=== PATIENT | female | born 1935 | race Caucasian/White ===

== ENCOUNTER 2016-10-06 15:19 | Inpatient (IN) | payer MEDICARE, OTHER ==
[~2016-10-06] VITALS: Ht 175.3 cm; Wt 95.5 kg
[~2016-10-06 15:19] MED LIST: ALBU8.5H2 INHALATION; ASPI81TA3 PO; FURO-129 PO; HYDR-3825 PO; IPRA4AER IH; LEVO5TAB13 PO; LOVA20TA PO; METO25TA6 PO; MONT10TA23 PO; QUET50TA55 PO; SYMINH IH; TIOT18CA3 IH; TIZA4TAB4 PO; WARF1TAB PO
[2016-10-06 15:27] VITALS: BP 124/88; PULSE 147; RESP 22; O2SAT 93
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
[2016-10-06 19:36] LABS: BASOPHILS % (AUTO) 0.3 % (0-3); EOSINOPHILS % (AUTO) 1.9 % (0-5); Mean Corpuscular Hemoglobin 28.1 pg (27.0-35.0); Mean Corpuscular Volume 86.6 fL (81-100); NEUTROPHILS % (AUTO) 57.7 % (40-74); Platelet Count 212 bil/L (150-400)
[2016-10-06 21:51] LABS: INR 1.76 ratio
--- NOTE | 2016-10-06 22:21 | PCM.EDPN ---
ED Note Date of Service Oct 06, 2016 81-year-old female who presents with suicidal ideation and delusional disorder. She was completely worked up by MICHELE Centeno. Her charting was reviewed and physical examination and interview was also done by myself. The only thing I would add at this time is urinalysis with culture if indicated. She was evaluated by the CDP and will be detained for 72 hour hold to the [facility]. Dylon Renee MD Oct 06, 2016 22:21
[2016-10-06 23:44] VITALS: BP 156/78; PULSE 82; RESP 18; O2SAT 97
[2016-10-07] MEDS ORDERED: Benzocaine-Menthol Lozenge 2/Pkg PO PRN (00:05)
[2016-10-07] MEDS ORDERED: Alum-Mag Hydrox-Simeth 30 mL Suspension PO PRN (00:05)
[2016-10-07] MEDS ORDERED: Magnesium Hydroxide 10 mL Oral Concentration PO PRN (00:05)
--- NOTE | 2016-10-07 00:33 | NUR ---
This conservation science officer began sitting 2:1 with pt at approx 2100. Pt at time was pleasant, confused, paranoid and delusional. PT was not oriented to situation and had no idea why she was in hospital. Pt became upset and irritable when [facility] evaluated pt a little after 2100 and served pt detainment paperwork at approx 2215, Pt was labile: irritable/tearful. This conservation science officer and other sitter were able to calm pt. PT admitted to inpatient MH unit upstairs at approx 2327 discharging from ED.
--- NOTE | 2016-10-07 01:55 | NUR ---
Observations 1900 to 0700 Pt arrived on the floor from our ED at 23:35 and was able to complete the intake process even though it was very difficult due to the Pt being hard of hearing. Pt spent some time in the DR before going to her room for the night. Pt first appeared asleep at 01:00 and was observed every 15 minutes through the night as directed.
[2016-10-07] MEDS ORDERED: OMEP40CA36 PO (02:30)
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
[2016-10-07] MEDS: Tiotropium 18mcg/Cap 5 Capsule Inhaler Kit INHALATION SCH (08:34)
[2016-10-07 08:39] LABS: INR 1.56 ratio
[2016-10-07] MEDS: HYDROcodone-APAP 7.5-325 mg Tablet PO PRN (09:00)
--- NOTE | 2016-10-07 09:56 | PCM.CONPHA ---
Assessment/Plan Assessment/Plan ANTICOAGULATION MANAGEMENT BY PHARMACY -INDICATION: AFIB -HOME DOSE: 6 mg; SuWeFrSa? -CONCURRENT ANTICOAGULATION: NONE -CRCL: 58.61 ML/MIN -COAG TRENDS: Date Oct 07-Sep INR 1.76 1.56 ~ -0.2 Warf Dose none 5 MG -[id number] SCORE: 5 PLAN: Unsure when patients last dose was or even what home dose is. Patient reported 6 mg; SuWeFrSa but poor historian and no ext med rec to verify. With current INR at 1.56 (goal between 2-3) and today supposedly being her dosing day will give a OT dose of 5 mg and monitor INR to see how she responds. Serial INRs ordered and pharmacy will continue to monitor and adjust doses as needed. Thank you. Rose Fabian PharmD Oct 07, 2016 09:56
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
[2016-10-07 10:51] LABS: APPEARANCE,URINE TURBID (CLEAR,HAZY); COLOR,URINE YELLOW (YELLOW); OCCULT BLOOD,URINE NEGATIVE (NEGATIVE); UROBILINOGEN,URINE NORMAL (NORMAL)
[2016-10-07 13:44] VITALS: BP 138/81; PULSE 70; RESP 18
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
--- NOTE | 2016-10-07 16:17 | NUR ---
Nursing Dayshift: S: "Didn't you give me a pain pill this morning? I get one when I get up and when I go to bed." O: Patient received an extra strength Vicodin this AM for c/o back pain at a 07/06. "Hardly helps. I've been taking them for 10 years. they quit working long ago." Watching Family Feud at present with a peer of similar age. Fair appetite at meals. Interactive on approach. A: Med compliant. P: CPOC. Monitor mood and behavior.
--- NOTE | 2016-10-07 19:59 | NUR ---
Obs Dayshift Pt spent half the day in her room and the rest out in the milieu, talking w/ peers, watching TV or drawing. Pt is polite, superficial engaging w/ peers. Made a few calls today. Pleasant, polite, calm, encouraging toward some peers. Met w/ a friend from [facility] that was able to drop off her belongings and visit for a quick min. She stated that another group is looking at trying to get pt. into another living situation. Pt has Ok ADL's, Good meals
--- NOTE | 2016-10-08 04:15 | NUR ---
nursing, nights, 11-7 s/o- has appeared to sleep after 2129 during q 15 minute assessments. a- no apparent distress. p- monitor behavior/emotional state, quality, times and amount of sleep, use and effect of medication. fuentes
[2016-10-08] MEDS: HYDROcodone-APAP 7.5-325 mg Tablet PO PRN ×2 (04:43→22:07)
--- NOTE | 2016-10-08 04:47 | NUR ---
nursing, nights, 11-7 s- i hurt all over. the bed is so hard. thank you. o- asked for and received norco 7.5 at 0445 and returned to bed. a- will monitor effect. p- monitor behavior/emotional state, quality, times and amount of sleep, use and effect of medication. fuentes
--- NOTE | 2016-10-08 05:12 | NUR ---
Pt out on unit some this evening. Interacted with others appropriately. Asleep at 2130. Pt observed every 15 minutes as ordered.
[2016-10-08] MEDS: Tiotropium 18mcg/Cap 5 Capsule Inhaler Kit INHALATION SCH (08:42)
[2016-10-08 08:55] LABS: INR 1.39 ratio
[2016-10-08 09:00] VITALS: BP 116/72; PULSE 65; RESP 16
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
--- NOTE | 2016-10-08 14:47 | NUR ---
Nursing Note [id number] Behavior S/O: Pt refused 100mg of Seroquel stating she only takes 25 mg which she took. Pt took all other medications. Pleasant & cooperative with cares. Conversation tracking clear & organized with normal rate & rhythm. Pt able to ambulate by self. Interacts well with peers & staff. A: Pt clear with conversations with this staff member. P: Provide supportive environment. Monitor medications & effects.
--- NOTE | 2016-10-08 18:37 | NUR ---
Observations [id number] Pt was in common area upon start of shift watching TV with peer. Pt appeared confused at times regarding where her room was. She attended all meals eating 100%. Pt also attended group in the afternoon and worked on art. Pt interacted with other peers, but was agitated at times. She appeared upset regarding the food, stating that she can't eat fatty foods and was upset that she didn't get cake at dinner. Pt showered in the evening and requested to do laundry. Pt was observed every 15 minutes of shift as directed.
--- NOTE | 2016-10-08 22:47 | NUR ---
Nurses PRN Patient requested and received Jackson 1 tab for c/o arthritic back pain,05/06,maintenance technician 3rd shift to assess response.
--- NOTE | 2016-10-09 03:43 | NUR ---
nursing, nights, 11-7 s/o- has appeared to sleep after [id number] and after 0015 during q 15 minute assessments. a- no apparent distress. p- monitor behavior/emotional state, quality, times and amount of sleep, use and effect of medication. fuentes
--- NOTE | 2016-10-09 03:58 | NUR ---
Pt out on unit some later this evening. Interacted with others appropriately. Asleep [id number]. Pt observed every 15 minutes as ordered.
[2016-10-09 08:00] LABS: INR 1.75 ratio
[2016-10-09] MEDS: Tiotropium 18mcg/Cap 5 Capsule Inhaler Kit INHALATION SCH (08:14)
[2016-10-09] MEDS: HYDROcodone-APAP 7.5-325 mg Tablet PO PRN ×2 (08:21→20:11)
--- NOTE | 2016-10-09 11:46 | PROG NOTE ---
[address] [address] PROGRESS NOTE PATIENT: ROXANA ESPOSITO : 1935 MR#: [id number] ADMIT: 10/06/2016 JOB ID: [id number] DATE: 10/09/2016 CHIEF COMPLAINT: "I do not know where I am gonna live now." This is per patient report. HISTORY OF PRESENT ILLNESS: As stated above, the patient openly identified significant concern of her current housing. She indicated yesterday she received many of her belongings from the previous landlord. She indicated that she was informed that she was fully evicted from her current housing. She indicated that last evening she declined her full dose of Seroquel but evidently per nursing staff report this was administered at 100 mg. I did indicate to her that I elected to discontinue the morning dose of medications, and she was appreciative. She is much more alert this morning, able to track and follow conversations. She indicated that she feels not as tired or sedate. OBJECTIVE: On mental status exam, she was bright, cooperative. She was quite tangential in her speech, openly rambling about her previous difficulties with her neighbor and also her loss of belongings. Her mood is described as neutral. Her affect was congruent. Her thought process shows evidence of racing thoughts at times, some loose and disorganized thinking. She is fairly tangential but pleasant and redirectable. Her thought content, she denied any evidence of current suicidal or homicidal ideation. She was alert, oriented to person, place, and time. Attention and concentration fleeting. Insight and judgment are poor. PHYSICAL EXAMINATION: Vital signs of current. Temperature is 36.2, pulse 65, respirations 16, BP 116/72. MEDICATION REVIEW: Includes: 1. Warfarin 7 mg daily. 2. Seroquel 100 mg q.h.s. 3. Singulair 10 mg q.h.s. 4. Zyrtec 5 mg q.h.s. 5. Aspirin 81 mg daily. 6. Lasix 20 mg daily. 7. Lopressor 25 mg b.i.d. 8. Spiriva 18 mcg daily. 9. Zanaflex 4 mg q.8 h. p.r.n. 10. [place] 1 tablet q.6 h. p.r.n. for pain. ASSESSMENT: AXIS I 1. Dementia, not otherwise specified. 2. Delusional disorder, not otherwise specified. AXIS II Deferred. AXIS III 1. History of hypertension. 2. Chronic obstructive pulmonary disease. 3. Hyperlipidemia. 4. Deep venous thrombosis. AXIS IV Stressors are noted for absence of housing, disposition planning. AXIS V Global Assessment of Functioning current 30. PLAN: 1. Recommendation is for continuation of all medications noted. 2. Recommendation is for connections to be placed with ATS based on vulnerable adult. At this time I do not feel that the patient has full capacity of care of self, and possible assignment of an emergency guardian would be beneficial. 3. Recommendation for pursuit of additional supportive housing has been discussed with the treatment team, and this will be of further followed up by both Dr. Colvin and Dr. Camejo over the next several days.
--- NOTE | 2016-10-09 12:00 | NUR ---
Nursing Day Shift- S- "If you are bringing me my medications, I don't want to take that sleepy one in the morning." (Seroquel.) O- Pt. was awake and appropriately dressed for breakfast. She was polite with a loud tone. (Pt. has hearing loss per report.) She eat 50% breakfast and took her medications without issue. She was able to identify the names, doses and indications for her medications. Pt requested Drake 725/325 at 0830 for back pain rated 7/'10. She denied thoughts of self harm and was not overheard making any delusional comments. A- Appears to have improved mood since admission. P- Cont. TP
[2016-10-09 14:15] VITALS: BP 128/76; PULSE 106; RESP 16
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
--- NOTE | 2016-10-10 04:24 | NUR ---
Nursing Note Noc Pt asleep upon arrival to unit. Sleep time noted 2215 with 6 hr uninterrupted sleep. Q15 min safety checks done per protocol, no distress noted, no PRN's given on shift, WC sleep, behavior, safety
--- NOTE | 2016-10-10 05:30 | NUR ---
Pt out on unit this evening. Interacted with others appropriately. Asleep 9235. Pt observed every 15 minutes as ordered.
[2016-10-10] MEDS: Tiotropium 18mcg/Cap 5 Capsule Inhaler Kit INHALATION SCH (08:30)
[2016-10-10 08:46] LABS: INR 2.1 ratio
[2016-10-10] MEDS: HYDROcodone-APAP 7.5-325 mg Tablet PO PRN ×2 (09:06→20:24)
--- NOTE | 2016-10-10 12:05 | PCM.PNPSY ---
Subjective Date of Service Oct 10, 2016 Subjective I spent 30 minutes both reviewing treatment plan and providing supportive/ educational psychotherapy. I spent less than 50% of the time counseling the patient. I reviewed the treatment plan with the patient and discussed options available including the potential risks, benefits and side effects. Robin reports that she is fine, has no reason to be here, and no problem with thought organization or mood stability. She is aware that she has been evicted from her apartment. She feels that this is an injustice and that people do not understand. She continues to have a relatively fixed delusional belief about neighbors actively trying to poison her. She was quite upset about her difficulties with her neighbor and also the her loss of belongings. Staff reports that she has been bright and active on the unit and during group activities. She slept 8 hours and denies depression symptoms review. She denies medication side effects. Patient was not able to identify her medications nor what they were used to treat. She did not appear to understand the need for medications by the questions she asked during our discussion. Current Medications Current Medications Quetiapine Fumarate 100 mg HS PO Last administered on 10/09/16 20:16; Admin Dose 25 MG; Start 10/08/16 at 21:00 Warfarin Sodium 5 mg OT ONCE PO Last administered on 10/08/16 16:53; Admin Dose 5 MG; Start 10/08/16 at 17:00; Stop 10/08/16 at 17:01; Status DC Warfarin Sodium/ Warfarin Sodium 7 mg DAILY@17 ONCE PO Last administered on 17:42; Admin Dose 7 MG; Start 10/09/16 at 17:00; Stop 10/09/16 at 17:01 ; Status DC Mental Status Exam Appearance: Neat/well groomed Attitude: Pleasant, Cooperative Behavior: Distractible Affect: Well Modulated/Appropriate Mood: Irritable, Dysthymic Thought Process/Associations: Tangential Speech Production: Normal Speech Rate: Normal Speech Articulation: Normal Thought Content: Suspicious Danger to Self/Suicidal Ideati: None Danger to Others: None Delusions: Paranoid Consciousness: Hyper-vigilant Orientation: Person, Place, Date Estimate Intellectual Function: Above Average Attention/Concentration & Cogn: Impaired Insight: Limited Judgement: Poor Result Diagram: 10/06/16192810/06/161928 Mental Health Plan Robin remains quite disorganized, but is now able to follow conversations. She reportedly has had no evidence of suicidal ideation, intent, or plan but there was some concern that she had taken too much of her medications. She appears to be paranoid and has beliefs that have been fixed since her first admission in March believing that her neighbor is tracking, following her, video taping her and potentially that he has poisoned her through poison gas which is coming through the [place]illips She appears paranoid and has delusional beliefs that have been fairly fixed since her first admission in March believing that her neighbor is tracking, following her, video taping her and potentially that he has poisoned her through poison gas which is coming through the phillips [place] AXIS I 1. Dementia, not otherwise specified. 2. Delusional disorder, not otherwise specified. AXIS II Deferred. AXIS III 1. History of hypertension. 2. Chronic obstructive pulmonary disease. 3. Hyperlipidemia. 4. Deep venous thrombosis. AXIS IV Stressors are noted for absence of housing, disposition planning. AXIS V Global Assessment of Functioning current 30. Medications Medications to address General Physical Health 1. Warfarin 7 mg daily. 2. Seroquel 100 mg q.h.s. 3. Singulair 10 mg q.h.s. 4. Zyrtec 5 mg q.h.s. 5. Aspirin 81 mg daily. 6. Lasix 20 mg daily. 7. Lopressor 25 mg b.i.d. 8. Spiriva 18 mcg daily. 9. Zanaflex 4 mg q.8 h. p.r.n. 10. [place] 1 tablet q.6 h. p.r.n. for pain. Treatments Patient is being provided with a high degree of safety through the structure and active adult engagement. We will focus on developing improved coping skills and identifying stressors that may have led to current episode. We will attempt to: Integrate into therapeutic groups, milieu and individual therapy. Maintain in a closely monitored and structured unit Provide low-stimulation environment Obtain collateral data to assist in treatment planning Assess degree of lability of affect and impulse control Establish a consistent sleep pattern Medication effective in stabilization of mood and/or thought process Tolerates medication without side effects Patient will be on the following psychiatric medications: Seroquel 100 at bedtime Evaluate iatrogenic drug use as an etiology Address patient's legal status Patient is voluntary Disposition Recommendation is for connections to be placed with ATS based on vulnerable adult. At this time I do not feel that the patient has full capacity of care of self, and possible assignment of an emergency guardian would be beneficial. Recommendation for pursuit of additional supportive housing Adria Colvin MD Oct 10, 2016 12:05
[2016-10-10] MEDS: Albuterol-Ipratropium 120 Spray 4 Gm Inhaler INHALATION PRN (12:37)
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
[2016-10-10 14:21] VITALS: BP 98/56; PULSE 90; RESP 24
--- NOTE | 2016-10-10 16:13 | NUR ---
Observations 0700 to 1900 Pt maintained behavioral control throughout shift. Pt is confused, labile, agitated, friendly. Pt enjoys interacting with peers. "and how are you today." -- to multiple peers. Pt spent much of shift out on unit and in RT room, drawing and doing art and watching TV. Pt is cooperative and seeks interaction. Pt ate 75-100% of meals and was observed every 15 minutes as ordered.
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
--- NOTE | 2016-10-10 20:34 | NUR ---
MEDICATION REFUSAL Please note that the pt. refused to take her scheduled full dose of 100 mg Seroquel at HS. She agreed to take 25 mg. She reported the full dose "makes me loopy".
--- NOTE | 2016-10-11 04:06 | NUR ---
Observations from 0279-3243 Pt spent most of the evening with peers watching tv. Pt did attend wrap up group but only mentioned that her day was ok and she wasn't having any anxiety. Pt didn't want to elaborate further and went to bed shortly after group. Pt was observed asleep at 2245 and has appeared to sleep throughout the night. Pt has been monitored every 15 minutes as directed.
[2016-10-11] MEDS: HYDROcodone-APAP 7.5-325 mg Tablet PO PRN ×2 (04:37→20:31)
[2016-10-11 06:48] VITALS: BP 97/64; PULSE 90; RESP 16
[2016-10-11] MEDS: Tiotropium 18mcg/Cap 5 Capsule Inhaler Kit INHALATION SCH (07:52)
--- NOTE | 2016-10-11 11:02 | NUR ---
Nursing Day Shift- P- "Honey, you need to help her with that." (Pt. comment to staff regarding a peer.) O- Pt. was awake for breakfast. She had slept 7.5 hours per report. Pt. eat well at breakfast. She was polite and social with staff and peers. Pt. requested to do her own laundry, and completed it. A- Pt. is still delusional regarding her neighbors per staff report. No delusional comments made or overheard thus far today. P- Cont. TP.
--- NOTE | 2016-10-11 12:07 | PCM.PNPSY ---
Subjective Date of Service Oct 11, 2016 Subjective I spent 20 minutes both reviewing treatment plan and providing supportive/ educational psychotherapy. I spent less than 50% of the time counseling the patient. Robin repeats that she is fine, has no reason to be here, and no problem with thought organization or mood stability. She is aware that she has been evicted from her apartment. She feels that this is an injustice and that people do not understand. She continues to have a relatively fixed delusional belief about neighbors actively trying to poison her. She was quite upset about her difficulties with her neighbor and also the her loss of belongings. Staff reports that she has been bright and active on the unit and during group activities. She slept 8 hours and denies depression symptoms review. She denies medication side effects. Current Medications Current Medications Warfarin Sodium 5 mg DAILY@17 ONCE PO Last administered on 10/10/16 17:34; Admin Dose 5 MG; Start 10/10/16 at 17:00; Stop 10/10/16 at 17:01; Status DC Warfarin Sodium/ Warfarin Sodium 7 mg DAILY@17 ONCE PO Last administered on 17:42; Admin Dose 7 MG; Start 10/09/16 at 17:00; Stop 10/09/16 at 17:01 ; Status DC Mental Status Exam Appearance: Neat/well groomed Attitude: Pleasant, Cooperative Behavior: Distractible Affect: Well Modulated/Appropriate Mood: Irritable, Dysthymic Thought Process/Associations: Tangential Speech Production: Normal Speech Rate: Normal Speech Articulation: Normal Thought Content: Suspicious Danger to Self/Suicidal Ideati: None Danger to Others: None Delusions: Paranoid Consciousness: Hyper-vigilant Orientation: Person, Place, Date Estimate Intellectual Function: Above Average Attention/Concentration & Cogn: Impaired Insight: Limited Judgement: Poor Result Diagram: 10/06/16192810/06/161928 Mental Health Plan Robin remains quite disorganized, but is now able to follow conversations. She reportedly has had no evidence of suicidal ideation, intent, or plan but there was some concern that she had taken too much of her medications. She appears to be paranoid and has beliefs that have been fixed since her first admission in March believing that her neighbor is tracking, following her, video taping her and potentially that he has poisoned her through poison gas which is coming through the [place]. She continues to have this delusion today. She is voluntary and willing to be here. [place] AXIS I 1. Dementia, not otherwise specified. 2. Delusional disorder, not otherwise specified. AXIS II Deferred. AXIS III 1. History of hypertension. 2. Chronic obstructive pulmonary disease. 3. Hyperlipidemia. 4. Deep venous thrombosis. AXIS IV Stressors are noted for absence of housing, disposition planning. AXIS V Global Assessment of Functioning current 35. Medications Medications to address General Physical Health 1. Warfarin 7 mg daily. 2. Singulair 10 mg q.h.s. 4. Zyrtec 5 mg q.h.s. 5. Aspirin 81 mg daily. 6. Lasix 20 mg daily. 7. Lopressor 25 mg b.i.d. 8. Spiriva 18 mcg daily. 9. Zanaflex 4 mg q.8 h. p.r.n. 10. [place] 1 tablet q.6 h. p.r.n. for pain. Treatments Patient is being provided with a high degree of safety through the structure and active adult engagement. We will focus on developing improved coping skills and identifying stressors that may have led to current episode. We will attempt to: Integrate into therapeutic groups, milieu and individual therapy. Maintain in a closely monitored and structured unit Provide low-stimulation environment Obtain collateral data to assist in treatment planning Assess degree of lability of affect and impulse control Establish a consistent sleep pattern Medication effective in stabilization of mood and/or thought process Tolerates medication without side effects Patient will be on the following psychiatric medications: Patient refusing Seroquel 100 at bedtime but is willing to take 25 mg. I will write an order to clarify this Evaluate iatrogenic drug use as an etiology Address patient's legal status Patient is voluntary Disposition Recommendation is for connections to be placed with ATS based on vulnerable adult. At this time I do not feel that the patient has full capacity of care of self, and possible assignment of an emergency guardian would be beneficial. Recommendation for pursuit of additional supportive housing Adria Colvin MD Oct 11, 2016 12:07
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
--- NOTE | 2016-10-11 18:01 | NUR ---
INR P-Patient's INR today 3.0 I-Pharmacy called [facility] pharmacist verbalized approval to give Coumadin E- 3mg Coumadin given 1700.
--- NOTE | 2016-10-11 18:10 | NUR ---
Observations 0700 to 1900 Pt affect and mood was friendly, social and content. Pt speech and eye contact was good. Pt was in [place] most of the day. Pt attended group and unit activities. Pt did not attend community meeting and did not set a daily goal. Pt did some arts and crafts. Pt was social with staff and peers when approached. Pt attended meals in D.R. and ate 75% of all meals. Pt ate snacks. Pt maintained behavior throughout the shift. Pt was polite, pleasant and cooperative. Pt was observed every 15 minutes throughout the shift as ordered.
--- NOTE | 2016-10-11 22:00 | NUR ---
NURSING NOTE [id number] Orientation= x3 Mood= "oh, good!" Affect= pleasant, cooperative, calm Behavior= friendly and social w/peers, visible on unit watching TV, coloring, and chatting w/peers. Pt. mostly med compliant though she continues to refuse the full dose of HS Seroquel, opting to only take 25 mg vs. the scheduled 100 mg d/t complaints of excessive sedation. Pt. c/o excessive frequency of urination today and when informed she takes 20 mg Lasix daily here, she became upset and exclaimed "well that's all wrong-- I only take 5 mg at home, come on now!" Advised pt. to discuss this w/her doctor and will pass it on in shift report. Thought processes= can be quite logical and linear in conversation, but delusions about her home life still persist
--- NOTE | 2016-10-12 04:22 | NUR ---
Observations from 6142-7857 Pt had a visitor at the beginning of shift, and when asked if she wanted to visit, she said no, but changed her mind a few minutes later. Pt seemed to enjoy the visit but has been complaining of shoulder and neck pain from playing football. Pt appeared asleep at 2300 and has appeared to sleep soundly throughout the night and has been monitored every 15 minutes as directed.
--- NOTE | 2016-10-12 06:12 | NUR ---
Patient slept throughout noc shift, 7.0 hours plus. No requests for PRNS.
[2016-10-12] MEDS: Tiotropium 18mcg/Cap 5 Capsule Inhaler Kit INHALATION SCH (08:32)
[2016-10-12] MEDS: HYDROcodone-APAP 7.5-325 mg Tablet PO PRN ×2 (08:36→21:24)
[2016-10-12 09:00] VITALS: BP 133/72; PULSE 115; RESP 16
[2016-10-12 09:45] LABS: INR 4.52 ratio
[2016-10-12 10:12] VITALS: BP 133/72; PULSE 115; RESP 16
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
--- NOTE | 2016-10-12 18:19 | NUR ---
Observations [id number] Pt was asleep upon start of shift. Pt attended all meals eating 100%. She spent much of the day in the dining area working on art, and attended the art group. She also watched movies with peers. Pt appears to be very concerned regarding a few other patients who are elderly and has taken on a motherly role with them, encouraging them to eat and walk. Pt is friendly with staff and others. Pt appeared to be hard of hearing at times as well. She was observed every 15 minutes for the duration of the shift as directed.
--- NOTE | 2016-10-12 18:42 | PCM.PNPSY ---
Subjective Date of Service Oct 12, 2016 Subjective The patient reports today that she is hard of hearing and had difficulty hearing questions but answered appropriately. She appeared fixated on her neighbor who she feels had resulted in her eviction. She also stated that she was only willing to take 25 mg of the quetiapine as that is what she been taking in the community. For the last 3 days she is only been taking 25 mg of the 100 mg dose. According to [facility] she last received quetiapine 25 mg 3 times a day in April. She is oriented to Wednesday the 2016. "[facility] [place]." She reports that although she has had some memory difficulties she is unwilling to started a medication such as Namenda without 's approval. She reports using Vicodin twice a day or less in order to avoid "becoming a drug addict." Sleep: 7+ hours Appetite: "Okay" Suicidal and homicidal ideation: Denies Auditory hallucinations: Denies Visual hallucinations: Denies Other Psychotic Symptoms: Ongoing paranoia regarding neighbor appears at baseline. Anxiety: Denies Depression: Denies Current Medications Current Medications Warfarin Sodium 3 mg DAILY@17 ONCE PO Last administered on 10/11/16t 17:12; Admin Dose 3 MG; Start 10/11/16 at 17:00; Stop 10/11/16 at 17:01; Status DC Mental Status Exam Appearance: Neat/well groomed Attitude: Pleasant, Cooperative Behavior: Distractible (somewhat) Affect: Well Modulated/Appropriate Mood: Euthymic Thought Process/Associations: Tangential, Circumstantial Speech Production: Loud Speech Rate: Normal Speech Articulation: Normal Thought Content: Suspicious (only regarding neighbor) Danger to Self/Suicidal Ideati: None Danger to Others: None Delusions: Paranoid Hallucinations: Auditory (Denies), Visual (Denies) Consciousness: Hyper-vigilant Orientation: Person, Place, Date, Situation Memory: Grossly Intact Estimate Intellectual Function: Average Attention/Concentration & Cogn: Impaired Insight: Limited Judgement: Limited Result Diagram: 10/06/16192810/06/161928 Mental Health Plan The patient is an 81-year-old female with a history of delusional disorder and 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 She is only been taking portion of her quetiapine and so her full response to this medication is unknown. The patient is currently homeless and is not appropriate for discharge to a snf given her age, medical condition, and mobility issues. She is not currently willing to start Namenda and Dr. Leos had left for the day and will be available until noon tomorrow. [place] AXIS I 1. Dementia, not otherwise specified. 2. Delusional disorder, not otherwise specified. AXIS II Deferred. AXIS III 1. History of hypertension. 2. Chronic obstructive pulmonary disease. 3. Hyperlipidemia. 4. Deep venous thrombosis. AXIS IV psychosocial stressors moderate to severe with homelessness, poor insight, lack of social supports, and poor coping skills. AXIS V Global Assessment of Functioning current 35. Medications [place] 7.5/325 Furosemide 20 mg daily Metoprolol 25 mg twice daily Spiriva 18 g daily Aspirin 81 mg daily Singulair 10 mg nightly Cetirizine 5 mg at bedtime Combivent one spray 4 times a day as needed Quetiapine 100 mg at bedtime Treatments 1. Change quetiapine to 25 mg in the morning and 50 mg at bedtime to better address adherence. 2. The patient is likely in need of an adult family home or similar arrangements. 3. A guardian may be necessary given patient's limited understanding. 4. The patient is encouraged to participate with groups and individual therapy. 5. The patient will meet with the treatment team on a daily basis to assess symptoms, side effects, and response to treatment. Sanjay Camejo MD Oct 12, 2016 18:42
[2016-10-12] MEDS: Albuterol-Ipratropium 120 Spray 4 Gm Inhaler INHALATION PRN (21:20)
--- NOTE | 2016-10-13 01:08 | NUR ---
Observations 1900 to 0700 Pt was out in the DR watching TV for most of the night. Pt first appeared asleep at 01:00 and was observed every 15 minutes through the night as directed. Addendum: 10/13/16 at 0112 by LUNA BARNARD [facility] Pt first appeared 22:00 not 01:00.
--- NOTE | 2016-10-13 06:35 | NUR ---
Nursing Noc Pt spent her time out on the unit happily crafting and keeping herself busy. Appropriate & social with peers. Well groomed and aware of medications. She stated "Bring my medications in their packets so I can tell you what I take and don't take". Took evening medications without difficulty. Vicodin 1 tab po prn requested and given for pain with apparent results. No further complaints. Adequate sleep through the night with no noted distress or awakening per protocol checks. Total sleep over 8 hours.
[2016-10-13] MEDS: Tiotropium 18mcg/Cap 5 Capsule Inhaler Kit INHALATION SCH (08:36)
[2016-10-13] MEDS: HYDROcodone-APAP 7.5-325 mg Tablet PO PRN ×2 (08:39→21:25)
[2016-10-13 08:45] VITALS: BP 104/61; PULSE 102; RESP 17
[2016-10-13] MEDS: Albuterol-Ipratropium 120 Spray 4 Gm Inhaler INHALATION PRN (08:46)
--- NOTE | 2016-10-13 15:34 | NUR ---
Passenger Solicitor./c.m. S.:"I'm fine, fine." O.: met with pt. and MD together. Pt. complained about pain and uncomfortable bed. She didn't sleep well last night "because of pain. My neck hurts." She also is not eating well. "I'm not eating what I supposed to eat. They don't give right food. At home I used to have maybe 1 meal a day." She denied SI/HI, denied AH/VH, rated depression at 5-6/10, anxiety - "Oh, I don't want to go to a different apartment." Pt. said that she had section 8 housing before and she was wondering if she still has it. She didn't want to go to [facility]. A.: pt. is cooperative, pleasant, social with peers, hard of hearing. P.: monitor behavior, work on housing; follow care plan.
--- NOTE | 2016-10-13 17:05 | PCM.PNPSY ---
Subjective Date of Service Oct 13, 2016 Subjective The patient reports that she is "fine" today but "just a little upset that some of the other patients are taking food off of peoples trays. I hid mine." She also reports being frustrated that she does not have oxygen at night and that she gets up to pace in the middle of the night. She reported that the light in the hallway has bothered her somewhat last night as she keeps her door open due to a history of claustrophobia. The patient did refuse the 25 mg daily dose of quetiapine but did take the 50 mg nightly dose last night. She is denying side effects. Sleep: "Not good because of pain" Appetite: She reports typically only eating one to 2 meals a day. Suicidal and homicidal ideation: Denies Auditory hallucinations/Visual hallucinations: Denies Other Psychotic Symptoms: Chronic paranoia regarding neighbor. Less focused on neighbor today.. Anxiety: "Sometimes... I just want to live in my own place. I just gets stressed out a little bit." Depression: "A little here and there" 5-03/06. Current Medications Current Medications Quetiapine Fumarate 50 mg HS PO Last administered on 10/12/16t 21:14; Admin Dose 50 MG; Start 10/12/16 at 21:00 Warfarin Sodium 3 mg DAILY@17 ONCE PO Last administered on 10/11/16 17:12; Admin Dose 3 MG; Start 10/11/16 at 17:00; Stop 10/11/16 at 17:01; Status DC Mental Status Exam Appearance: Neat/well groomed Attitude: Pleasant, Cooperative Behavior: Distractible (somewhat) Affect: Well Modulated/Appropriate Mood: Euthymic Thought Process/Associations: Tangential, Circumstantial Speech Production: Loud Speech Rate: Normal Speech Articulation: Normal Thought Content: Suspicious (only regarding neighbor) Danger to Self/Suicidal Ideati: None Danger to Others: None Delusions: Paranoid Hallucinations: Auditory (Denies), Visual (Denies) Consciousness: Hyper-vigilant Orientation: Person, Place, Date, Situation Memory: Grossly Intact Estimate Intellectual Function: Average Attention/Concentration & Cogn: Impaired Insight: Limited Judgement: Limited Mental Health Plan The patient is an 81-year-old female with a history of delusional disorder and 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 She is only been taking portion of her quetiapine and so her full response to this medication is unknown. The patient is currently homeless and is not appropriate for discharge to a custodial given her age, medical condition, and mobility issues. She is not currently willing to start Namenda and Dr. Leos had left for the day. The patient did take an increased dose of quetiapine last night and hopefully will do so again tonight. [place] AXIS I 1. Dementia, not otherwise specified. 2. Delusional disorder, not otherwise specified. AXIS II Deferred. AXIS III 1. History of hypertension. 2. Chronic obstructive pulmonary disease. 3. Hyperlipidemia. 4. Deep venous thrombosis. AXIS IV psychosocial stressors moderate to severe with homelessness, poor insight, lack of social supports, and poor coping skills. AXIS V Global Assessment of Functioning current 35. Medications [place] 7.5/325 Furosemide 20 mg daily Metoprolol 25 mg twice daily Spiriva 18 g daily Aspirin 81 mg daily Singulair 10 mg nightly Cetirizine 5 mg at bedtime Combivent one spray 4 times a day as needed Quetiapine 25 milligrams daily and 50 mg at bedtime Treatments 1. Continue to offer quetiapine 25 mg in the morning and 50 mg at bedtime to better address adherence as the patient appears to have decreased paranoia. 2. The patient is likely in need of an adult family home or similar arrangements and [facility]. 3. A guardian may be necessary given patient's limited understanding of her situation. 4. The patient is encouraged to participate with groups and individual therapy. 5. The patient will meet with the treatment team on a daily basis to assess symptoms, side effects, and response to treatment. 6. Continue to encourage patient to start Namenda. Sanjay Camejo MD Oct 13, 2016 17:05
--- NOTE | 2016-10-13 17:25 | NUR ---
Observations [id number] Pt was in room upon start of shift, sleeping. Pt's mood appeared pleasant, and she is friendly with other peers and staff. She did become agitated regarding the meals, stating that she has high cholesterol and that "I can't eat this food." Pt does present with a good appetite and has been eating 75% of meals. Pt spent much of the day in the dining area, working on crafts and coloring. Pt was friendly with staff and peers, and attended group. She was observed every 15 minutes of shift as directed.
--- NOTE | 2016-10-13 18:34 | NUR ---
Nursin to 1900 S/O: Robin is social, out in the open unit DR most of the shift. She is directive toward peers telling them what to do, attempting to help them with various activities. She attended a craft group. No requests for PRN meds. noted. Met with evaluators from [facility] who came to unit. Pleasant. A: Awaiting disposition plans for discharge. P: Continue to be supportive toward discharge.
--- NOTE | 2016-10-14 01:55 | NUR ---
Observations 1900 to 0700 Pt was out in the DR watching TV for most of the night. Pt was very social last night. Pt stayed up later than usual to finish the movie that was on. Pt first appeared asleep at 23:30 and was observed every 15 minutes through the night as directed.
--- NOTE | 2016-10-14 05:44 | NUR ---
Nursing Noc Pt Out in DR watching TV and having snack until bed time. Pleasant and interacting appropriate with staff and patients. Lab INR noted to be elevated to 3.0. [facility] to evaluate today for possible placement. Pt currently resistant to starting new medication. Continuing to monitor sleep time, mood, behavior, emotional state and safety by Q15 minute safety checks.
[2016-10-14] MEDS: Tiotropium 18mcg/Cap 5 Capsule Inhaler Kit INHALATION SCH (08:43)
[2016-10-14] MEDS: HYDROcodone-APAP 7.5-325 mg Tablet PO PRN ×3 (08:50→21:13)
[2016-10-14 09:35] LABS: INR 2.75 ratio
[2016-10-14 10:24] VITALS: BP 114/65; PULSE 108
--- NOTE | 2016-10-14 13:15 | NUR ---
Nursing Day Shift- S/O- Pt. was awake for breakfast. She had 5.5+ hours of sleep per report. Pt. continues to be outgoing and social on the unit. She denied suicidal thoughts. Pt. crafted and watched TV. No delusional or paranoid comments overheard or expressed. A- Pt. appears at ease and comfortable on the unit. P- Cont. BHTP.
--- NOTE | 2016-10-14 18:25 | NUR ---
Obs Dayshift Pt is spending most of her day out in the milieu, engaging, intrusive, loud. Pt is overly helpful toward peers, ordering peers to do things. Pt is participating in group activities, polite. Good ADL's, Good meals
--- NOTE | 2016-10-14 18:28 | NUR ---
Business Communications Instructor/Counselor: S/O: Patient slept 7+ hours last night as per staff. She denies S/I and H/I. She denies auditory and visual hallucinations. Depression is 5/10 and anxiety is 3/10. A: Patient is cooperative, distractible, tangential, suspicious about neighbor, paranoid, limited insight, limited judgment. P: Follow care plan coordinate out-patient providers.
--- NOTE | 2016-10-14 19:53 | PCM.PNPSY ---
Subjective Date of Service Oct 14, 2016 Subjective The patient continues to only take certain doses of quetiapine and tends to avoid taking the daily quetiapine stating that it makes her feel too drowsy. She is still upset about the person from her old apartment building and blames him for her eviction. She further states that he had wanted a romantic relationship with her. She reported no other concerns with others. She stated she was seen by [facility] today that they had no housing. The patient states that she had worked until the age of 71 and would eventually like to get back to some kind of work. Sleep: 7+ hours Appetite: Okay Suicidal and homicidal ideation: Denies Auditory hallucinations/Visual hallucinations: Denies Other Psychotic Symptoms: Ongoing paranoia regarding manager of business Anxiety: Denies Depression: "Only because I got evicted." Current Medications Current Medications Quetiapine Fumarate 50 mg HS PO Last administered on 10/13/16 21:20; Admin Dose 25 MG; Start 10/12/16 at 21:00 Warfarin Sodium 3 mg ONCE ONCE PO Last administered on 10/14/16 17:30; Admin Dose 3 MG; Start 10/14/16 at 17:20; Stop 10/14/16 at 17:21; Status DC Warfarin Sodium 5 mg ONCE ONCE PO Last administered on 10/13/16 17:03; Admin Dose 5 MG; Start 10/13/16 at 17:00; Stop 10/13/16 at 17:01; Status DC Mental Status Exam Appearance: Neat/well groomed Attitude: Pleasant, Cooperative Behavior: Distractible (somewhat) Affect: Well Modulated/Appropriate Mood: Euthymic Thought Process/Associations: Goal Directed (more so today), Circumstantial Speech Production: Loud Speech Rate: Normal Speech Articulation: Normal Thought Content: Suspicious (only regarding neighbor) Danger to Self/Suicidal Ideati: None Danger to Others: None Delusions: Paranoid Hallucinations: Auditory (Denies), Visual (Denies) Consciousness: Hyper-vigilant Orientation: Person, Place, Date, Situation Memory: Grossly Intact Estimate Intellectual Function: Average Attention/Concentration & Cogn: Impaired Insight: Limited Judgement: Limited Mental Health Plan The patient is an 81-year-old female with a history of delusional disorder and 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 She is only been taking portion of her quetiapine and so her full response to this medication is unknown. The patient is currently homeless and is not appropriate for discharge to a assisted given her age, medical condition, and mobility issues. She is not currently willing to start Namenda and Dr. Leos had left for the day. The patient again refused over 25 mg of quetiapine at bedtime. Although fixated on neighbor she is not agitated and is pleasant and cooperative on the unit.. [place] AXIS I 1. Dementia, not otherwise specified. 2. Delusional disorder, not otherwise specified. AXIS II Deferred. AXIS III 1. History of hypertension. 2. Chronic obstructive pulmonary disease. 3. Hyperlipidemia. 4. Deep venous thrombosis. AXIS IV psychosocial stressors moderate to severe with homelessness, poor insight, lack of social supports, and poor coping skills. AXIS V Global Assessment of Functioning current 35. Medications [place] 7.5/325 Furosemide 20 mg daily Metoprolol 25 mg twice daily Spiriva 18 g daily Aspirin 81 mg daily Singulair 10 mg nightly Cetirizine 5 mg at bedtime Combivent one spray 4 times a day as needed Quetiapine 25 milligrams daily and 50 mg at bedtime Warfarin as per pharmacy PT/INR still elevated today. Treatments 1. Continue to offer quetiapine 25 mg in the morning and 50 mg at bedtime to better address adherence as the patient appears to have decreased paranoia. 2. The patient is likely in need of an adult family home or similar arrangements and is [facility]. 3. A guardian may be necessary given patient's limited understanding of her situation. 4. The patient is encouraged to participate with groups and individual therapy. 5. The patient will meet with the treatment team on a daily basis to assess symptoms, side effects, and response to treatment. 6. Continue to encourage patient to start Namenda. Sanjay Camejo MD Oct 14, 2016 19:53
--- NOTE | 2016-10-14 22:31 | NUR ---
NURSING NOTE [id number] Orientation= x2 Mood= "good!" Affect= cheerful, pleasant, cooperative Behavior= pt. is very social on the unit, spending most of the shift out in the common area chatting w/peers and watching TV. She agreed to take nearly all of her HS medications but continues to refuse her entire Seroquel dose and insists on only taking 25 mg of it because "it makes me dizzy"-- of note, when this contract technical writer administered the 25 mg of Seroquel I chatted w/the pt. for no longer than 2 mins after she had swallowed it whereupon she exclaimed "ahh! I feel dizzy! See, it's that damn Seroquel-- I told you!" Educated the pt. on the time it takes for this medication to take effect but she was disinterested. Thought processes= logical, linear, no noticeable delusions discussed w/this contract technical writer amy. Denies SI/HI/AH/VH.
--- NOTE | 2016-10-15 04:53 | NUR ---
Observations 1900 to 0700 Pt was out in the DR watching TV for most of the night. Pt was very social last night. Pt visited with other Pt's until she went to bed. Pt first appeared asleep at 22:00 and was observed every 15 minutes through the night as directed.
--- NOTE | 2016-10-15 05:08 | NUR ---
nursing, nights, 11-7 s/o- has appeared to sleep after 2200 during q 15 minute assessments. a- no apparent distress. p- monitor behavior/emotional state, quality, times and amount of sleep, use and effect of medication. fuentes
[2016-10-15] MEDS: Tiotropium 18mcg/Cap 5 Capsule Inhaler Kit INHALATION SCH (07:48)
[2016-10-15] MEDS: Albuterol-Ipratropium 120 Spray 4 Gm Inhaler INHALATION PRN ×2 (07:56→23:36)
[2016-10-15] MEDS: HYDROcodone-APAP 7.5-325 mg Tablet PO PRN ×3 (07:56→23:32)
[2016-10-15 09:37] LABS: INR 2.76 ratio
[2016-10-15 10:32] VITALS: BP 109/68; PULSE 87; RESP 16
--- NOTE | 2016-10-15 11:16 | NUR ---
Nursing Day Shift- S- "I can't hear on the phone, and they wanted my SS# and I'm not giving them that! I gave the # to the because they want to talk to him." O- Pt. had slept 7+ hours per report. She was at breakfast well groomed and dressed. Pt. refused her AM Seroquel. She was encouraged to make arrangements for housing and called the numbers she was given. After, she stated the above. A- Pt. is declining prescribed medications. She appears relaxed and upbeat on the unit with good sleep. P- Pending discharge, Cont. bHTP.
--- NOTE | 2016-10-15 18:19 | NUR ---
Observations 0900 to 2130 Pt affect and mood was friendly, social and content. Pt speech and eye contact was good. Pt was in [place] most of the day, coloring and socializing. Pt attended group and unit activities. Pt attended community meeting and set a daily goal. Pt did some arts and crafts. Pt was social with staff and peers when approached. Pt attended meals in [place] and ate approximately 75%. Pt maintained behavior throughout the shift. Pt was polite, pleasant and cooperative. Pt was observed every 15 minutes throughout the shift as ordered. Pt currently has a visitor and it appears to be going well.
--- NOTE | 2016-10-15 19:12 | NUR ---
Electric Plater/Counselor: S/O: Patient slept 7+ hours last night as per staff. She denies S/I and H/I. She denies auditory and visual hallucinations. Depression and anxiety regarding housing. A: Patient is cooperative, distractible, tangential, suspicious about neighbor, paranoid, limited insight, limited judgment. P: Follow care plan coordinate out-patient providers.
--- NOTE | 2016-10-15 22:08 | PCM.PNPSY ---
Subjective Date of Service Oct 15, 2016 Subjective Discussed with patient that she is not taking medications as recommended ( quetiapine) and is stable and should be discharged. We discussed that [facility] will have a bed in the morning. The patient stated that she did not want to go there, but instead wanted to go to an apartment. Discussed that this was not possible from this location. She stated her daughter may be able to have her stay with her. Patient asked that this administrative underwriter call her old apartment. They stated that formal eviction process occurred over a 6 month period and she cannot return. No side effect complaints. Sleep: 7+ hours Appetite: good Suicidal and homicidal ideation: denies Auditory hallucinations:denies Visual hallucinations: denies Other Psychotic Symptoms: paranoia regarding apartment neighbor Anxiety: regarding housing Depression: regarding housing Current Medications Current Medications Warfarin Sodium 3 mg ONCE ONCE PO Last administered on 10/14/16 17:30; Admin Dose 3 MG; Start 10/14/16 at 17:20; Stop 10/14/16 at 17:21; Status DC Warfarin Sodium 3 mg ONCE ONCE PO Last administered on 10/15/16 16:58; Admin Dose 3 MG; Start 10/15/16 at 17:00; Stop 10/15/16 at 17:01; Status DC Mental Status Exam Vital Signs Vital Signs Date Time Temp Pulse Resp B/P Pulse Ox O2 Delivery O2 Flow Rate FiO2 10/15/16 10:32 36.4 87 16 109/68 Appearance: Neat/well groomed Attitude: Pleasant, Cooperative Behavior: Distractible (somewhat) Affect: Well Modulated/Appropriate Mood: Euthymic Thought Process/Associations: Logical/Sequential, Goal Directed, Circumstantial Speech Production: Loud Speech Rate: Normal Speech Articulation: Normal Thought Content: Suspicious (only regarding neighbor) Danger to Self/Suicidal Ideati: None Danger to Others: None Delusions: Paranoid Hallucinations: Auditory (Denies), Visual (Denies) Consciousness: Hyper-vigilant Orientation: Person, Place, Date, Situation Memory: Grossly Intact Estimate Intellectual Function: Average Attention/Concentration & Cogn: Impaired Insight: Limited Judgement: Limited Mental Health Plan The patient is an 81-year-old female with a history of delusional disorder and 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 She is only been taking portion of her quetiapine and so her full response to this medication is unknown. The patient is currently homeless and is not appropriate for discharge to a alf given her age, medical condition, and mobility issues. She is not currently willing to start Namenda without discussing with her outpatient provider. The patient again refused over 25 mg of quetiapine at bedtime. Although fixated on neighbor she is not agitated and is pleasant and cooperative on the unit. The patient is resistant to accepting reality of situation regarding housing. [place] AXIS I 1. Dementia, not otherwise specified. 2. Delusional disorder, not otherwise specified. AXIS II Deferred. AXIS III 1. History of hypertension. 2. Chronic obstructive pulmonary disease. 3. Hyperlipidemia. 4. Deep venous thrombosis. AXIS IV psychosocial stressors moderate to severe with homelessness, poor insight, lack of social supports, and poor coping skills. AXIS V Global Assessment of Functioning current 35. Medications [place] 7.5/325 Furosemide 20 mg daily Metoprolol 25 mg twice daily Spiriva 18 g daily Aspirin 81 mg daily Singulair 10 mg nightly Cetirizine 5 mg at bedtime Combivent one spray 4 times a day as needed Quetiapine 25 milligrams daily and 50 mg at bedtime Warfarin as per pharmacy PT/INR still elevated today. Treatments 1. Continue to offer quetiapine 25 mg in the morning and 50 mg at bedtime to better address adherence as the patient appears to have decreased paranoia. 2. The patient will need to follow-up with her outpatient provider, Stevie Fernandez, regarding housing. 3. The patient has been [facility] and she has a bed for tomorrow. 4. The patient is encouraged to participate with groups and individual therapy. 5. The patient will meet with the treatment team on a daily basis to assess symptoms, side effects, and response to treatment. 6. Continue to encourage patient to start Namenda after discussing with her provider. Sanjay Camejo MD Oct 15, 2016 18:00
--- NOTE | 2016-10-15 22:15 | NUR ---
Nursing Notes [id number] S: I don't know why my neck and back are hurting so much. O: Patient attending groups and out in dining room. Had a visit with a friend to night. Happy and smiling. Patient took all her meds tonight. A: Pleasant, social, appropriate. P: Monitor for response to treatment/medications. Q15 min checks for safety. Follow plan of care.
--- NOTE | 2016-10-16 05:28 | NUR ---
Pt out on unit this evening. Interacted with others appropriately. Asleep [id number]. Pt observed every 15 minutes as ordered.
[2016-10-16 08:00] VITALS: BP 102/60; PULSE 117; RESP 16
[2016-10-16 08:57] LABS: INR 2.48 ratio
[2016-10-16] MEDS: Tiotropium 18mcg/Cap 5 Capsule Inhaler Kit INHALATION SCH (09:31)
[2016-10-16] MEDS: HYDROcodone-APAP 7.5-325 mg Tablet PO PRN ×2 (09:40→21:22)
--- NOTE | 2016-10-16 11:49 | NUR ---
Nursing Day Shift- S- "I don't want to go to that Crisis Respite. I think I'll call my daughter. I felt so sick last night, I had to run to my room." O- Pt. was awake and dressed for breakfast. She was observed socializing with peers. Pt. stated the above when she was asked about her preferred pharmacy for medications. She denied all symptoms other then having felt cold. Pt. continued to socialize in the DR from breakfast until lunch. She expressed and requested numerous food preferences that are not part of the food options offered by the hospital. Pt. appears upbeat. No delusional comments elicited or overheard. Pt. declined her Scheduled AM Seroquel again. A- Homeless after a 6 month eviction notice. Mild paranoia and cognitive decline. Pt. is not participatory in discharge planning. P- Cont. [facility]
--- NOTE | 2016-10-16 17:09 | PCM.PNPSY ---
Subjective Date of Service Oct 16, 2016 Subjective The patient reports today that she is hearing multiple voices, of her and other relatives. She also periodically hears a unusual buzzing noise in her left ear. Despite multiple attempts, she is unwilling to increase her medication at bedtime, quetiapine, to decrease auditory hallucinations. She states that she is unwilling to go to crisis respite and is trying to work with family and friends to find alternate housing. The patient is denying any side effects from medication. She is unwilling to take any other medication unless she hears from Dr. Leos. A message has been left with his office. Sleep: 7.75 hours Appetite: Good. Suicidal and homicidal ideation: Denies. Auditory hallucinations: Endorses as above. Visual hallucinations: Denies. Other Psychotic Symptoms: Paranoia regarding previous neighbor monitoring her behavior. Anxiety/Depression: Reports in relation to loss of housing Current Medications Current Medications Warfarin Sodium 3 mg ONCE ONCE PO Last administered on 10/14/16 17:30; Admin Dose 3 MG; Start 10/14/16 at 17:20; Stop 10/14/16 at 17:21; Status DC Warfarin Sodium 3 mg ONCE ONCE PO Last administered on 10/15/16 16:58; Admin Dose 3 MG; Start 10/15/16 at 17:00; Stop 10/15/16 at 17:01; Status DC Warfarin Sodium 3 mg ONCE ONCE PO Last administered on 10/16/16 16:51; Admin Dose 3 MG; Start 10/16/16 at 17:00; Stop 10/16/16 at 17:01 Mental Status Exam Appearance: Neat/well groomed Attitude: Pleasant, Cooperative Behavior: Distractible (somewhat) Affect: Well Modulated/Appropriate Mood: Anxious Thought Process/Associations: Logical/Sequential, Goal Directed Speech Production: Loud (due to hard of hearing) Speech Rate: Normal Speech Articulation: Normal Thought Content: Suspicious (only regarding neighbor) Danger to Self/Suicidal Ideati: None Danger to Others: None Delusions: Paranoid Hallucinations: Auditory (Endorses), Visual (Denies) Consciousness: Hyper-vigilant Orientation: Person, Place, Date, Situation Memory: Grossly Intact Estimate Intellectual Function: Average Attention/Concentration & Cogn: Impaired Insight: Limited Judgement: Limited Mental Health Plan The patient is an 81-year-old female with a history of delusional disorder and 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 She is only been taking portion of her quetiapine and so her full response to this medication is unknown. The patient is currently experiencing auditory hallucinations and paranoia as noted above. She appears to be approaching her baseline or somewhat better. The patient is currently homeless and is not appropriate for discharge to a intermediate given her age, medical condition, and mobility issues. She is not currently willing to start Namenda without discussing with her outpatient provider. The patient again refused over 25 mg of quetiapine at bedtime. Although fixated on neighbor she is not agitated and is pleasant and cooperative on the unit. The patient is resistant to accepting reality of situation regarding housing. The patient has been referred to crisis respite, but is refusing placement. Discussion with her outpatient insurance provider regarding housing resulted in an extension until 10/19/2016 to work on disposition planning. Awaiting call back from outpatient provider regarding Namenda. [place] AXIS I 1. Dementia, not otherwise specified. 2. Psychotic disorder, not otherwise specified. AXIS II Deferred. AXIS III 1. History of hypertension. 2. Chronic obstructive pulmonary disease. 3. Hyperlipidemia. 4. Deep venous thrombosis. AXIS IV psychosocial stressors moderate to severe with homelessness, poor insight, lack of social supports, and poor coping skills. AXIS V Global Assessment of Functioning current 35. Medications [place] 7.5/325 Metoprolol 25 mg twice daily Furosemide 20 mg daily Atorvastatin 5mg at bedtime Symbicort 2 puffs bid PRN Spiriva 18 g daily Aspirin 81 mg daily Singulair 10 mg nightly Cetirizine 5 mg at bedtime Combivent one spray 4 times a day as needed Quetiapine 25 milligrams daily and 50 mg at bedtime (patient refusing all but 25mg) Warfarin as per pharmacy PT/INR. Treatments 1. Continue to offer quetiapine 25 mg in the morning and 50 mg at bedtime to better address adherence as the patient appears to have decreased paranoia but is still expressing auditory hallucinations. 2. The patient will need to follow-up with her outpatient provider, Stevie Fernandez, regarding housing and may be eligible for additional services based on income. 3. The patient has been referred to Crisis Respite services and she can be offered placement there if no other housing can be found, if she refuses she will need be given resources to a intermediate. 4. The patient is encouraged to participate with groups and individual therapy. 5. The patient will meet with the treatment team on a daily basis to assess symptoms, side effects, and response to treatment. 6. Continue to encourage patient to start Namenda after discussing with her provider. 7. Encourage patient to consider addition of Namenda to address her vascular dementia and memory issues. Sanjay Camejo MD Oct 16, 2016 17:09
--- NOTE | 2016-10-16 18:23 | NUR ---
Observations 0900 to 2130 Pt affect and mood was friendly, social and content. Pt was a little more isolative today. Pt speech and eye contact was good. Pt attended group and unit activities. Pt did some arts and crafts. Pt was social with staff and peers when approached. Pt attended meals in D.R. and ate about 50%. Pt continues to have lots of complaints about the food here. Pt maintained behavior throughout the shift. Pt was polite, pleasant and cooperative. Pt was observed every 15 minutes throughout the shift as ordered. Pt currently has a visitor and it appears to be going well.
--- NOTE | 2016-10-16 19:44 | NUR ---
Tour Narrator/Counselor: S/O: Patient slept 7.75+ hours last night as per staff. She denies S/I and H/I. She denies auditory and visual hallucinations. She did not rate depression and anxiety. A: Patient is cooperative, anxious, suspicious regarding neighbor, hyper-vigilant, limited insight, limited judgment. P: Follow care plan coordinate out-patient providers.
[2016-10-16] MEDS: Fluticasone-Salmererol 250-50 Inhaler INHALATION PRN ×2 (21:15→21:23)
[2016-10-17] MEDS: HYDROcodone-APAP 7.5-325 mg Tablet PO PRN ×3 (03:39→21:21)
--- NOTE | 2016-10-17 05:13 | NUR ---
nursing, nights, 11-7 s- can i have my pain pill. i have my sample. o- has appeared to sleep after 2300. asked for and received a norco 7.5 at 0330 for 10/10 neck/back pain with good effect easily returning to sleep. assessed q 15 minutes. a- interrupted sleep, medication helpful, provided urine sample, no apparent distress. p- monitor behavior/emotional state, quality, times and amount of sleep, use and effect of medication. fuentes
--- NOTE | 2016-10-17 05:17 | NUR ---
Pt out on unit this evening. Interacted with others appropriately. Asleep 2300. Pt observed every 15 minutes as ordered.
[2016-10-17] MEDS: Tiotropium 18mcg/Cap 5 Capsule Inhaler Kit INHALATION SCH (08:30)
[2016-10-17 10:22] LABS: INR 2.41 ratio
[2016-10-17] MEDS: Pantoprazole 40 mg ER24 Tablet PO SCH (10:26)
--- NOTE | 2016-10-17 11:09 | PROG NOTE ---
[address] [address] PROGRESS NOTE PATIENT: ROXANA ESPOSITO : 1935 MR#: [id number] ADMIT: 10/06/2016 JOB ID: [id number] DATE: 10/17/2016 IDENTIFYING DATA: An 81-year-old, lady, hospitalized initially involuntary but is now voluntary on this unit September. DIAGNOSIS: Major depression with psychotic features with rule out of a cognitive disorder, not otherwise specified. NARRATIVE: Chronic medical issues include hearing deficit, hyperlipidemia, possible COPD, GERD. She is also on blood thinners with the Pharmacy managing her INR. It was 2.4 yesterday. Chronic back pain and hypertension. She is on [place] for pain which she takes pretty regularly. She says she has been on that for 10 years, and it does help with back pain. She got 6-1/2 hours of sleep. Still some suicidal ideation but contracts for safety on the unit. States that the perceptual disturbances are less. She still has issues related to her energy level. I explained to her that part of that could be related to her multiple medical issues. She verbalizes understanding of that. She is on Seroquel 25 mg in the morning and 50 at night. She appears a little confused, initially telling me she would only take one dose and then says that she is willing to take it the way it is prescribed at present. Since she did not take one of the doses yesterday, I will leave the medicine the way it is. Continue to strengthen reality testing and educate her regarding the nature of her illness.
[2016-10-17 12:26] VITALS: BP 112/67; PULSE 112; RESP 12
--- NOTE | 2016-10-17 13:38 | NUR ---
Day shift nursing note-SI/Psychosis/Socialization S/O-"I do not want that Seroquel pill... it makes my heart jump out of my chest." "What?, what did you say?" Pt. has been cooperative, pleasant and social with her peers. She is hard of hearing but had proposal lead writer point out her the meds she needed to take. She has been doing crafts with her friends and is easily directed to other activities. She ambulates easily without needing much assistance. At 1118 she was given hydrocodone with APAP prn for back pain per request. 1 hour later she reported it was helpful. Pt. denies SI or any hallucinations. A-Cognitive decline. Getting to baseline functioning. P-Monitor for safety per protocol. Assess efficacy of meds to manage anxiety, pain or depression. Encourage socialization with peers.
--- NOTE | 2016-10-17 13:51 | NUR ---
[employer]./ c.m. S.:"I'm tired... I'm up since 4:00 am. My back is bad." O.: met with pt. and MD together in pt.'s room. She was sleeping in the middle of the morning and it took some time to wake her up. She complained about broken sleep and feeling tired. She complained about pain in her back. She rated it at 10/10 at the time of the conversation. She said that she had AH "sometimes... it's my 's voice" but she couldn't tell when she had it and how often she had it. She denied VH. She couldn't tell if she was depressed or anxious. She asked if she could go back to sleep at the end of the conversation. She was frustrated with her hearing aids. She had to repeat every question multiple times in order to hear it correctly. A.: pt. is cooperative, hard of hearing, isolative at times. P.: monitor behavior, encourage pt. to stay away from her bed, follow care plan.
--- NOTE | 2016-10-17 16:51 | NUR ---
Observations [id number] Pt maintained behavioral control throughout the shift. Pt has been very active on the unit during the shift. Pt enjoyed drawing, crafts. and interacting with peers. -- pt set daily goal to "finish my birdhouse." Pt is cooperative when approached. Pt observed every 15 minutes as ordered and ate 50% of breakfast and 25% of lunch.
--- NOTE | 2016-10-17 20:37 | NUR ---
Nurses Note PRN Patient received Ambien 5 mg and [place] 1 tab at 0 for sleep and arthritic pain, car shifter to assess response.
--- NOTE | 2016-10-18 05:20 | NUR ---
nursing, nights, 11-7 s/o- has appeared to sleep after 0 during q 15 minute assessments. a- no apparent distress. p- monitor behavior/emotional state, quality, times and amount of sleep, use and effect of medication. fuentes
--- NOTE | 2016-10-18 06:19 | NUR ---
Pt out on unit this evening enjoyed visit from friend. Interacted with others appropriately. Asleep 2230. Pt observed every 15 minutes as ordered.
[2016-10-18] MEDS: Pantoprazole 40 mg ER24 Tablet PO SCH (08:43)
[2016-10-18] MEDS: Tiotropium 18mcg/Cap 5 Capsule Inhaler Kit INHALATION SCH (08:43)
[2016-10-18 09:53] LABS: INR 2.35 ratio
--- NOTE | 2016-10-18 12:22 | NUR ---
Sailing Officer./ c.m. S.:"I was told to tell the truth so I'm telling you that I'm hearing voices every day now and I don't know why. It wasn't like that before." O.: met with pt. and MD together to discuss pt.'s progress. She denied SI/HI. She denied VH. She admitted having AH that are voices of her late and her neighbor. "They tell me about what's going on here and what has been said that I would know everything." She said that she was depressed and anxious because she was here - "I'm depressed about being anywhere than home." She complained about pain in her back and neck. She spent some time in the Dining room coloring with selected peers. She didn't want to go anywhere accept her apartment after discharge. She doesn't understand why she can't go back there. A.: pt. is cooperative, hard of hearing, social with peers, scattered in her thoughts. P.: monitor behavior, work on follow up, work on housing options; follow care plan.
[2016-10-18 13:17] VITALS: BP 110/66; PULSE 82; RESP 18
--- NOTE | 2016-10-18 13:44 | NUR ---
Nursing Note [id number] Behavior, Medications S/O: Pt ate 50% of breakfast & 80% of lunch. Pt took am medications except for Seroquel/quetiapine. She stated, "The q one makes me sleepy." Pt out in milieu most of the day. She is pleasant mostly, but can get agitated easily. Pt out in dining room doing art work with peers. Her goal today was to "color, do my crafts, & throw the football outside." Pt unable to go outside today d/t poor weather. Gait steady with walker. A: No psychotic sx noted. P: Provide supportive environment. Monitor medications & effects.
--- NOTE | 2016-10-18 15:52 | PROG NOTE ---
[address] [address] PROGRESS NOTE PATIENT: ROXANA ESPOSITO : 1935 MR#: [id number] ADMIT: 10/06/2016 JOB ID: [id number] DATE: 10/18/2016 An 81-year-old, lady was hospitalized voluntarily on this unit on October 06, 2016. DIAGNOSES: Major depression and psychotic features. Rule out dementia or delusions. Still anxious. Complains of being sedated with the Seroquel she is on. Still continues to report voices, her 's, her neighbors', feeling that somebody is constantly listening to stuff that is happening here. Somatic back pain, neck pain, frequent use of [place], 7-1/2 hours of h.s. sleep. SOCIAL: Compliant with care. She may need to switch on the antipsychotic or further increase in Seroquel. I noticed that her QTc is significantly prolonged at 527, so an option could be either Abilify or Clozaril. I will defer that to Dr. Colvin or . We will continue to reality testing. Encourage her to use minimal amount of [place].
--- NOTE | 2016-10-18 18:37 | NUR ---
OBSERVATIONS 0900 to 2130 Pt was pleasant and cooperative with staff. Pt was social with peers, spent most of the day in dining room coloring and socializing. Pt is just slightly hard of hearing, which may be partially selective. Pt ate 50% breakfast, 100% lunch, 90% dinner, as well as snacks. Pt mood does not appear to have changed since this A's last shift on 10/10. Q15 checks were maintained for safety.
[2016-10-18] MEDS: HYDROcodone-APAP 7.5-325 mg Tablet PO PRN (20:30)
--- NOTE | 2016-10-18 23:00 | NUR ---
Nurses Note Evening Patient has been loud,social and animated. At times, she is resistive to staff directions but eventually is cooperative. Patient reported she has but one hearing aid with her causing her to elevate her voice. With encouragement,patient has been able to lower her voice in conversation. She has refused 25mg of the 50mg of Seroquel scheduled at HS stating that it caused her heart to race. Will maintain q 15min. checks for safety and support.
[2016-10-18] MEDS: Albuterol-Ipratropium 120 Spray 4 Gm Inhaler INHALATION PRN (23:33)
--- NOTE | 2016-10-19 04:49 | NUR ---
Nurses Note Night Patient experienced an episode of SOB at 2333 when she received Combivent Inhaler with relief. Patient reported having had a black spot on her lung and needed to follow-up on the report. Patient admits to many years of smoking and has a loose unproductive cough at times. Patient slept well without signs of respiratory distress when checked q 15min for safety.
--- NOTE | 2016-10-19 06:12 | NUR ---
Pt out on unit this evening enjoyed coloring and interacting. Interacted with others appropriately. Asleep 0030. Pt observed every 15 minutes as ordered.
[2016-10-19 08:12] LABS: INR 2.39 ratio
--- NOTE | 2016-10-19 08:18 | PCM.PHAPRO ---
Progress Warfarin Management by Pharmacy: -inr has remained stable for the past week. will continue with warfarin 3mg this evening Karoline Carmona [facility] Oct 19, 2016 08:18
[2016-10-19] MEDS: Tiotropium 18mcg/Cap 5 Capsule Inhaler Kit INHALATION SCH ×2 (08:30→09:22)
[2016-10-19] MEDS: HYDROcodone-APAP 7.5-325 mg Tablet PO PRN ×2 (09:14→20:54)
[2016-10-19] MEDS: Pantoprazole 40 mg ER24 Tablet PO SCH (09:25)
[2016-10-19 10:05] VITALS: BP 121/59; PULSE 59; RESP 15
--- NOTE | 2016-10-19 11:27 | NUR ---
Nursing Note [id number] Behavior, Medications S/O: Pt attended morning meeting. Her goal was to go outside to the patio, color, & shower today. Pt is currently in the shower. VS stable. Pt c/o pain at a "10" on a scale of 1-10/10 the worst. Pt given [place] 7.5/325 at 0915. Pt reported on reassessment that pain had decreased to a "5." She said it helped her legs & back, but not her neck. Pt has been out in milieu this morning coloring with peers. Pt is appropriate with peers & staff. Conversation tracking clear & organized with normal rate & rhythm. Pt refused Seroquel again this morning. A: No psychotic sx noted. Brea was helpful. P: Provide supportive environment. Monitor medications & effects.
--- NOTE | 2016-10-19 12:52 | PCM.PNPSY ---
Subjective Date of Service Oct 19, 2016 Subjective I spent 30 minutes both reviewing treatment plan and providing supportive/ educational psychotherapy. I spent more than 50% of the time counseling the patient. Robin reiterated that she is fine, and that she has no problems with thought organization or mood stability. She is aware that she has been evicted from her apartment. She feels that this is an injustice and that people do not understand. She continues to have a relatively fixed delusional belief about neighbors actively trying to spy on her. She was quite upset about her difficulties with her neighbor and also the her loss of belongings. During my session she was bright and active and did not appear to be responding to internal stimuli. She slept 4.5 hours and denies depression symptoms review. She is currently refusing the low dose of antipsychotic we are offering her ( Seroquel 50 at bedtime). Current Medications Current Medications Warfarin Sodium 3 mg OT ONCE PO Last administered on 10/17/16 17:25; Admin Dose 3 MG; Start 10/17/16 at 17:00; Stop 10/17/16 at 17:01; Status DC Warfarin Sodium 3 mg OT ONCE PO Last administered on 10/18/16 17:18; Admin Dose 3 MG; Start 10/18/16 at 17:00; Stop 10/18/16 at 17:01; Status DC Mental Status Exam Appearance: Neat/well groomed Attitude: Pleasant, Cooperative Behavior: Distractible (somewhat) Affect: Well Modulated/Appropriate Mood: Anxious Thought Process/Associations: Logical/Sequential, Goal Directed Speech Production: Loud (due to hard of hearing) Speech Rate: Normal Speech Articulation: Normal Thought Content: Suspicious (only regarding neighbor) Danger to Self/Suicidal Ideati: None Danger to Others: None Delusions: Paranoid Consciousness: Alert Orientation: Person, Place, Date, Situation Memory: Grossly Intact Estimate Intellectual Function: Average Attention/Concentration & Cogn: Impaired Insight: Limited Judgement: Limited Mental Health Plan Robin has improved significantly since I saw her 7 days ago. Her thought process is no longer Disorganized, and she is able to follow conversations. She denies suicidal ideation, intent, or plan. She does not want snf care or to apply to an assisted care center. She continues to have paranoia but these beliefs have been fixed since her first admission in March believing that her neighbor is video taping her. She continues to have this delusion today. She is voluntary and and is currently refusing all antipsychotic medications. I believe the client's medically cleared for discharge. We are waiting for potential disposition options. As soon as we have a disposition and follow-up appointments The patient is clear for discharge. [place] AXIS I 1. Dementia, not otherwise specified. 2. Psychotic disorder, not otherwise specified. AXIS II Deferred. AXIS III 1. History of hypertension. 2. Chronic obstructive pulmonary disease. 3. Hyperlipidemia. 4. Deep venous thrombosis. AXIS IV psychosocial stressors moderate to severe with homelessness, poor insight, lack of social supports, and poor coping skills. AXIS V Global Assessment of Functioning current 40. Medications [place] 7.5/325 Metoprolol 25 mg twice daily Furosemide 20 mg daily Atorvastatin 5mg at bedtime Symbicort 2 puffs bid PRN Spiriva 18 g daily Aspirin 81 mg daily Singulair 10 mg nightly Cetirizine 5 mg at bedtime Combivent one spray 4 times a day as needed Quetiapine 25 milligrams daily and 50 mg at bedtime (patient refusing all but 25mg) Warfarin as per pharmacy PT/INR. Treatments 1. Continue to offer quetiapine 25 mg in the morning and 50 mg at bedtime to better address adherence as the patient appears to have decreased paranoia but is still expressing fixed delusional beliefs about people spying on her. 2. The patient will need to follow-up with her outpatient provider, Stevie Fernandez, regarding housing and may be eligible for additional services based on income. 3. The patient has been referred to Crisis Respite services and she can be offered placement there if no other housing can be found, if she refuses she will need be given resources to a snf. 4. The patient is encouraged to participate with groups and individual therapy. 5. The patient will meet with the treatment team on a daily basis to assess symptoms, side effects, and response to treatment. 6. Continue to encourage patient to start Namenda after discussing with her provider. 7. Encourage patient to consider addition of Namenda to address her vascular dementia and memory issues. Adria Colvin MD Oct 19, 2016 12:52
[2016-10-19] MEDS: Albuterol-Ipratropium 120 Spray 4 Gm Inhaler INHALATION PRN (16:24)
--- NOTE | 2016-10-19 17:42 | NUR ---
Observations 0900 to 2130 Pt affect and mood was a little more labile and irritable today. Pt was anxious. Pt used phone to call [facility] and was wondering where she is going to live when she leaves here. Pt speech and eye contact was good. Pt was in [place] most of the day, coloring and socializing. Pt attended group and unit activities. Pt attended community meeting and set a daily goal. Pt did some arts and crafts. Pt was social with staff and peers when approached. Pt attended meals in D.R. and ate approximately 100% of breakfast and 50% of lunch. Pt maintained behavior throughout the shift. Pt was polite, pleasant and cooperative. Pt was observed every 15 minutes throughout the shift as ordered.
--- NOTE | 2016-10-19 19:00 | NUR ---
NURSING NOTE [id number] Orientation= x3 Mood= "okay!" Affect= amiable, joking Behavior= visible and social in milieu, working on crafts w/peers in group room, watches TV off and on, med compliant Thought processes= appropriate, no delusions noted in conversation w/this technical report writer, tony YOUNG/MARIELA, tony RIDER/VH Addendum: 10/19/16 at 1903 by GENIA REYES RN PRAnder Albuterol @ 16:24, 1 puff
--- NOTE | 2016-10-20 03:14 | NUR ---
Observations 1900 to 0700 Pt had a visitor last night. Pt was out in the DR watching TV for most of the night. Pt was very social last night. Pt visited with other Pt's until she went to bed. Pt first appeared asleep at 23:30 and was observed every 15 minutes through the night as directed.
--- NOTE | 2016-10-20 06:25 | NUR ---
Nursing [id number] Pt appeared to sleep from 2330 during q15min safety checks. No apparent distress. Pt has not requested any PRN medications throughout night.
[2016-10-20 08:01] LABS: INR 2.88 ratio
[2016-10-20] MEDS: Tiotropium 18mcg/Cap 5 Capsule Inhaler Kit INHALATION SCH ×2 (08:30→09:01)
--- NOTE | 2016-10-20 08:47 | PCM.PHAPRO ---
Progress Warfarin Management by Pharmacy: -Inr increased to 2.88 after remaining very stable. will give a one time reduced dose of warfarin 2mg this evening and follow Karoline Carmona [facility] Oct 20, 2016 08:47
[2016-10-20] MEDS: Pantoprazole 40 mg ER24 Tablet PO SCH (09:01)
[2016-10-20] MEDS: HYDROcodone-APAP 7.5-325 mg Tablet PO PRN ×3 (09:08→21:42)
[2016-10-20] MEDS: Albuterol-Ipratropium 120 Spray 4 Gm Inhaler INHALATION PRN ×2 (09:09→21:44)
--- NOTE | 2016-10-20 09:44 | NUR ---
Delivery Rep./ c.m. S.:"I don't know what to do..." O.: met with pt. to discuss her discharge plan. She denied SI/HI. She refused to go to [facility], [place] or [facility]. "I have my social security check that goes to a special account in a bank that nobody knows about. I need to call the bank and see how much money I have there. I worked very hard to get that money!" Childhood Teacher encourage pt. to contact her bank and to find out if she could rent a room in a motel for some time. Childhood Teacher spoke with francisca Najera c.m. at [employer] in [place], yesterday. Jenny Pierce ([phone]) said that pt. didn't qualify for [place] right now because she doesn't have Medicaid supplement. Jenny asked assembly instructions writer to apply for [employer] supplement over "[email or web address]" web site in behalf of the pt. Childhood Teacher talk to pt. about it and she gave assembly instructions writer her permission to do that. Childhood Teacher started pt.'s application on line with a tracking #[id number]. Pt. complained about pain, swollen feet and inability to go back to her old apartment. She has a follow up appt. with her PCP, Dr. Obdulio Celis MD on @ 8:30 am at [facility] ([phone]) in [facility]. A.: pt. is cooperative, scattered in her thoughts, refusing to use offered temporary housing options. She is social with peers and active in the unit. P.: monitor behavior, encourage pt. to take meds, follow care plan.
[2016-10-20 10:48] VITALS: BP 119/78; PULSE 138; RESP 16
--- NOTE | 2016-10-20 12:34 | NUR ---
Nursing Note [id number] Behavior, Medications S/O: Pt ate 60% of breakfast. She has been appropriate in milieu coloring with peers this morning. She took all am medications except Seroquel. Pleasant & cooperative with cares. Makes multiple minor complaints usually about food. Pt getting phone numbers so that she can make calls this afternoon. Pt c/o back pain this morning. She requested [place] 7.5/325 at 0908 for "real bad" back pain. "It always hurts," she said today. A: No psychotic sx noted. P: Provide supportive environment. Monitor medications & effects.
--- NOTE | 2016-10-20 12:48 | PCM.PNPSY ---
Subjective Date of Service Oct 20, 2016 Subjective I spent 30 minutes both reviewing treatment plan and providing supportive/ educational psychotherapy. I spent less than 50% of the time counseling the patient she could only tolerate part of our interview. Robin would like to stay longer on the unit and is now complaining of very loud auditory hallucinations. She does not appear to be responding to internal stimuli and for the past week prior to telling her that she was ready for discharge and will be transferred to another less restrictive option she repeatedly stated that she was having no problems with thought organization or mood stability. She is aware that she has been evicted from her apartment. She feels that this is an injustice and that people do not understand. She continues to have a relatively fixed delusional belief about neighbors actively trying to spy on her. She was quite upset about her difficulties with her neighbor and also the her loss of belongings. During my session she was bright and active and did not appear to be responding to internal stimuli. She slept 4.5 hours and denies depression symptoms review. She is currently refusing the low dose of antipsychotic we are offering her ( Seroquel 50 at bedtime) despite complaining of severe auditory hallucinations Current Medications Current Medications Warfarin Sodium 3 mg DAILY@17 PO Last administered on 10/19/16t 16:22; Admin Dose 3 MG; Start 10/19/16 at 17:00; Stop 10/19/16 at 17:01; Status DC Warfarin Sodium 3 mg OT ONCE PO Last administered on 10/18/16t 17:18; Admin Dose 3 MG; Start 10/18/16 at 17:00; Stop 10/18/16 at 17:01; Status DC Mental Status Exam Vital Signs Vital Signs Date Time Temp Pulse Resp B/P Pulse Ox O2 Delivery O2 Flow Rate FiO2 10/20/16 10:48 36.0 138 16 119/78 Appearance: Neat/well groomed Attitude: Pleasant, Cooperative Behavior: Distractible (somewhat) Affect: Well Modulated/Appropriate Mood: Anxious Thought Process/Associations: Logical/Sequential, Goal Directed Speech Production: Normal Speech Rate: Normal Speech Articulation: Normal Thought Content: Negativistic, Suspicious (only regarding neighbor) Danger to Self/Suicidal Ideati: None Danger to Others: None Delusions: Paranoid Hallucinations: Auditory (Endorses) Consciousness: Alert Orientation: Person, Place, Date, Situation Memory: Grossly Intact Estimate Intellectual Function: Average Attention/Concentration & Cogn: Impaired Insight: Limited Judgement: Limited Mental Health Plan Robin had improved significantly since I saw her 7 days ago. Her thought process is no longer Disorganized, and she is able to follow conversations. She denies suicidal ideation, intent, or plan. She does not want fdc care or to apply to an assisted care center. She continues to have paranoia but these beliefs have been fixed since her first admission in March believing that her neighbor is video taping her. She continues to have this delusion today. She now is also complaining of auditory hallucinations of a severe intensity. She is voluntary and and is currently refusing all antipsychotic medications. I had been encouraged by her progress and did believe the client medically cleared for discharge. Over the past 48 hours she has been refusing medications and now is having increased paranoia and increased auditory hallucinations. We are waiting for potential disposition options. As soon as we have an appropriate disposition and follow-up appointments The patient is clear for discharge. I believe a medication override his in order due to impaired cognitive processing from underlying dementia preventing her from making appropriate decisions. Before we can proceed with the medication override evaluation I will write an affidavit for CDP's to do an snf evaluation. [place] AXIS I 1. Dementia, not otherwise specified. 2. Psychotic disorder, not otherwise specified. AXIS II Deferred. AXIS III 1. History of hypertension. 2. Chronic obstructive pulmonary disease. 3. Hyperlipidemia. 4. Deep venous thrombosis. AXIS IV psychosocial stressors moderate to severe with homelessness, poor insight, lack of social supports, and poor coping skills. AXIS V Global Assessment of Functioning current 35. Medications [place] 7.5/325 Metoprolol 25 mg twice daily Furosemide 20 mg daily Atorvastatin 5mg at bedtime Symbicort 2 puffs bid PRN Spiriva 18 g daily Aspirin 81 mg daily Singulair 10 mg nightly Cetirizine 5 mg at bedtime Combivent one spray 4 times a day as needed Quetiapine 25 milligrams daily and 50 mg at bedtime (patient refusing all but 25mg) Warfarin as per pharmacy PT/INR. Treatments 1. Continue to offer quetiapine 25 mg in the morning and 50 mg at bedtime to better address adherence as the patient appears to have decreased paranoia but is still expressing fixed delusional beliefs about people spying on her. 2. The patient will need to follow-up with her outpatient provider, [facility], regarding housing and may be eligible for additional services based on income. 3. The patient has been referred to [facility] and she can be offered placement there if no other housing can be found, if she refuses she will need be given resources to a fdc. 4. The patient is encouraged to participate with groups and individual therapy. 5. The patient will meet with the treatment team on a daily basis to assess symptoms, side effects, and response to treatment. 6. Continue to encourage patient to start Namenda after discussing with her provider. 7. Encourage patient to consider addition of Namenda to address her vascular dementia and memory issues. 8. I am ordering a [facility] P evaluation for involuntary snf as part of process to get involuntary medications legally approved for this very complex general psych patient. Adria Colvin MD Oct 20, 2016 12:48
--- NOTE | 2016-10-20 15:15 | NUR ---
Nurses PRN Patient requested and received Mercedes 1 tab for back pain 05/06,will assess response.
--- NOTE | 2016-10-20 18:03 | NUR ---
Observations [id number] Pt was asleep upon start of shift. She shared with staff that she felt more depressed today then in previous days. Pt attended group and spent most of her time in the common areas with peers. Pt ate an average of 70% of meals. Pt spent time coloring. This consumer loan underwriter helped her look up phone numbers from her cell phone in order for her to develop an exit plan. Pt stated that she would not call the numbers that instead her friend would do so. Pt was observed every 15 minutes of shift as directed.
--- NOTE | 2016-10-20 21:24 | NUR ---
NURSES NOTE 1900--0700 Patient continues to refuse part of her HS dose of seroquel, only taking 25mg. Spent most of evening coloring at table. Reports she thinks she ruined her hearing aids in the shower and is having difficulty hearing well. Cooperative with care.
[2016-10-21 08:06] LABS: INR 3.07 ratio
[2016-10-21] MEDS: Tiotropium 18mcg/Cap 5 Capsule Inhaler Kit INHALATION SCH (08:18)
[2016-10-21] MEDS: Pantoprazole 40 mg ER24 Tablet PO SCH (08:19)
[2016-10-21] MEDS: Albuterol-Ipratropium 120 Spray 4 Gm Inhaler INHALATION PRN (08:19)
[2016-10-21] MEDS: HYDROcodone-APAP 7.5-325 mg Tablet PO PRN ×2 (08:23→20:14)
--- NOTE | 2016-10-21 11:47 | PCM.PHAPRO ---
Progress Warfarin Management by Pharmacy: -Inr has increased to 3.07. pt has been very stable receiving 3mg warfarin in the past week. dose was reduced to 2mg yesterday. will reduce dose to 1mg this evening rather than holding as the hope will be to prevent a dip in the inr in the next day or two. will continue to monitor Karoline Carmona [facility] Oct 21, 2016 11:47
--- NOTE | 2016-10-21 12:45 | PCM.PNPSY ---
Subjective Date of Service Oct 21, 2016 Subjective I spent 30 minutes both reviewing treatment plan and providing supportive/ educational psychotherapy. I spent less than 50% of the time counseling the patient as she could only tolerate part of our interview. Robin repeated she would like to stay longer on the unit and continues to complain of very loud auditory hallucinations and symptoms of paranoia. She does not appear to be responding to internal stimuli Prior to telling her that she was ready for discharge and transfer to another less restrictive option she repeatedly stated that she was having no problems with thought organization or mood stability. She is aware that she has been evicted from her apartment. She feels that this is an injustice and that people do not understand. She continues to have a relatively fixed delusional belief about neighbors actively trying to spy on her. She was quite upset about her difficulties with her neighbor and also the her loss of belongings. During my session she was bright and active and did not appear to be responding to internal stimuli. She slept 8 hours and denies depression symptoms review. She is currently refusing the low dose of antipsychotic we are offering her ( Seroquel 50 at bedtime) despite complaining of severe auditory hallucinations Current Medications Current Medications Warfarin Sodium 2 mg DAILY@17 PO Last administered on 10/20/16t 17:29; Admin Dose 2 MG; Start 10/20/16 at 17:00; Stop 10/20/16 at 17:01; Status DC Warfarin Sodium 3 mg DAILY@17 PO Last administered on 10/19/16t 16:22; Admin Dose 3 MG; Start 10/19/16 at 17:00; Stop 10/19/16 at 17:01; Status DC Mental Status Exam Appearance: Neat/well groomed Attitude: Pleasant, Cooperative Behavior: Distractible (somewhat) Affect: Well Modulated/Appropriate Mood: Anxious Thought Process/Associations: Logical/Sequential, Goal Directed Speech Production: Normal Speech Rate: Normal Speech Articulation: Normal Thought Content: Negativistic, Suspicious (only regarding neighbor) Danger to Self/Suicidal Ideati: None Danger to Others: None Delusions: Paranoid Hallucinations: Auditory (Endorses) Consciousness: Alert Orientation: Person, Place, Date, Situation Memory: Grossly Intact Estimate Intellectual Function: Average Attention/Concentration & Cogn: Impaired Insight: Limited Judgement: Limited Mental Health Plan Robin had improved significantly since I saw her 7 days ago. Her thought process is no longer Disorganized, and she is able to follow conversations. She denies suicidal ideation, intent, or plan. She does not want longterm care or to apply to an assisted care center. She continues to have paranoia but these beliefs have been fixed since her first admission in March believing that her neighbor is video taping her. She continues to have this delusion today. She now is also complaining of auditory hallucinations of a severe intensity. She is voluntary and and is currently refusing all antipsychotic medications. I had been encouraged by her progress and did believe the client medically cleared for discharge. Over the past 48 hours she has been refusing medications and now is having increased paranoia and increased auditory hallucinations. We are waiting for potential disposition options. As soon as we have an appropriate disposition and follow-up appointments The patient is clear for discharge. I believe a medication override his in order due to impaired cognitive processing from underlying dementia preventing her from making appropriate decisions. Before we can proceed with the medication override evaluation I will write an [facility]. I am told by the nursing staff that she did not receive an evaluation by the [facility] designated mental health professional. I will have them call again to have somebody come evaluate the patient [place] AXIS I 1. Dementia, not otherwise specified. 2. Psychotic disorder, not otherwise specified. AXIS II Deferred. AXIS III 1. History of hypertension. 2. Chronic obstructive pulmonary disease. 3. Hyperlipidemia. 4. Deep venous thrombosis. AXIS IV psychosocial stressors moderate to severe with homelessness, poor insight, lack of social supports, and poor coping skills. AXIS V Global Assessment of Functioning current 35. Medications [place] 7.5/325 Metoprolol 25 mg twice daily Furosemide 20 mg daily Atorvastatin 5mg at bedtime Symbicort 2 puffs bid PRN Spiriva 18 g daily Aspirin 81 mg daily Singulair 10 mg nightly Cetirizine 5 mg at bedtime Combivent one spray 4 times a day as needed Quetiapine 25 milligrams daily and 50 mg at bedtime (patient refusing all but 25mg) Warfarin as per pharmacy PT/INR. Treatments 1. Continue to offer quetiapine 25 mg in the morning and 50 mg at bedtime to better address adherence as the patient appears to have decreased paranoia but is still expressing fixed delusional beliefs about people spying on her. 2. The patient will need to follow-up with her outpatient provider, Ste[facility] Fernandez, regarding housing and may be eligible for additional services based on income. 3. The patient has been referred to [facility] services and she can be offered placement there if no other housing can be found, if she refuses she will need be given resources to a longterm. 4. The patient is encouraged to participate with groups and individual therapy. 5. The patient will meet with the treatment team on a daily basis to assess symptoms, side effects, and response to treatment. 6. Continue to encourage patient to start Namenda after discussing with her provider. 7. Encourage patient to consider addition of Namenda to address her vascular dementia and memory issues. 8. I am ordering a [facility] P evaluation for involuntary group home as part of process to get involuntary medications legally approved for this very complex general psych patient. She would benefit from a 2-3 months of stabilization on a geropsychiatric unit. If this is not possible I would anticipate that she will have multiple repeat admissions to the hospital in the emergency room. Adria Colvin MD Oct 21, 2016 12:44
--- NOTE | 2016-10-21 13:07 | NUR ---
Nursing Note [id number] Behavior, Medications S/O: Pt has good appetite. VS stable. Pt coloring in dining room most of the morning. Pt has no understanding of need to get housing or how to utilize services. Pleasant & cooperative with medications & cares, but becomes agitated if asked to do something she d/n want to do. Pt refused am dose of Seroquel this morning. [facility] has been contacted to evaluated pt for a 72 hour hold. A: Pt has little insight into illness. P: Provide supportive environment. Monitor medications & effects.
--- NOTE | 2016-10-21 17:07 | NUR ---
Home Aide/Counselor: S: "I don't know why I have to leave if I don't want to leave!" O: Patient slept 8+ hours last night as per staff. She denies S/I and H/I. She denies auditory and visual hallucinations. Depression is 4/10 and anxiety is 3/10. When asked his mood, patient stated, "I don't know right now." A: Patient is uncooperative, distractible, anxious, irritable, limited insight, limited judgment. P: Follow care plan coordinate out-patient providers.
[2016-10-21 18:02] VITALS: BP 109/66; PULSE 123; RESP 18
--- NOTE | 2016-10-21 19:20 | NUR ---
Obs Dayshift Pt is spending most of her day out in the milieu, talking to peers, well engaged, coloring, art work, etc. Pt is concerned about DC'ing and going to the street but was continuing to say that she did not want to go to temp housing. Pt is loud, intrusive w/ some peers, follows staff direction fairly well. Ok ADL's, Good meals
--- NOTE | 2016-10-22 05:24 | NUR ---
Pt out on unit this evening enjoyed coloring and interacting. Interacted with others appropriately. Asleep 2300. Pt observed every 15 minutes as ordered.
--- NOTE | 2016-10-22 05:26 | NUR ---
nursing, nights, 11-7 s/o- has appeared to sleep after 2300 during q 15 minute assessments. a- no apparent distress. p- monitor behavior/emotional state, quality, times and amount of sleep, use and effect of medication. fuentes
[2016-10-22] MEDS: Tiotropium 18mcg/Cap 5 Capsule Inhaler Kit INHALATION SCH (08:25)
[2016-10-22] MEDS: Albuterol-Ipratropium 120 Spray 4 Gm Inhaler INHALATION PRN (08:25)
[2016-10-22] MEDS: Pantoprazole 40 mg ER24 Tablet PO SCH (08:26)
[2016-10-22 08:27] LABS: INR 2.22 ratio
[2016-10-22] MEDS: HYDROcodone-APAP 7.5-325 mg Tablet PO PRN ×3 (08:27→21:30)
--- NOTE | 2016-10-22 08:47 | PCM.PHAPRO ---
Progress Warfarin Management: -inr remains therapeutic today at 2.22. will continue with warfarin 3mg dose this evening and monitor Karoline Carmona [facility] Oct 22, 2016 08:47
--- NOTE | 2016-10-22 11:26 | PCM.PNPSY ---
Subjective Date of Service Oct 22, 2016 Subjective I spent 30 minutes both reviewing treatment plan and providing supportive/ educational psychotherapy. I spent less than 50% of the time counseling the patient as she could only tolerate part of our interview. Robin denied complaints of auditory hallucinations and symptoms of paranoia today. She does not appear to be responding to internal stimuli . She continues to struggle with short-term memory recall. She slept 7.5 hours and denies depression symptoms review. She is currently refusing the low dose of antipsychotic we are offering her ( Seroquel 50 at bedtime). Report that she is been ambulatory and able to attend her own activities of daily living. She needs little redirection. She seems to be responding well to the structure. Current Medications Current Medications Warfarin Sodium 1 mg DAILY@17 PO Last administered on 10/21/16 17:07; Admin Dose 1 MG; Start 10/21/16 at 17:00; Stop 10/21/16 at 17:01; Status DC Warfarin Sodium 2 mg DAILY@17 PO Last administered on 10/20/16 17:29; Admin Dose 2 MG; Start 10/20/16 at 17:00; Stop 10/20/16 at 17:01; Status DC Mental Status Exam Appearance: Neat/well groomed Attitude: Pleasant, Cooperative Behavior: No unusual behavior Affect: Well Modulated/Appropriate Mood: Euthymic Thought Process/Associations: Logical/Sequential, Goal Directed Speech Production: Normal Speech Rate: Normal Speech Articulation: Normal Thought Content: Negativistic Danger to Self/Suicidal Ideati: None Danger to Others: None Delusions: Paranoid Hallucinations: Auditory (Endorses) Consciousness: Alert Orientation: Person, Place, Date, Situation Memory: Grossly Intact Estimate Intellectual Function: Average Attention/Concentration & Cogn: Impaired Insight: Limited Judgement: Limited Mental Health Plan Robin had improved significantly since I saw her 7 days ago. Her thought process is no longer Disorganized, and she is able to follow conversations. She denies suicidal ideation, intent, or plan. She does not want longterm care or to apply to an assisted care center. She continues to have paranoia but these beliefs have been fixed since her first admission in March believing that her neighbor is video taping her. She continues to have this delusion today. She denies auditory hallucinations today. She is voluntary and and is currently refusing all antipsychotic medications. I am concerned that she will fail in an adult family home if she has no antipsychotic and the increased stimulation of an outpatient setting. I had been encouraged by her progress (she responded well to the structure and active adult engagement she receives here) and I believe the client medically cleared for discharge. We are waiting for potential disposition options. As soon as we have an appropriate disposition and follow-up appointments The patient is clear for discharge. I attempted to start a legal process that would make a medication override possible. The CDP's did not feel it was appropriate to come to do an evaluation because she was not a danger to herself or a danger to others. I am requesting an evaluation for grave disability. Short of going to the assisted process we are also working on a Medicaid application form and we will try to get her into an adult family home. The patient needs a protective payee as well as a guardian due to her combination of psychosis and dementia. [place] AXIS I 1. Dementia, not otherwise specified. 2. Psychotic disorder, not otherwise specified. AXIS II Deferred. AXIS III 1. History of hypertension. 2. Chronic obstructive pulmonary disease. 3. Hyperlipidemia. 4. Deep venous thrombosis. AXIS IV psychosocial stressors moderate to severe with homelessness, poor insight, lack of social supports, and poor coping skills. AXIS V Global Assessment of Functioning current 35. Medications [place] 7.5/325 Metoprolol 25 mg twice daily Furosemide 20 mg daily Atorvastatin 5mg at bedtime Symbicort 2 puffs bid PRN Spiriva 18 g daily Aspirin 81 mg daily Singulair 10 mg nightly Cetirizine 5 mg at bedtime Combivent one spray 4 times a day as needed Quetiapine 25 milligrams daily and 50 mg at bedtime (patient refusing all but 25mg) Warfarin as per pharmacy PT/INR. Treatments 1. Continue to offer quetiapine 25 mg in the morning and 50 mg at bedtime to better address adherence as the patient appears to have decreased paranoia but is still expressing fixed delusional beliefs about people spying on her. 2. The patient will need to follow-up with her outpatient provider, [facility], regarding housing and may be eligible for additional services based on income. 3. The patient has been referred to Crisis [facility] services and she can be offered placement there if no other housing can be found, if she refuses she will need be given resources to a longterm. 4. The patient is encouraged to participate with groups and individual therapy. 5. The patient will meet with the treatment team on a daily basis to assess symptoms, side effects, and response to treatment. 6. I am g a [facility] P evaluation for involuntary assisted as part of process to get involuntary medications legally approved for this very complex general psych patient. She would benefit from a 2-3 months of stabilization on a geropsychiatric unit. If this is not possible I would anticipate that she will have multiple repeat admissions to the hospital in the emergency room. Adria Colvin MD Oct 22, 2016 11:26
--- NOTE | 2016-10-22 13:47 | NUR ---
Nursing Note [id number] Behavior, Medications S/O: Pt ate 75% of lunch & 60% of breakfast. Pt has multiple complaints about food & her neck hurting. Pt states she hit her head on the freezer door when getting something out of the refrigerator. Staff is unaware of this happening. Pt has been putting hot pack on her left shoulder. [place] 7.5/325 given at 0825 with some effect. Pt stated she doesn't want to use [place] more often than "every 6 hours. I don't want to become addicted to it." Pt out in milieu for meals, groups, & art activities. Pleasant & cooperative with underlying agitation. Conversation tracking clear & organized with normal rate & rhythm. Pt frustrated this morning because she has no place to go when she gets out of the hospital. Pt then made a few phone calls. Combivent inhaler given per pt request for SOB at 0825. A: Pt homeless & having difficulty adjusting to change in living circumstances. P: Provide supportive environment. Monitor medications & effects. CM to assist in trying to find appropriate living situation.
--- NOTE | 2016-10-22 16:37 | NUR ---
Observations 0700 to 1900 Pt affect and mood was friendly, social and content. Pt speech and eye contact was good. Pt attended group and unit activities. Pt did some coloring, whish she stated that she likes to do at home too. Pt was social with staff and peers when approached. Pt attended meals in [facility] and ate about 75%. Pt continues to have lots of complaints about the food here. Pt maintained behavior throughout the shift. Pt was polite, pleasant and cooperative. Pt was observed every 15 minutes throughout the shift as ordered.
--- NOTE | 2016-10-22 16:48 | NUR ---
Ferryboat Operator Helper/Counselor: S: "They are going to be mad at me for telling you about what they did to me." O: Patient slept 7.5 hours last night as per staff. She denies S/I and H/I. She reports hearing voices saying "You've signed your warrant." She denies visual hallucinations. Depression is "pretty high" and anxiety is "pretty high." When asked his mood, patient stated, "Depressed." Patient sated that her previous neighbors are involved with a lot of killings. "They hooked their cable in to my television and computer. They can hear what I'm saying and see what I'm doing." A: Patient is cooperative, anxious, depressed, anxious, fair insight, fair judgment. P: Follow care plan coordinate out-patient providers. Case Management: Intake and Referral Form completed and faxed to [facility]. and voice [phone]. Mindy Hodge RN
[2016-10-22 18:29] VITALS: BP 110/66; PULSE 128; RESP 16
--- NOTE | 2016-10-23 04:40 | NUR ---
Pt out on unit this evening enjoyed coloring and interacting. Rude to another Pt saying her blood mother was a whore. Tried to put a piece of apple down the staff shirt when told no outside foods were allowed on unit. Asleep 2245. Pt observed every 15 minutes as ordered.
--- NOTE | 2016-10-23 05:11 | NUR ---
nursing, nights, 11-7 s/o- has appeared to sleep 2245 during q 15 minute assessments. a- no apparent distress. p- monitor behavior/emotional state, quality, times and amount of sleep, use and effect of medication. fuentes
[2016-10-23 09:00] VITALS: BP 134/94; PULSE 106; RESP 16
[2016-10-23] MEDS: HYDROcodone-APAP 7.5-325 mg Tablet PO PRN ×2 (09:10→21:07)
[2016-10-23] MEDS: Pantoprazole 40 mg ER24 Tablet PO SCH (09:10)
[2016-10-23] MEDS: Fluticasone-Salmererol 250-50 Inhaler INHALATION PRN (09:11)
[2016-10-23 09:20] LABS: INR 1.96 ratio
[2016-10-23] MEDS: Tiotropium 18mcg/Cap 5 Capsule Inhaler Kit INHALATION SCH (10:21)
--- NOTE | 2016-10-23 10:59 | PCM.PNPSY ---
Subjective Date of Service Oct 23, 2016 Subjective I spent 30 minutes both reviewing treatment plan and providing supportive/ educational psychotherapy. I spent less than 50% of the time counseling the patient as she could only tolerate part of our interview. Robin denied complaints of auditory hallucinations and symptoms of paranoia. She does not appear to be responding to internal stimuli . She continues to struggle with short-term memory recall. She slept 7.5 hours and denies depression symptoms review. She is currently taking the low dose of antipsychotic we are offering her ( Seroquel 50 at bedtime). Report that she is been ambulatory and able to attend her own activities of daily living. She needs little redirection. She seems to be responding well to the structure. Current Medications Current Medications Warfarin Sodium 1 mg DAILY@17 PO Last administered on 10/21/16 17:07; Admin Dose 1 MG; Start 10/21/16 at 17:00; Stop 10/21/16 at 17:01; Status DC Warfarin Sodium 3 mg DAILY@17 PO Last administered on 10/22/16 17:25; Admin Dose 3 MG; Start 10/22/16 at 17:00; Stop 10/22/16 at 17:01; Status DC Mental Status Exam Appearance: Neat/well groomed Attitude: Pleasant, Cooperative Behavior: No unusual behavior Affect: Well Modulated/Appropriate Mood: Euthymic Thought Process/Associations: Logical/Sequential, Goal Directed Speech Production: Normal Speech Rate: Normal Speech Articulation: Normal Thought Content: Negativistic Danger to Self/Suicidal Ideati: None Danger to Others: None Delusions: Paranoid Consciousness: Alert Orientation: Person, Place, Date, Situation Memory: Grossly Intact Estimate Intellectual Function: Average Attention/Concentration & Cogn: Impaired Insight: Limited Judgement: Limited Mental Health Plan Robin had improved significantly since I saw her 7 days ago. Her thought process is no longer Disorganized, and she is able to follow conversations. She denies suicidal ideation, intent, or plan. She does not want alf care or to apply to an assisted care center. She continues to have paranoia but these beliefs have been fixed since her first admission in March believing that her neighbor is video taping her. She continues to have this delusion today. She denies auditory hallucinations today. She is voluntary and and is currently refusing all antipsychotic medications. I am concerned that she will fail in an adult family home if she has no antipsychotic and the increased stimulation of an outpatient setting. I had been encouraged by her progress (she responded well to the structure and active adult engagement she receives here) and I believe the client medically cleared for discharge. We are waiting for potential disposition options. As soon as we have an appropriate disposition and follow-up appointments The patient is clear for discharge. I attempted to start a legal process that would make a medication override possible. The CDP's did not feel it was appropriate to come to do an evaluation because she was not a danger to herself or a danger to others. I am requesting an evaluation for grave disability. Short of going to the half-way process we are also working on a Medicaid application form and we will try to get her into an adult family home. The patient needs a protective payee as well as a guardian due to her combination of paranoia and progressing dementia. [place] AXIS I 1. Dementia, not otherwise specified. 2. Psychotic disorder, not otherwise specified. AXIS II Deferred. AXIS III 1. History of hypertension. 2. Chronic obstructive pulmonary disease. 3. Hyperlipidemia. 4. Deep venous thrombosis. AXIS IV psychosocial stressors moderate to severe with homelessness, poor insight, lack of social supports, and poor coping skills. AXIS V Global Assessment of Functioning current 35. Medications [place] 7.5/325 Metoprolol 25 mg twice daily Furosemide 20 mg daily Atorvastatin 5mg at bedtime Symbicort 2 puffs bid PRN Spiriva 18 g daily Aspirin 81 mg daily Singulair 10 mg nightly Cetirizine 5 mg at bedtime Combivent one spray 4 times a day as needed Quetiapine 25 milligrams daily and 50 mg at bedtime (patient refusing all but 25mg) Warfarin as per pharmacy PT/INR. Treatments 1. quetiapine 25 mg 50 mg at bedtime to better address adherence as the patient appears to have decreased paranoia but is still expressing fixed delusional beliefs about people spying on her. 2. The patient will need to follow-up with her outpatient provider, Stevie Fernandez, regarding housing and may be eligible for additional services based on income. 3. The patient has been referred to Crisis Respite services and she can be offered placement there if no other housing can be found, if she refuses she will need be given resources to a alf. 4. The patient is encouraged to participate with groups and individual therapy. 5. The patient will meet with the treatment team on a daily basis to assess symptoms, side effects, and response to treatment. 6. I am asking for a [facility] evaluation for involuntary half-way as part of process to get this very complex geriatric and psych patient. She would benefit from a 2-3 months of stabilization on a geropsychiatric unit. If this is not possible I would anticipate that she will have multiple repeat admissions to the hospital in the emergency room. Adria Colvin MD Oct 23, 2016 10:59
--- NOTE | 2016-10-23 11:51 | NUR ---
NURS NOTE AM BP 106/61. Furosemide [address] Colvin's orders.
--- NOTE | 2016-10-23 17:37 | NUR ---
Braker Passenger Train/Counselor: S: "My neck and head are hurting, but I took my medicine last night." O: Patient slept 7.5 hours last night as per staff. She denies S/I and H/I. She reports still hearing voices. She denies visual hallucinations. Depression and anxiety is "pretty high." When asked his mood, patient stated, "Hopeful." Case Management in the process of trying to work with patient to find an Adult Family Home for patient. A: Patient is cooperative, euthymic, anxious, limited insight, limited judgment. P: Follow care plan, coordinate out-patient providers and Adult Family Home.
--- NOTE | 2016-10-23 17:54 | NUR ---
[facility] Day Shift Pt maintained behavioral control throughout the shift. Pt affect appears mostly euthymic. Pt spends most of the shift sitting quietly/interacting with peers in the dining room, resting in her room, and participating in unit activities. Pt is pleasant and appropriate with staff and peers when active on the unit. Pt attended community meeting and all group activities throughout the shift. Pt attended all meals and ate approx 100% of all meals.
--- NOTE | 2016-10-23 18:06 | NUR ---
S/O: Pt complained of headache at 0900. [place] 7.5/325 given at 0910 with some effect. Withheld furosemide 20 mg in AM per Dr. Colvin direction, BP 106/61. Stated "my stomach isn't so good, I think it's that heart pill you gave me this morning" at 1645. Given coumadin 2.5 mg 1700, INR 1.96. Pt out in milieu for meals, groups, & art activities. Pleasant & cooperative with underlying agitation. Conversation tracking clear & organized with normal rate & rhythm. Pt frustrated this morning with med administration r/t withholding furosemide. A: Pt homeless & cooperating more with social work in finding placement. P: Continue to monitor, encourage participating in discharge planning.
--- NOTE | 2016-10-24 05:10 | NUR ---
Nursing Noc Pt isolative this shift, first noted to be asleep at 2030 then up for snack and back to bed the rest of this shift. Possible discharge Wednesday or re-eval as G.D. Pt currently voluntary and in need of agreeable discharge plan. Pt cooperative with all medications this shift. Continuing to monitor, mood, behavior, emotional state, sleep quality and medications. BHCP
--- NOTE | 2016-10-24 06:01 | NUR ---
Pt out on unit this evening enjoyed coloring and interacting. Asleep 1375. Pt observed every 15 minutes as ordered.
[2016-10-24] MEDS: HYDROcodone-APAP 7.5-325 mg Tablet PO PRN ×2 (07:37→21:34)
[2016-10-24] MEDS: Pantoprazole 40 mg ER24 Tablet PO SCH (07:37)
[2016-10-24] MEDS: Tiotropium 18mcg/Cap 5 Capsule Inhaler Kit INHALATION SCH (08:30)
[2016-10-24 08:55] LABS: INR 1.86 ratio
--- NOTE | 2016-10-24 09:20 | NUR ---
NURS Note re: furosemide withheld Furosemide 20 mg withheld. BP 104/[address] consult [address] Colvin for further instruction. Addendum: 10/24/16 at 1901 by SULLY WHITNEY RN S/O "Why is C so mean to me? What did I do to her?" Pt was frustrated in AM about aggressive behavior from C the night before. Complained of headache and back in AM given PRN [place], responded well. Endorsed depression and anxiety as 10/10 in AM; but mood improved throughout day. Out of unit much of shift interacting appropriately with other pts and staff. 3mg coumadin with dinner. A: Pt is clear, coherent, and oriented to person, place, and time. Pt is willing to cooperate with social work on housing placement planning. P: Provide calm environment. Speak slowly and clearly.
[2016-10-24 12:19] VITALS: BP 104/59; PULSE 73; RESP 15
--- NOTE | 2016-10-24 15:01 | PCM.PHAPRO ---
Progress RWP RWP SLF SLF SLF SLF rtm DFF -Oct 18-Oct 19-Oct 20-Oct 21-Oct 22-Oct 23-Oct 24-Sep 2.41 2.35 2.39 2.88 3.07 2.22 1.96 1.86 -0.07 2.39 0.49 0.19 1.96 1.96 -0.1 3 3 3MG 2MG 1MG 3MG 2.5 MG 3 MG INR dropped 1.86. Will order warfarin 3 mg dose today. Thanks! -Raulito Jade, [facility] Raulito Jade Oct 24, 2016 15:01
--- NOTE | 2016-10-24 15:32 | PCM.PNPSY ---
Subjective Date of Service Oct 24, 2016 Subjective I spent 20 minutes both reviewing treatment plan and providing supportive/ educational psychotherapy. I spent more than 50% of the time counseling the patient . Robin denied complaints of auditory hallucinations and symptoms of paranoia. She does not appear to be responding to internal stimuli . She continues to struggle with short-term memory recall. She slept 7.5 hours and denies depression symptoms review. She is currently taking the low dose of antipsychotic we are offering her ( Seroquel 50 at bedtime). Staff Report that she is been ambulatory and able to attend her own activities of daily living. She needs little redirection. She seems to be responding well to the structure. Current Medications Current Medications Warfarin Sodium 2.5 mg DAILY@17 ONCE PO Last administered on 10/23/16 17:38; Admin Dose 2.5 MG; Start 10/23/16 at 17:00; Stop 10/23/16 at 17:01; Status DC Warfarin Sodium 3 mg DAILY@17 PO Last administered on 10/22/16t 17:25; Admin Dose 3 MG; Start 10/22/16 at 17:00; Stop 10/22/16 at 17:01; Status DC Mental Status Exam Vital Signs Vital Signs Date Time Temp Pulse Resp B/P Pulse Ox O2 Delivery O2 Flow Rate FiO2 10/24/16 12:19 36.0 73 15 104/59 Appearance: Neat/well groomed Attitude: Pleasant, Cooperative Behavior: No unusual behavior Affect: Well Modulated/Appropriate Mood: Euthymic Thought Process/Associations: Logical/Sequential, Goal Directed Speech Production: Normal Speech Rate: Normal Speech Articulation: Normal Thought Content: Negativistic Danger to Self/Suicidal Ideati: None Danger to Others: None Delusions: Paranoid Consciousness: Alert Orientation: Person, Place, Date, Situation Memory: Grossly Intact Estimate Intellectual Function: Average Attention/Concentration & Cogn: Impaired Insight: Limited Judgement: Limited Mental Health Plan Robin had improved significantly since I saw her 7 days ago. Her thought process is no longer Disorganized, and she is able to follow conversations. She denies suicidal ideation, intent, or plan. She does not want residential care or to apply to an assisted care center. She continues to have paranoia but these beliefs have been fixed since her first admission in March believing that her neighbor is video taping her. She continues to have this delusion today. She denies auditory hallucinations today. She is voluntary and and is currently refusing all antipsychotic medications. I am concerned that she will fail in an adult family home if she has no antipsychotic and the increased stimulation of an outpatient setting. I had been encouraged by her progress (she responded well to the structure and active adult engagement she receives here) and I believe the client medically cleared for discharge. We are waiting for potential disposition options. As soon as we have an appropriate disposition and follow-up appointments The patient is clear for discharge. I attempted to start a legal process that would make a medication override possible. The CDP's did not feel it was appropriate to come to do an evaluation because she was not a danger to herself or a danger to others. I am requesting an evaluation for grave disability. Short of going to the senior care process we are also working on a Medicaid application form and we will try to get her into an adult family home. The patient needs a protective payee as well as a guardian due to her combination of paranoia and progressing dementia. [place] AXIS I 1. Dementia, not otherwise specified. 2. Psychotic disorder, not otherwise specified. AXIS II Deferred. AXIS III 1. History of hypertension. 2. Chronic obstructive pulmonary disease. 3. Hyperlipidemia. 4. Deep venous thrombosis. AXIS IV psychosocial stressors moderate to severe with homelessness, poor insight, lack of social supports, and poor coping skills. AXIS V Global Assessment of Functioning current 40. Medications [place] 7.5/325 Metoprolol 25 mg twice daily Furosemide 20 mg daily Atorvastatin 5mg at bedtime Symbicort 2 puffs bid PRN Spiriva 18 g daily Aspirin 81 mg daily Singulair 10 mg nightly Cetirizine 5 mg at bedtime Combivent one spray 4 times a day as needed Quetiapine 25 milligrams daily and 50 mg at bedtime (patient refusing all but 25mg) Warfarin as per pharmacy PT/INR. Treatments 1. quetiapine 50 mg at bedtime appears to have decreased paranoia and is no longer expressing fixed delusional beliefs about people spying on her. 2. The patient will need to follow-up with her outpatient provider, Stevie Fernandez, regarding housing and may be eligible for additional services based on income. 3. The patient has been referred to Crisis Respite services and she can be offered placement there if no other housing can be found, if she refuses she will need be given resources to a residential. 4. The patient is encouraged to participate with groups and individual therapy. 5. The patient will meet with the treatment team on a daily basis to assess symptoms, side effects, and response to treatment. 6. we are working with Adult Protective Services and the state to come up with different options for disposition. 7. Patient ready for discharge when we have a disposition Adria Colvin MD Oct 24, 2016 15:31
--- NOTE | 2016-10-24 17:23 | NUR ---
Observations 0700 to 1900 Pt maintained behavioral control throughout the shift. Pt attended community activities throughout the shift and set daily goal to clean room, color, and go outside. Pt enjoyed coloring and and interacting with other pts. Pt continues to be picky regarding food, but has trouble describing what foods she likes. Pt ate 65-100% of meals and was observed every 15 minutes as ordered.
--- NOTE | 2016-10-24 18:46 | NUR ---
Reclamation Kettle Tender./ c.m. S.:"I was feeling better but C. was very mean to me. She is very angry and hostile towards me." O.: met with pt. to discuss her discharge plan. She denied SI/HI, she couldn't tell if she was depressed or not - "I don't know." She couldn't tell if she was anxious or not. She said that she enjoyed coloring and talking to people. She was thinking about a [address] on [address] in [facility] but she wanted to make sure that it was "a good clean place". She was going to check out her money. She wanted to know if there is a promotion rate for a weekly rent. A.: pt. is cooperative, pleasant, social with peers, has a good eye contact and a good affect. P.: monitor behavior, work on housing, follow care plan.
[2016-10-24] MEDS: Albuterol-Ipratropium 120 Spray 4 Gm Inhaler INHALATION PRN (21:34)
--- NOTE | 2016-10-25 05:40 | NUR ---
Nursing noc Pt to sleep at 2200 and remained asleep throughout this shift. Reported to process description writer poor PO intake and being upset about another patients behavior. Monitored safety, mood, behavior, emotional state by Q15 minute visual checks. Reported one episode of Diarrhea and abdominal pain yesterday.
[2016-10-25 08:32] LABS: INR 1.81 ratio
[2016-10-25] MEDS: Pantoprazole 40 mg ER24 Tablet PO SCH (08:51)
[2016-10-25] MEDS: Tiotropium 18mcg/Cap 5 Capsule Inhaler Kit INHALATION SCH (08:52)
[2016-10-25] MEDS: HYDROcodone-APAP 7.5-325 mg Tablet PO PRN (08:57)
[2016-10-25] MEDS: Albuterol-Ipratropium 120 Spray 4 Gm Inhaler INHALATION PRN (08:58)
[2016-10-25 10:52] VITALS: BP 106/52; PULSE 108; RESP 16
--- NOTE | 2016-10-25 11:54 | NUR ---
Nursing Day Shift- S- "Good morning honey. Here's my laundry." O- Pt. had slept 7.5 hours plus per report. She was awake and well dressed and groomed for breakfast. Pt. had made her bed and gathered her laundry. Pt. colored and socialized in the DR until lunch. She denied depression or anxiety. A- Pt. was able to identify the purpose, dose and name for her AM medications. P- Cont. BHTP.
--- NOTE | 2016-10-25 12:07 | PCM.PNPSY ---
Subjective Date of Service Oct 25, 2016 Subjective I spent 20 minutes both reviewing treatment plan and providing supportive/ educational psychotherapy. I spent more than 50% of the time counseling the patient . Robin denied complaints of auditory hallucinations or symptoms of paranoia. She does not appear to be responding to internal stimuli . She continues to struggle with short-term memory recall. She slept 7.5 hours and denies depression symptoms review. She is currently taking the low dose of antipsychotic we are offering her ( Seroquel 50 at bedtime). Staff Report that she is been ambulatory and able to attend her own activities of daily living. She needs little redirection. She seems to be responding well to the structure. Current Medications Current Medications Warfarin Sodium 2.5 mg DAILY@17 ONCE PO Last administered on 10/23/16 17:38; Admin Dose 2.5 MG; Start 10/23/16 at 17:00; Stop 10/23/16 at 17:01; Status DC Warfarin Sodium 3 mg ONCE@17 ONCE PO Last administered on 10/24/16 17:36; Admin Dose 3 MG; Start 10/24/16 at 17:00; Stop 10/24/16 at 17:01; Status DC Mental Status Exam Vital Signs Vital Signs Date Time Temp Pulse Resp B/P Pulse Ox O2 Delivery O2 Flow Rate FiO2 10/25/16 10:52 36.2 108 16 106/52 Appearance: Neat/well groomed Attitude: Pleasant, Cooperative Behavior: No unusual behavior Affect: Well Modulated/Appropriate Mood: Euthymic Thought Process/Associations: Logical/Sequential, Goal Directed Speech Production: Normal Speech Rate: Normal Speech Articulation: Normal Thought Content: Appropriate Danger to Self/Suicidal Ideati: None Danger to Others: None Consciousness: Alert Orientation: Person, Place, Date, Situation Memory: Grossly Intact Estimate Intellectual Function: Average Attention/Concentration & Cogn: Impaired Insight: Limited Judgement: Limited Mental Health Plan Robin had improved significantly since I saw her 7 days ago. Her thought process is no longer Disorganized, and she is able to follow conversations. She denies suicidal ideation, intent, or plan. She does not want residential care or to apply to an assisted care center. She continues to have paranoia but these beliefs have been fixed since her first admission in March believing that her neighbor is video taping her. She continues to have this delusion today. She denies auditory hallucinations today. She is voluntary and and is currently refusing all antipsychotic medications. I am concerned that she will fail in an adult family home if she has no antipsychotic and the increased stimulation of an outpatient setting. I had been encouraged by her progress (she responded well to the structure and active adult engagement she receives here) and I believe the client medically cleared for discharge. We are waiting for potential disposition options. As soon as we have an appropriate disposition and follow-up appointments The patient is clear for discharge. Short of going to the [facility] process we are also working on a Medicaid application form and we will try to get her into an adult family home. The patient needs a protective payee as well as a guardian due to her progressing dementia. [place] AXIS I 1. Dementia, not otherwise specified. 2. Psychotic disorder, not otherwise specified. AXIS II Deferred. AXIS III 1. History of hypertension. 2. Chronic obstructive pulmonary disease. 3. Hyperlipidemia. 4. Deep venous thrombosis. AXIS IV psychosocial stressors moderate to severe with homelessness, poor insight, lack of social supports, and poor coping skills. AXIS V Global Assessment of Functioning current 40. Medications [place] 7.5/325 Metoprolol 25 mg twice daily Furosemide 20 mg daily Atorvastatin 5mg at bedtime Symbicort 2 puffs bid PRN Spiriva 18 g daily Aspirin 81 mg daily Singulair 10 mg nightly Cetirizine 5 mg at bedtime Combivent one spray 4 times a day as needed Quetiapine 25 milligrams daily and 50 mg at bedtime (patient refusing all but 25mg) Warfarin as per pharmacy PT/INR. Treatments 1. quetiapine 50 mg at bedtime appears to have decreased paranoia and is no longer expressing fixed delusional beliefs about people spying on her. 2. The patient will need to follow-up with her outpatient provider, [facility], regarding housing and may be eligible for additional services based on income. 3. The patient has been referred to Crisis Respite services and she can be offered placement there if no other housing can be found, if she refuses she will need be given resources to a residential. 4. The patient is encouraged to participate with groups and individual therapy. 5. The patient will meet with the treatment team on a daily basis to assess symptoms, side effects, and response to treatment. 6. we are working with Adult Protective Services and the state to come up with different options for disposition. 7. Patient ready for discharge when we have a disposition Adria Colvin MD Oct 25, 2016 12:07
--- NOTE | 2016-10-25 14:44 | PCM.PHAPRO ---
Progress RWP RWP SLF SLF SLF SLF rtm DFF DFF -Oct 18-Oct 19-Oct 20-Oct 21-Oct 22-Oct 23-Oct 24-Oct 25-Sep 2.41 2.35 2.39 2.88 3.07 2.22 1.96 1.86 1.81 -0.07 2.39 0.49 0.19 1.96 1.96 -0.1 -0.05 3 3 3MG 2MG 1MG 3MG 2.5 MG 3 MG 4 MG Will be increasing dose today to 4 mg with down trending INR. Based on notes, pt 's activity may be increasing leading to increased metabolism of warfarin. Pharmacy will continue to monitor. -Raulito Jade, PharmRaulito Parra Oct 25, 2016 14:44
--- NOTE | 2016-10-25 17:29 | NUR ---
[facility] Day Shift Pt affect and behavior unchanged from previous shifts. Pt maintained behavioral control throughout the shift. Pt affect appears mostly euthymic. Pt spends most of the shift sitting quietly/interacting with peers in the dining room, resting in her room, and participating in unit activities. Pt is pleasant and appropriate with staff and peers when active on the unit. Pt attended all group activities throughout the shift. Pt attended all meals and ate approx 100% of all meals.
--- NOTE | 2016-10-26 03:39 | NUR ---
Observations from [id number] Pt was upbeat this evening. She had two visitors and that seems to enhance her mood. She spent the remainder of the evening socializing with peers and was pleasant with staff when approached. Pt appeared asleep at 2245 and has remained asleep throughout the night. Pt has been monitored every 15 minutes as directed.
--- NOTE | 2016-10-26 05:29 | NUR ---
Nursing NOC Pt engaging in painting and socializing with peers during evening, friendly and cooperative, asleep all night. Q 15 min checks throughout night.
[2016-10-26] MEDS: Pantoprazole 40 mg ER24 Tablet PO SCH (08:00)
[2016-10-26] MEDS: Tiotropium 18mcg/Cap 5 Capsule Inhaler Kit INHALATION SCH (08:01)
[2016-10-26] MEDS: HYDROcodone-APAP 7.5-325 mg Tablet PO PRN ×2 (08:01→21:56)
[2016-10-26 08:15] VITALS: BP 122/74; PULSE 90; RESP 16
[2016-10-26 09:21] LABS: INR 2.01 ratio
--- NOTE | 2016-10-26 09:49 | PCM.PHAPRO ---
Progress WARFARIN MANAGEMENT PER PHARMACY SLF SLF SLF SLF rtm DFF DFF DFF -Oct 20-Oct 21-Oct 22-Oct 23-Oct 24-Oct 25-Oct 26-Sep 2.39 2.88 3.07 2.22 1.96 1.86 1.81 2.01 2.39 0.49 0.19 1.96 1.96 -0.1 -0.05 0.2 3MG 2MG 1MG 3MG 2.5 MG 3 MG 4 MG 4 MG With therapeutic INR, will continue with warfarin 4 mg today. Will consider decreasing if level raises significantly over next 1-2 days. Pharmacy will continue to monitor. Raulito Jade, PharmD Raulito Jade Oct 26, 2016 09:49
--- NOTE | 2016-10-26 12:40 | NUR ---
Nursing Day Shift- S- "I just hurt all over honey. My back is killing me." O- Pt. had slept 8 plus hours per report. She was awake and dressed for breakfast and eat well. She requested and received Hydrocodone for spinal and leg pain rated 8/10 at 0840. Her pain was 5/10 at 10AM. She endorsed ongoing auditory hallucinations. Pt. made her bed and socialized appropriately with peers. She denied depression or anxiety. Pt's Metoprol was held pending Hospitalist consult. A- Pt. continues to appear relaxed and at ease on the unit. She is independent with her ADL's, eating well, and sleeping well. P- Cont. BHTP. monitor effects Medication change today.
[2016-10-26 15:52] VITALS: BP 128/83; PULSE 102
--- NOTE | 2016-10-26 15:59 | NUR ---
Observations [id number] Pt was asleep upon start of shift. Pt attended Community Meeting, setting a goal to complete crafts and color. Pt spent the majority of the day in the common area with peers coloring. She attended all meals, eating 75% average. Pt went outside in the morning and attended group. She continues to have a difficult time hearing peers and staff. She was observed being pleasant with peers and staff. Pt was observed every 15 minutes of shift as directed.
--- NOTE | 2016-10-26 18:13 | NUR ---
Retail Operations Manager/Counselor: S: "I don't know why Al kept turning his radio up so loud last night." O: Patient slept 8 hours last night as per staff. She denies S/I and H/I. She reports still hearing Al (her neighbor) yelling that he is going to harm her when she gets out of the hospital. She denies visual hallucinations. Depression and anxiety is "pretty high." Patient stated that "AL has a thing with [facility] that he pays for and he said that he saw me taking showers and everything for months now!" A: Patient is cooperative, delusional, anxious, limited insight, limited judgment. P: Follow care plan, coordinate out-patient providers and Adult Family Home.
--- NOTE | 2016-10-26 18:39 | PCM.CHPMED ---
Subjective Date of Service: Oct 26, 2016 Provider requesting consult: Juan Ortiz MD Primary Physician: Admitting Physician: Adria Colvin MD Primary Care Physician: Obdulio Leos MD Attending Physician: Adria Colvin MD Chief Complaint: Chief Complaint: Hypotension with tachycardia in the setting of atrial fibrillation History of Present Illness: 81-year-old female with a history of atrial fibrillation currently is admitted on the psychiatric floor for suicidal ideations. The patient was seen and examined today because it was reported that the patient is having some chest pain and fluttering in her chest secondary to her atrial fibrillation. Patient also reports shortness of breath with exertion. Patient also complains of neck pain secondary to a previous "spinal fracture" which at this time is unsure as to if this is true as there are no events suggesting this and may be part of her current psychosis. Patient denies any fever, chills, nausea, vomiting, diarrhea. The patient has been hypotensive with a blood pressure as low as 90/ 40 and her metoprolol which has been rate control and has been held. Medicine was consulted for further recommendations for her blood pressure and rate controlling medication. Review of Systems: A 12 point review of systems was performed or attempted to be performed please see history of present illness for pertinent positives. 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, Unspecified Psychotic Disorder(recent onset); Paranoid delusions Hypertension COPD Diabetes GERD Hyperlipidemia Surgical History D&C Reports: Tubal ligation Home Medications Albuterol Aspirin 81 mg Symbicort 160 4.25 Lasix 20 mg daily Percocet 7.5 325 mg Levocetirizine Dihydrochloride Lovastatin 20 mg daily Metoprolol tartrate 25 mg daily Montelukast 10 mg daily Omeprazole 40 mg daily Seroquel 50 mg daily Spiriva Tizanidine 4mg Warfarin 6 mg Wednesday, Wednesday, Wednesday, Wednesday Allergies: Coded Allergies: Penicillins (Verified Allergy, Severe, 05/25/16) cefuroxime (Verified Allergy, Intermediate, unk, 05/25/16) naproxen (Verified Allergy, Intermediate, unk, 05/25/16) tetanus and diphtheria toxoids (Verified Allergy, Mild, SWELLING AND HIVES , 05/25/16) Sulfa (Sulfonamide Antibiotics) (Verified Allergy, Unknown, photosensitive , 05/25/16) Social History Hx Alcohol Use: NoHx Substance Use: No (former meth user)Hx Tobacco Use: No Smoking Status: Former Smoker Exam Vital Signs Vital Sign - Last Date Time Temp Pulse Resp B/P Pulse Ox O2 Delivery O2 Flow Rate FiO2 10/26/16 15:52 102 128/83 10/26/16 08:15 16 10/25/16 10:52 36.2 Additional Information: Physical Exam: GEN: Patient was awake, alert, responding appropriately to questions HEENT: PERRLA, EOMI, Neck soft supple, trachea midline, nomocephalic/atraumatic CV: Irregular rate Respiratory: CTAB, no wheezes, rales, rhonchi GI: +bowel sounds x4, soft, compressible, non TTP EXT: no c/c +2 pitting edema bilaterally Neuro: CN II-XII grossly intact Psych: mood and affect were appropriate Assessment & Plan Assessment 81-year-old female with A. fib and hypotension Atrial fibrillation with hypotension - Patient's blood pressures have been increasing to the normal levels as her last blood pressure was 122/74. It has been recommended that the patient decrease her metoprolol dose to 12.5 mg twice a day. They may continue to monitor the patient's blood pressure daily and hold medications if blood pressure is systolic less than 100 or diastolic less than 60. - Patient's warfarin should continue to be managed by pharmacy If the patient should return to having multiple hypotensive episodes where she feels that her heart rate is out of control and her pulse is chronically elevated please do not hesitate to consult us for further management. Thank you for the consult. Problems: Time spent Greater than 35 minutes Melody Garcia DO Oct 26, 2016 18:21
--- NOTE | 2016-10-26 19:00 | PCM.PNPSY ---
Subjective Date of Service Oct 26, 2016 Subjective Patient reported being upset about neighbor, Al, and others communicating via radio at night, "she was going to get it" when she was discharged. She reported it to be quite loud and was not aware of how this did not appear to be inconsistent with her profound hearing loss. Patient reports unable/unwilling to increase quetiapine due to sedation. Patient reports only having $3 although has $300 in [place] in belongings. Sleep: 8 hours Appetite: good Suicidal and homicidal ideation: denies Auditory hallucinations: as above Visual hallucinations: denies Other Psychotic Symptoms: poor insight Anxiety/Depression: endorses Current Medications Current Medications Metoprolol Tartrate 12.5 mg BID PO Last administered on 10/26/16 15:40; Admin Dose 12.5 MG; Start 10/26/16 at 14:50 Warfarin Sodium 4 mg ONCE@17 ONCE PO Last administered on 10/25/16 17:21; Admin Dose 4 MG; Start 10/25/16 at 17:00; Stop 10/25/16 at 17:01; Status DC Warfarin Sodium 4 mg ONCE@17 ONCE PO Last administered on 10/26/16 16:56; Admin Dose 4 MG; Start 10/26/16 at 17:00; Stop 10/26/16 at 17:01; Status DC Mental Status Exam Vital Signs Vital Signs Date Time Temp Pulse Resp B/P Pulse Ox O2 Delivery O2 Flow Rate FiO2 10/26/16 15:52 102 128/83 Appearance: Neat/well groomed Attitude: Cooperative, Guarded Behavior: Overtly anxious, Other (Irritable) Affect: Labile Mood: Irritable, Anxious Thought Process/Associations: Goal Directed, Tangential Speech Production: Normal Speech Rate: Pressured (mild) Speech Articulation: Normal Thought Content: Suspicious Danger to Self/Suicidal Ideati: None Danger to Others: None Delusions: Paranoid (Endorses) Hallucinations: Auditory (Endorses), Visual (Denies) Consciousness: Alert Orientation: Person, Place, Date, Situation Memory: Grossly Intact Estimate Intellectual Function: Average Attention/Concentration & Cogn: Impaired Insight: Limited Judgement: Limited Mental Health Plan The patient is an 81-year-old female with a history of delusional disorder and 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 The patient is currently experiencing auditory hallucinations and paranoia as noted above. She has currently only agreed to take a small dose of quetiapine which appears ineffective. The patient is currently homeless and is not appropriate for discharge to a half-way given her age, medical condition, and mobility issues. She is not currently willing to start [place] without discussing with her outpatient provider. The patient is resistant to accepting reality of situation regarding housing. The patient has been referred to crisis respite, but was not appropriate for placement. Patient may be able to be discharged to [facility]. [place] AXIS I 1. Dementia, not otherwise specified. 2. Psychotic disorder, not otherwise specified. AXIS II Deferred. AXIS III 1. History of hypertension. 2. Chronic obstructive pulmonary disease. 3. Hyperlipidemia. 4. Deep venous thrombosis. AXIS IV psychosocial stressors moderate to severe with homelessness, poor insight, lack of social supports, and poor coping skills. AXIS V Global Assessment of Functioning current 40. Medications [place] 7.5/325 Metoprolol 12.5 mg twice daily Furosemide 20 mg daily Atorvastatin 5mg at bedtime Pantoprazole 40mg po daily Advair 250-50 bid prn Spiriva 18 g daily Aspirin 81 mg daily Singulair 10 mg nightly Cetirizine 5 mg at bedtime Combivent one spray 4 times a day as needed Quetiapine 50 mg at bedtime Warfarin as per pharmacy PT/INR. Treatments 1. Will switch quetiapine to risperdal 0.5mg po nightly due to ongoing hallucinations and titrate as needed. 2. The patient will need to follow-up with her outpatient provider, Stevie Garcia, on discharge. 3. The patient has been referred to Crisis Respite services but is not eligible , but may be able to go to [facility]. 4. The patient is encouraged to participate with groups and individual therapy. 5. The patient will meet with the treatment team on a daily basis to assess symptoms, side effects, and response to treatment. 6. Case closed by Adult Protective Services, but [facility] still working with patient on disposition. 7. Patient ready for discharge when we have a disposition and patient more psychiatrically stable. Sanjay Camejo MD Oct 26, 2016 19:00
--- NOTE | 2016-10-26 19:06 | NUR ---
NURSING NOTE [id number] Mood= "well I keep hearing voices, they keep changing my meds and my heart pills-- why are they doing that!?" Affect= mostly pleasant, joking and social this shift. Did become tearful and anxious in conversation w/her visitor amy when he informed her she hadn't yet received the mail she's been waiting for. Behavior= visible in the dining room, socializing w/peers, coloring, watching TV, med compliant. Thought processes= delusional regarding the activities of her former neighbors, endorsing AH, denies VH. Denies depression and SI amy.
[2016-10-26] MEDS ORDERED: risperiDONE 1 mg Tablet PO SCH (21:00)
[2016-10-26] MEDS: Albuterol-Ipratropium 120 Spray 4 Gm Inhaler INHALATION PRN (21:56)
[2016-10-26 22:18] VITALS: BP 132/86; PULSE 98
--- NOTE | 2016-10-27 01:13 | NUR ---
Observations 1900 to 0700 Pt had a visitor last night. Pt was out in the coloring for most of the night. Pt was very social last night as usual. Pt visited with other Pt's until she went to bed. Pt first appeared asleep at 22:30 and was observed every 15 minutes through the night as directed.
[2016-10-27] MEDS: HYDROcodone-APAP 7.5-325 mg Tablet PO PRN ×3 (04:36→21:03)
--- NOTE | 2016-10-27 05:35 | NUR ---
Nursing, Nights, 11-7 s/o- has appeared to sleep 2230 during q 15 minute assessments. a- no apparent distress. p- monitor behavior/emotional state, quality, times and amount of sleep, use and effect of medication.
[2016-10-27] MEDS: Tiotropium 18mcg/Cap 5 Capsule Inhaler Kit INHALATION SCH (08:03)
[2016-10-27] MEDS: Pantoprazole 40 mg ER24 Tablet PO SCH (08:52)
[2016-10-27 08:58] LABS: INR 2.65 ratio
[2016-10-27 09:00] VITALS: BP 109/76; PULSE 113; RESP 17
--- NOTE | 2016-10-27 12:23 | NUR ---
Nursing Day Shift- S- "Honey I left some milk over there to place back in the frig." O- Pt. had decreased sleep last PM of 5.5 hours. She was awake at the start of the day shift and sitting in the DR coloring with several female peers. She reported decreased sleep. Pt. appeared unable to hear multiple questions from staff accurately due to having hearing loss. Pt. remained in the group areas until 1230, when she went to her room to rest. A-Behavior an mood unchanged. P- Pt. agreed to increased medication dose at HS today per MD today. Cont. bHTP
--- NOTE | 2016-10-27 13:51 | PCM.PNMED ---
Subjective Date of Service Oct 27, 2016 Subjective Patient was examined at bedside today. Patient denies any chest pain, shortness of breath, nausea, vomiting, diarrhea. Patient states that her palpitations as improved significantly since restarting the metoprolol. Exam Vital Signs Vital Sign - Last Date Time Temp Pulse Resp B/P Pulse Ox O2 Delivery O2 Flow Rate FiO2 10/27/16 09:00 35.9 113 17 109/76 Exam Physical Exam: GEN: Patient was awake, alert, responding appropriately to questions HEENT: PERRLA, EOMI, Neck soft supple, trachea midline, nomocephalic/atraumatic CV: +S1/S2, irregular, Respiratory: CTAB, no wheezes, rales, rhonchi GI: +bowel sounds x4, soft, compressible, non TTP EXT: no c/c/e Neuro: CN II-XII grossly intact Psych: mood and affect were appropriate IVs and Medications Medications Reviewed: Medications were reviewed in detail Medications Current Medications Metoprolol Tartrate 12.5 mg BID PO Last administered on 10/27/16 08:53; Admin Dose 12.5 MG; Start 10/26/16 at 14:50 Risperidone 0.5 mg HS PO Last administered on 10/26/16 21:57; Admin Dose 0.5 MG ; Start 10/26/16 at 21:00 Assessment & Plan 81-year-old female with A. fib and hypotension Atrial fibrillation with hypotension - Patient's blood pressures have been increasing to the normal levels as her last blood pressure was 109/76. It has been recommended that the patient decrease her metoprolol dose to 12.5 mg twice a day. Continue to monitor the patient's blood pressure daily and hold medications if blood pressure is systolic less than 100 or diastolic less than 60. - Patient's warfarin should continue to be managed by pharmacy Disposition: Patient seems to be responding well to the medication. The patient has hypotension has now resolved and the patient's blood pressures have been in the 100s over 70s even while still on 12.5 mg of metoprolol twice a day. It is the recommendation to maintain 12.5 mg twice a day if the patient should have further hypotensive episodes while on metoprolol please do not hesitate to reconsult us. Signing off patient. Melody Garcia DO Oct 27, 2016 13:51
--- NOTE | 2016-10-27 16:05 | PCM.PNPSY ---
Subjective Date of Service Oct 27, 2016 Subjective The patient reports that she only slept from 9 to 3:30 and feels that this was due to only having one half of a milligram of risperidone. The patient reports that auditory hallucinations were loud last night and that she would like to increase the dose of risperidone. The patient was seen by medical who recommended compression hoses for lower extremity edema. The patient has been assessed for housing and we are awaiting results of the assessment. Sleep: 7.5 hours Appetite: Good Suicidal and homicidal ideation: Denies Auditory hallucinations: As above Visual hallucinations: Denies Other Psychotic Symptoms: Denies Anxiety/Depression: Moderate Current Medications Current Medications Metoprolol Tartrate 12.5 mg BID PO Last administered on 10/27/16 08:53; Admin Dose 12.5 MG; Start 10/26/16 at 14:50 Risperidone 0.5 mg HS PO Last administered on 10/26/16 21:57; Admin Dose 0.5 MG ; Start 10/26/16 at 21:00; Stop 10/27/16 at 15:01; Status DC Warfarin Sodium 4 mg ONCE@17 ONCE PO Last administered on 10/25/16 17:21; Admin Dose 4 MG; Start 10/25/16 at 17:00; Stop 10/25/16 at 17:01; Status DC Warfarin Sodium 4 mg ONCE@17 ONCE PO Last administered on 10/26/16 16:56; Admin Dose 4 MG; Start 10/26/16 at 17:00; Stop 10/26/16 at 17:01; Status DC Mental Status Exam Vital Signs Vital Signs Date Time Temp Pulse Resp B/P Pulse Ox O2 Delivery O2 Flow Rate FiO2 10/27/16 09:00 35.9 113 17 109/76 Appearance: Neat/well groomed Attitude: Pleasant, Cooperative Behavior: Overtly anxious Affect: Well Modulated/Appropriate Mood: Anxious Thought Process/Associations: Logical/Sequential, Goal Directed, Tangential Speech Production: Normal Speech Rate: Normal Speech Articulation: Normal Thought Content: Suspicious Danger to Self/Suicidal Ideati: None Danger to Others: None Delusions: Paranoid (Endorses) Hallucinations: Auditory (Endorses), Visual (Denies) Consciousness: Alert Orientation: Person, Place, Date, Situation Memory: Grossly Intact Estimate Intellectual Function: Average Attention/Concentration & Cogn: Impaired Insight: Limited Judgement: Limited Mental Health Plan The patient is an 81-year-old female with a history of delusional disorder and 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 The patient is currently experiencing auditory hallucinations and paranoia as noted above. She has currently only agreed to take a small dose of quetiapine which appears ineffective. The patient is currently homeless and is not appropriate for discharge to a halfway given her age, medical condition, and mobility issues. She is not currently willing to start Namenda without discussing with her outpatient provider. The patient is resistant to accepting reality of situation regarding housing and as of today was still requesting her own home not realizing the limited resources. It appears that the patient may have housing available on an emergent basis depending on the assessment. The patient appears to be tolerating risperidone better than quetiapine and is requesting an increase in the evening dose. 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 AXIS II Deferred. AXIS III 1. History of hypertension. 2. Chronic obstructive pulmonary disease. 3. Hyperlipidemia. 4. Deep venous thrombosis. AXIS IV psychosocial stressors moderate to severe with homelessness, poor insight, lack of social supports, and poor coping skills. AXIS V Global Assessment of Functioning current 40. Medications [place] 7.5/325 Metoprolol 12.5 mg twice daily Furosemide 20 mg daily Atorvastatin 5mg at bedtime Pantoprazole 40mg po daily Advair 250-50 bid prn Spiriva 18 g daily Aspirin 81 mg daily Singulair 10 mg nightly Cetirizine 5 mg at bedtime Combivent one spray 4 times a day as needed Risperidone 0.5 mg at bedtime Warfarin as per pharmacy PT/INR. Treatments 1. Increase risperidone to 1 mg nightly due to ongoing hallucinations and titrate as needed. 2. The patient is awaiting the results of her outpatient assessment by home and community services and may have emergency housing available soon. 3. The patient has been referred to Crisis Respite services but is not eligible , but may be able to go to [facility]. 4. The patient is encouraged to participate with groups and individual therapy. 5. The patient will meet with the treatment team on a daily basis to assess symptoms, side effects, and response to treatment. 6. Case closed by Adult Protective Services, but [facility] still working with patient on disposition. 7. Patient ready for discharge when we have a disposition and patient more psychiatrically stable. 8. Referred to occupational therapy for knee high NICOLAS hose. Sanjay Camejo MD Oct 27, 2016 16:05
--- NOTE | 2016-10-27 19:05 | NUR ---
Nursing Note Carola Shift- Pt up for part of the shift socializing and watching tv. Pt appears to be very [place] A[place] very loud voice during communication in milieu. Pt compliant with meds and cooperative with staff. Pt had friends in to visit after dinner. Pt had been independent with all ADLs and eating all meals. Q15 min safety checks per protocol, [facility] sleep, safety, behavior
--- NOTE | 2016-10-27 19:08 | NUR ---
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 She denies S/I and H/I. She reports still hearing voices that woke her up last night. She denies visual hallucinations. Depression and anxiety are "moderate." Patient was assessed by [facility] today and will be given an update tomorrow. Patient is authorized additional in-patient days with extension request due , via [employer]. A: Patient is cooperative, tangential, anxious, suspicious, limited insight, limited judgment. P: Follow care plan, coordinate with out-patient providers and [facility].
[2016-10-27] MEDS: risperiDONE 1 mg Tablet PO SCH (20:57)
--- NOTE | 2016-10-28 01:25 | NUR ---
Observations 1900 to 0700 Pt had two visitors last night. Pt was out in the DR coloring for most of the night. Pt visited with other Pt's until she went to bed. Pt first appeared asleep at 22:15 and was observed every 15 minutes through the night as directed.
--- NOTE | 2016-10-28 05:40 | NUR ---
Nursing 11p-7a Adequate sleep through the night with no noted distress or awakening. total sleep 7+ hours.
[2016-10-28 08:19] LABS: INR 2.64 ratio
[2016-10-28] MEDS: Tiotropium 18mcg/Cap 5 Capsule Inhaler Kit INHALATION SCH (08:29)
[2016-10-28] MEDS: HYDROcodone-APAP 7.5-325 mg Tablet PO PRN ×3 (08:31→21:52)
[2016-10-28] MEDS: Pantoprazole 40 mg ER24 Tablet PO SCH (08:31)
--- NOTE | 2016-10-28 10:17 | NUR ---
Evaluation completed. Please go to "Notes" then click on "Assessments and Notes" (bottom left corner of screen). Then select appropriate discipline tab on top of screen.
--- NOTE | 2016-10-28 10:59 | NUR ---
Nursing Day Shift- S- "That sock is squeezing me!" O- Pt. had slept 8 plus hours per report. She was awake for breakfast, and eat well. Pt. reported delayed onset of sleep but good overall sleep. She was consulted on for OT. They fitted her for compression socks, and helped her apply them. Pt. continues to be social and active on the unit with a lout tone. A- Behavior unchanged. P- Cont. TP.
[2016-10-28 15:18] VITALS: BP 121/78; PULSE 135; RESP 16
[2016-10-28 15:20] VITALS: PULSE 86
--- NOTE | 2016-10-28 17:58 | NUR ---
NURS evening shift S "I don't know why he won't just leave me alone" O Pt endorses AH, moderate feelings of depression/anxiety. Frustrated by voices telling her they are "coming for her" once they leave. Removed compression socks form [id number]. Compression socks currently on. A Pleasant, calm, and cooperative. AH are major sources of distress. P Continue with treatment plan and continue to monitor.
--- NOTE | 2016-10-28 18:10 | NUR ---
[facility] Day Shift Pt affect and behavior unchanged from previous shifts. Pt maintained behavioral control throughout the shift. Pt affect appears mostly euthymic. Pt spends most of the shift sitting quietly/interacting with peers in the dining room, resting in her room, and participating in unit activities. Pt is pleasant and appropriate with staff and peers when active on the unit. Pt attended all group activities throughout the shift. Pt attended all meals and ate approx 100% of all meals.
--- NOTE | 2016-10-28 19:26 | PCM.PNPSY ---
Subjective Date of Service Oct 28, 2016 Subjective The patient reports having some pain due to the mattresses but already has a foam mattress pad. She reports that her hallucinations are better and they are not quite as loud. She reports that when she is busy with projects she does not pay attention to them. The patient was seen by the occupational therapist today and was measured for compression stockings. The patient denies side effects from her current medications. 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 Sleep: 7.5 hours Appetite: So-so Suicidal and homicidal ideation: Denies Auditory hallucinations: As above Visual hallucinations: Denies Other Psychotic Symptoms: N/A Anxiety: Denies Depression: "Sometimes a little bit." Current Medications Current Medications Risperidone 0.5 mg HS PO Last administered on 10/26/16 21:57; Admin Dose 0.5 MG ; Start 10/26/16 at 21:00; Stop 10/27/16 at 15:01; Status DC Risperidone 1 mg HS PO Last administered on 10/27/16 20:57; Admin Dose 1 MG; Start 10/27/16 at 21:00 Warfarin Sodium 2 mg DAILY@17 ONCE PO Last administered on 10/27/16 18:57; Admin Dose 2 MG; Start 10/27/16 at 17:00; Stop 10/27/16 at 17:01; Status DC Warfarin Sodium 2 mg DAILY@17 ONCE PO Last administered on 10/28/16 16:48; Admin Dose 2 MG; Start 10/28/16 at 17:00; Stop 10/28/16 at 17:01; Status DC Mental Status Exam Vital Signs Vital Signs Date Time Temp Pulse Resp B/P Pulse Ox O2 Delivery O2 Flow Rate FiO2 10/28/16 15:20 86 10/28/16 15:18 35.9 135 16 121/78 Appearance: Neat/well groomed Attitude: Pleasant, Cooperative Behavior: Overtly anxious Affect: Well Modulated/Appropriate Mood: Anxious Thought Process/Associations: Logical/Sequential, Goal Directed, Tangential Speech Production: Normal Speech Rate: Normal Speech Articulation: Normal Thought Content: Suspicious Danger to Self/Suicidal Ideati: None Danger to Others: None Delusions: Paranoid (Endorses) Hallucinations: Auditory (Endorses), Visual (Denies) Consciousness: Alert Orientation: Person, Place, Date, Situation Memory: Grossly Intact Estimate Intellectual Function: Average Attention/Concentration & Cogn: Impaired Insight: Limited Judgement: Limited Mental Health Plan The patient is an 81-year-old female with a history of delusional disorder and 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 The patient is currently experiencing auditory hallucinations and paranoia as noted above. The patient appears to be tolerating risperidone with a reduction in her auditory hallucinations and paranoia. The patient is currently homeless and is not appropriate for discharge to a snf given her age, medical condition, and mobility issues. She is not currently willing to start Namenda to address her vascular dementia. The patient was more reality based today when discussing her housing options. It appears that the patient may have housing available on an emergent basis depending on the home and community services assessment. 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 AXIS II Deferred. AXIS III 1. History of hypertension. 2. Chronic obstructive pulmonary disease. 3. Hyperlipidemia. 4. Deep venous thrombosis. AXIS IV psychosocial stressors moderate to severe with homelessness, poor insight, lack of social supports, and poor coping skills. AXIS V Global Assessment of Functioning current 35. Medications [place] 7.5/325 Metoprolol 12.5 mg twice daily Furosemide 20 mg daily Atorvastatin 5mg at bedtime Pantoprazole 40mg po daily Advair 250-50 bid prn Spiriva 18 g daily Aspirin 81 mg daily Singulair 10 mg nightly Cetirizine 5 mg at bedtime Combivent one spray 4 times a day as needed Risperidone 1 mg at bedtime Warfarin as per pharmacy PT/INR. Treatments 1. Continue risperidone 1 mg nightly due to ongoing hallucinations and titrate as needed. 2. The patient is awaiting the results of her outpatient assessment by home and community services and may have emergency housing available soon. 3. The patient has been referred to Crisis Respite services but is not eligible , but may be able to go to [facility]. 4. The patient is encouraged to participate with groups and individual therapy. 5. The patient will meet with the treatment team on a daily basis to assess symptoms, side effects, and response to treatment. 6. Case closed by Adult Protective Services, but [facility] still working with patient on disposition. 7. Patient ready for discharge when we have a disposition and patient more psychiatrically stable. 8. Patient assessed by occupational therapy for compression stockings to be delivered. Sanjay Camejo MD Oct 28, 2016 19:26
[2016-10-28] MEDS: risperiDONE 1 mg Tablet PO SCH (21:53)
--- NOTE | 2016-10-29 04:58 | NUR ---
Observations 1900 to 0700 Pt had a visitor again last night. Pt was out in the DR coloring for most of the night. Pt visited with other Pt's until she went to bed. Pt first appeared asleep at 22:00 and was observed every 15 minutes through the night as directed.
[2016-10-29 08:17] LABS: INR 2.34 ratio
[2016-10-29] MEDS: Pantoprazole 40 mg ER24 Tablet PO SCH (09:19)
[2016-10-29] MEDS: HYDROcodone-APAP 7.5-325 mg Tablet PO PRN ×2 (09:19→21:09)
[2016-10-29] MEDS: Tiotropium 18mcg/Cap 5 Capsule Inhaler Kit INHALATION SCH (09:19)
[2016-10-29 09:37] VITALS: BP 114/79; PULSE 116
[2016-10-29 11:46] VITALS: BP 105/75; RESP 16
[2016-10-29] MEDS: Albuterol-Ipratropium 120 Spray 4 Gm Inhaler INHALATION PRN (12:00)
[2016-10-29 12:35] VITALS: PULSE 99
--- NOTE | 2016-10-29 14:59 | NUR ---
Utilization Review: Spoke with Pauly Pino contact from [facility] @ [phone]. Current medication list and diagnosis were faxed to [phone]. Pauly verified fax was received. Pauly stated may not have placement until sometime next week. Mindy Hodge RN
--- NOTE | 2016-10-29 17:05 | PCM.PNPSY ---
Subjective Date of Service Oct 29, 2016 Subjective The patient reports having a headache today which "lasted all night." She reported having auditory hallucinations last night "they were talking all night. " The patient denies having any hallucinations today. The patient reported some problem with her blood pressure although she was normotensive according to her vital signs. The patient denies side effects from her current medications although it is possible her headache is from risperidone. She reports overall that appears to be getting better compared to last night. Sleep: 7.765 hours Appetite: Good, still having some complaints about the food. Suicidal and homicidal ideation: Denies Auditory hallucinations: As above Visual hallucinations: Denies Other Psychotic Symptoms: N/A Anxiety: Denies Depression: None reported Current Medications Current Medications Risperidone 1 mg HS PO Last administered on 10/28/16 21:53; Admin Dose 1 MG; Start 10/27/16 at 21:00 Warfarin Sodium 2 mg DAILY@17 ONCE PO Last administered on 10/28/16 16:48; Admin Dose 2 MG; Start 10/28/16 at 17:00; Stop 10/28/16 at 17:01; Status DC Mental Status Exam Vital Signs Vital Signs Date Time Temp Pulse Resp B/P Pulse Ox O2 Delivery O2 Flow Rate FiO2 10/29/16 12:35 99 10/29/16 11:46 36.0 16 105/75 10/29/16 09:37 116 114/79 Appearance: Neat/well groomed Attitude: Pleasant, Cooperative Behavior: Overtly anxious Affect: Well Modulated/Appropriate Mood: Anxious Thought Process/Associations: Logical/Sequential, Goal Directed, Tangential Speech Production: Normal Speech Rate: Normal Speech Articulation: Normal Thought Content: Suspicious Danger to Self/Suicidal Ideati: None Danger to Others: None Delusions: Paranoid (Endorses) Hallucinations: Auditory (Endorses), Visual (Denies) Consciousness: Alert Orientation: Person, Place, Date, Situation Memory: Grossly Intact Estimate Intellectual Function: Average Attention/Concentration & Cogn: Impaired Insight: Limited Judgement: Limited Mental Health Plan The patient is an 81-year-old female with a history of delusional disorder and 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 The patient is currently experiencing auditory hallucinations and paranoia as noted above. The patient appears to be tolerating risperidone with a reduction in her auditory hallucinations and paranoia, however she had a difficult night with increased hallucinations but decreased during the day. She is not currently willing to start Namenda to address her vascular dementia. We discussed housing options with the patient and that we are still waiting the assessment from home and community services. We also discussed the possibility of referring her to [facility] and the patient was agreeable. 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 AXIS II Deferred. AXIS III 1. History of hypertension. 2. Chronic obstructive pulmonary disease. 3. Hyperlipidemia. 4. Deep venous thrombosis. AXIS IV psychosocial stressors moderate to severe with homelessness, poor insight, lack of social supports, and poor coping skills. AXIS V Global Assessment of Functioning current 35. Medications [place] 7.5/325 Metoprolol 12.5 mg twice daily Furosemide 20 mg daily Atorvastatin 5mg at bedtime Pantoprazole 40mg po daily Advair 250-50 bid prn Spiriva 18 g daily Aspirin 81 mg daily Singulair 10 mg nightly Cetirizine 5 mg at bedtime Combivent one spray 4 times a day as needed Risperidone 1 mg at bedtime Warfarin as per pharmacy PT/INR. Treatments 1. Continue risperidone 1 mg nightly due to ongoing hallucinations and titrate as needed. If headache persists, will reduce to 0.5 mg 2. The patient is awaiting the results of her outpatient assessment by home and community services and may have emergency housing early next week. 3. The patient has been referred to [facility] housing. 4. The patient is encouraged to participate with groups and individual therapy. 5. The patient will meet with the treatment team on a daily basis to assess symptoms, side effects, and response to treatment. 6. Case closed by Adult Protective Services, but [facility] still working with patient on disposition. 7. Patient ready for discharge when we have a disposition and patient more psychiatrically stable. 8. Patient assessed by occupational therapy for compression stockings to be delivered. Sanjay Camejo MD Oct 29, 2016 17:05
--- NOTE | 2016-10-29 17:43 | NUR ---
Car Starter/Counselor: S: "I was really sick this morning, my stomach is feeling a little funny." O: Patient slept 7.75 hours last night as per staff. She denies S/I and H/I. She reports still hearing voices and "they were talking all night." She denies visual hallucinations. Depression, none reported. Anxiety is 0/10. Patient was assessed by [facility] and may not have services until next week. This loan underwriter faxed a referral to [facility], patient HAS NOT been informed of this. Patient is authorized additional in-patient days with extension request due 11/02/16 via [employer]. A: Patient is cooperative, tangential, anxious, paranoids, limited insight, limited judgment. P: Follow care plan, coordinate with out-patient providers, [facility], and [facility]. Addendum: 10/29/16 at 1833 by DIOMEDES ADAN [facility] authorized in-patient stay until 11/02/16, with extension request due 11/02/16.
--- NOTE | 2016-10-29 18:41 | NUR ---
NURS note [id number] shift Orientation:x3 Mood: When asked to rate depression/anxiety 0-10, said "none of that" Affect: Pleasant, calm, cooperative Behavior: Denied SI, AH, and VH. Pt in bed resting much of morning, up in day room, patio in afternoon. PRN/Nursing Note: PRN Linh at 0919, Combivent 1200. Wheezing and complaining of SOBin AM
[2016-10-29 18:50] VITALS: BP 105/75; PULSE 120; RESP 16
[2016-10-29] MEDS: risperiDONE 1 mg Tablet PO SCH (21:10)
--- NOTE | 2016-10-30 05:28 | NUR ---
nursing, nights, 11-7 s/o- has appeared to sleep after 0015 during q 15 minute assessments. a- no apparent distress. p- monitor behavior/emotional state, quality, times and amount of sleep, use and effect of medication. fuentes
--- NOTE | 2016-10-30 05:38 | NUR ---
Pt out on unit this evening enjoyed coloring and interacting. Asleep 2015. Pt observed every 15 minutes as ordered.
[2016-10-30] MEDS: Pantoprazole 40 mg ER24 Tablet PO SCH (08:23)
[2016-10-30] MEDS: HYDROcodone-APAP 7.5-325 mg Tablet PO PRN ×2 (08:24→20:52)
[2016-10-30] MEDS: Tiotropium 18mcg/Cap 5 Capsule Inhaler Kit INHALATION SCH (08:25)
[2016-10-30 08:35] LABS: INR 2.51 ratio
[2016-10-30 09:15] VITALS: BP 105/65; PULSE 98; RESP 16
--- NOTE | 2016-10-30 11:53 | NUR ---
NURS notes day shift Orientation:x4 Mood: "I'm a little stressed." Rates depression 0/10, anxiety "a little." Affect: Blunted. Behavior: Pleasant, calm, and cooperative. Pt up in day room coloring most or morning. Thought processes: Endorses AH, her 's voice told her "to do things" and that I'm "lousy at clipping toenails." Somewhat tangential. Denies VH, SI, HI. PRN/Nursing Note: Clipped toenails on right foot. Assessed left foot, toenails thick and yellowed, not ingrown. Recommend monitoring. PRN Linh at 0824. Compression socks on.
--- NOTE | 2016-10-30 17:41 | PCM.PNPSY ---
Subjective Date of Service Oct 30, 2016 Subjective The patient reports that she was feeling congested yesterday but did somewhat better today." She reports her headache is somewhat improved today. She states that the auditory hallucinations are somewhat improved today as they "took the beeper away". The patient denies side effects from her current medications although it is possible her headache is from risperidone, but could also be coryzal symptoms. The patient was offered a bed at [facility] and declined, "do I have to go there?" Sleep: 8.75 hours Appetite: Reports decreased due to cold, still having some complaints about the food. Suicidal and homicidal ideation: Denies Auditory hallucinations: As above Visual hallucinations: Denies Other Psychotic Symptoms: N/A Anxiety: Denies Depression: "Not too bad, upset when people argue." Current Medications Current Medications Warfarin Sodium 3 mg DAILY@17 ONCE PO Last administered on 10/30/16 17:11; Admin Dose 3 MG; Start 10/30/16 at 17:00; Stop 10/30/16 at 17:01; Status DC Warfarin Sodium 4 mg DAILY@17 ONCE PO Last administered on 10/29/16 17:48; Admin Dose 4 MG; Start 10/29/16 at 17:00; Stop 10/29/16 at 17:01; Status DC Mental Status Exam Appearance: Neat/well groomed Attitude: Pleasant, Cooperative Behavior: Overtly anxious Affect: Well Modulated/Appropriate Mood: Anxious Thought Process/Associations: Logical/Sequential, Goal Directed, Tangential Speech Production: Normal Speech Rate: Normal Speech Articulation: Normal Thought Content: Suspicious Danger to Self/Suicidal Ideati: None Danger to Others: None Delusions: Paranoid (Endorses) Hallucinations: Auditory (Endorses), Visual (Denies) Consciousness: Alert Orientation: Person, Place, Date, Situation Memory: Grossly Intact Estimate Intellectual Function: Average Attention/Concentration & Cogn: Impaired Insight: Limited Judgement: Limited Mental Health Plan The patient is an 81-year-old female with a history of delusional disorder and 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 The patient is currently experiencing auditory hallucinations and paranoia as noted above. The patient appears to be tolerating risperidone with a reduction in her auditory hallucinations and paranoia. She is not currently willing to start Namenda to address her vascular dementia. We discussed housing options with the patient and that we are still waiting the assessment from home and community services. She was accepted at [facility] but did not wish to go when so many have difficulty with placement or will be housed at the group home. 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 AXIS II Deferred. AXIS III 1. History of hypertension. 2. Chronic obstructive pulmonary disease. 3. Hyperlipidemia. 4. Deep venous thrombosis. AXIS IV psychosocial stressors moderate to severe with homelessness, poor insight, lack of social supports, and poor coping skills. AXIS V Global Assessment of Functioning current 35. Medications [place] 7.5/325 Metoprolol 12.5 mg twice daily Furosemide 20 mg daily Atorvastatin 5mg at bedtime Pantoprazole 40mg po daily Advair 250-50 bid prn Spiriva 18 g daily Aspirin 81 mg daily Singulair 10 mg nightly Cetirizine 5 mg at bedtime Combivent one spray 4 times a day as needed Risperidone 1 mg at bedtime Warfarin as per pharmacy PT/INR. Treatments 1. Continue risperidone 1 mg nightly due to ongoing hallucinations and titrate as needed. If headache persists, will reduce to 0.5 mg 2. The patient is awaiting the results of her outpatient assessment by home and community services and may have emergency housing early next week. 3. The patient has declined housing at [facility] housing. 4. The patient is encouraged to participate with groups and individual therapy. 5. The patient will meet with the treatment team on a daily basis to assess symptoms, side effects, and response to treatment. 6. Case closed by Adult Protective Services, but Home and Community Services still working with patient on disposition. 7. Patient ready for discharge when we have a disposition and patient more psychiatrically stable. Sanjay Camejo MD Oct 30, 2016 17:41
--- NOTE | 2016-10-30 17:56 | NUR ---
Rn Baby/Counselor: S: "I really don't have an appetite and I don't know why." O: Patient slept 8.75 hours last night as per staff. She denies S/I and H/I. She reports that she is not sure if she is still hearing voices, but "they said that they took the beeper out." She denies visual hallucinations. Depression is "not too bad." Anxiety is 0/10. This verse writer faxed a referral to [facility], patient was accepted to [facility], but patient stated that she DOES NOT want to go to [facility] ([facility]). This verse writer informed [facility] intake team that patient declined coming to [facility]. A: Patient is cooperative, tangential, anxious, paranoid, limited insight, poor judgment. P: Follow care plan, coordinate with out-patient providers, Home and Community Services, and Geriatric Transitions Services.
--- NOTE | 2016-10-30 17:59 | NUR ---
[facility] Day Shift Pt affect and behavior unchanged from previous shifts. Pt maintained behavioral control throughout the shift. Pt affect appears mostly euthymic. Pt spends most of the shift sitting quietly/interacting with peers in the dining room, resting in her room, and participating in unit activities. Pt is pleasant and appropriate with staff and peers when active on the unit. Pt attended community meeting in the AM and all group activities throughout the shift. Pt attended all meals and ate approx 100% of all meals.
--- NOTE | 2016-10-30 19:56 | NUR ---
Nurses Note Evening Patient has remained in the dining room socializing with peers,enjoying a visit from a male friend and later a female friend. Her appetite has been fair,ADL's within normal limits. Patients' mood has been generally upbeat and relaxed,demanding at times. She continues to vacillate regarding the discharge options presented to her. Will continue to encourage improved insight into current discharge issues,continued medication compliance. Addendum: 10/30/16 at 2025 by EBONY FORD RN Amended: Links added.
[2016-10-30] MEDS: risperiDONE 1 mg Tablet PO SCH (20:46)
--- NOTE | 2016-10-31 04:57 | NUR ---
Pt out on unit this evening enjoyed coloring and interacting. Asleep 9965. Pt observed every 15 minutes as ordered.
--- NOTE | 2016-10-31 05:37 | NUR ---
nursing, nights, 11-7 s/o- has appeared to sleep after 2244 during q 15 minute assessments. a- no apparent distress. p- monitor behavior/emotional state, quality, times and amount of sleep, use and effect of medication. fuentes
[2016-10-31 07:57] LABS: INR 3.06 ratio
--- NOTE | 2016-10-31 08:38 | PCM.PHAPRO ---
Progress Warfarin Management by Pharmacy: -inr slightly supratherapeutic today at 3.06. will reduce dose to warfarin 1mg this evening rather than holding to avoid a sudden drop in inr in a few days Karoline Carmona [facility] Oct 31, 2016 08:38
[2016-10-31 08:40] VITALS: BP 107/68; PULSE 142; RESP 18
[2016-10-31] MEDS: Tiotropium 18mcg/Cap 5 Capsule Inhaler Kit INHALATION SCH (09:50)
[2016-10-31] MEDS: Pantoprazole 40 mg ER24 Tablet PO SCH (09:52)
[2016-10-31] MEDS: HYDROcodone-APAP 7.5-325 mg Tablet PO PRN ×2 (09:53→20:50)
--- NOTE | 2016-10-31 12:42 | NUR ---
day shift nursing note-Depression/Anxiety/Nutrition/Pain S/O-"I need my pain med right away!" "I think I have diarrhea...can I have one of those pink pads?" Pt. has been pleasant with staff and peers. She acts as a mother hen at times telling the other patients to wash their clothes, shower or that lunch is ready. She denies depression, SI, anxiety or any hallucinations. She jumps from subject to subject making it hard to keep her on track. She has been busy washing her clothes with assistance and doing crafts. her room is messy and disheveled. She is groomed and dressed. Her appetite is fair. She stated she slept ok last night. A-Blunted affect. Lck of insight. P-Monitor for safety per protocol. Assess efficacy of meds to manage target symptoms. Encourage boundaries and use of better coping skills.
--- NOTE | 2016-10-31 13:17 | PCM.PNPSY ---
Subjective Date of Service Oct 31, 2016 Subjective The patient reports that her headache is somewhat improved today however she feels that she is still coming down with some sort of cold or flu bug as she had diarrhea overnight. The patient reported that she heard the radio at night "until I took the pills." She reports she then went to sleep. She requests that she have the risperidone slightly earlier in the evening to address her auditory hallucinations/"radio." The patient denies side effects from her current medications although it is possible her headache is from risperidone, but could also be coryzal symptoms. Sleep: 9 hours Appetite: Reports decreased due to stomach upset Suicidal and homicidal ideation: Denies Auditory hallucinations: As above Visual hallucinations: Denies Other Psychotic Symptoms: N/A Anxiety: Denies Depression: "Of course I am sad, I worry about my daughter." Current Medications Current Medications Warfarin Sodium 3 mg DAILY@17 ONCE PO Last administered on 10/30/16 17:11; Admin Dose 3 MG; Start 10/30/16 at 17:00; Stop 10/30/16 at 17:01; Status DC Warfarin Sodium 4 mg DAILY@17 ONCE PO Last administered on 10/29/16 17:48; Admin Dose 4 MG; Start 10/29/16 at 17:00; Stop 10/29/16 at 17:01; Status DC Mental Status Exam Appearance: Neat/well groomed Attitude: Pleasant, Cooperative Behavior: Overtly anxious Affect: Well Modulated/Appropriate Mood: Anxious Thought Process/Associations: Logical/Sequential, Goal Directed, Tangential Speech Production: Normal Speech Rate: Normal Speech Articulation: Normal Thought Content: Suspicious Danger to Self/Suicidal Ideati: None Danger to Others: None Delusions: Paranoid (Endorses) Hallucinations: Auditory (Endorses), Visual (Denies) Consciousness: Alert Orientation: Person, Place, Date, Situation Memory: Grossly Intact Estimate Intellectual Function: Average Attention/Concentration & Cogn: Impaired Insight: Limited Judgement: Limited Mental Health Plan The patient is an 81-year-old female with a history of delusional disorder and 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 The patient is currently experiencing auditory hallucinations and paranoia as noted above. The patient appears to be tolerating risperidone with a reduction in her auditory hallucinations and paranoia but reports needing it earlier in the evening. She is not currently willing to start Namenda to potentially address her vascular dementia. We discussed housing options with the patient and that we are still waiting the assessment from home and community services. She was accepted at [facility] but did not wish to go when so many have difficulty with placement or will be housed at the long-term. Discussed her case with infectious disease and they recommend doing a stool PCR and following up as needed. 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 AXIS II Deferred. AXIS III 1. History of hypertension. 2. Chronic obstructive pulmonary disease. 3. Hyperlipidemia. 4. Deep venous thrombosis. AXIS IV psychosocial stressors moderate to severe with homelessness, poor insight, lack of social supports, and poor coping skills. AXIS V Global Assessment of Functioning current 35. Medications [place] 7.5/325 Metoprolol 12.5 mg twice daily Furosemide 20 mg daily Atorvastatin 5mg at bedtime Pantoprazole 40mg po daily Advair 250-50 bid prn Spiriva 18 g daily Aspirin 81 mg daily Singulair 10 mg nightly Cetirizine 5 mg at bedtime Combivent one spray 4 times a day as needed Risperidone 1 mg at bedtime Warfarin as per pharmacy PT/INR. Treatments 1. Continue risperidone 1 mg nightly due to ongoing hallucinations but will move up to dinnertime. 2. The patient is awaiting the results of her outpatient assessment by home and community services and may have emergency housing early next week. 3. The patient has declined housing at [facility]. 4. The patient is encouraged to participate with groups and individual therapy. 5. The patient will meet with the treatment team on a daily basis to assess symptoms, side effects, and response to treatment. 6. Case closed by Adult Protective Services, but Home and Community Services still working with patient on disposition. 7. Will send stool for PCR. 8. Loperamide 4 mg now and 2 mg as needed every 6 hours. 9. Patient ready for discharge when we have a disposition and patient more psychiatrically stable. Sanjay Camejo MD Oct 31, 2016 13:17
--- NOTE | 2016-10-31 16:11 | NUR ---
Piece Dyer/Counselor: S: "I had a very bad night last night because 'they' had that radio going all night. It was REALLY bad." O: Patient slept 9 hours last night as per staff. She denies S/I and H/I. She denies auditory and visual hallucinations. Depression is 0/10 anxiety is 0/10. A: Patient is cooperative, tangential, anxious, paranoid, limited insight, poor judgment. P: Follow care plan, coordinate with out-patient providers, Home and Community Services, and Geriatric Transitions Services.
--- NOTE | 2016-10-31 16:50 | NUR ---
Observations 0700 to 1900 Pt affect and mood was friendly, social and content. Pt speech and eye contact was good. Pt attended group and unit activities. Pt did some coloring and worked on some bracelets. Pt was social with staff and peers when approached. Pt attended meals in [facility]. and ate about 25% of breakfast and 75% of lunch. Pt continues to have lots of complaints about the food here. Pt maintained behavior throughout the shift. Pt was polite, pleasant and cooperative. Pt had a visitor and it appeared to go well. Pt was observed every 15 minutes throughout the shift as ordered.
[2016-10-31] MEDS: risperiDONE 1 mg Tablet PO SCH (20:50)
[2016-11-01] MEDS: HYDROcodone-APAP 7.5-325 mg Tablet PO PRN ×3 (03:34→16:15)
--- NOTE | 2016-11-01 05:10 | NUR ---
Pt out on unit this evening enjoyed coloring and interacting. Asleep [id number], 2345-330. Pt observed every 15 minutes as ordered.
--- NOTE | 2016-11-01 05:47 | NUR ---
Nursing note: shift production supervisor/ sleep/pain Patient observed up in dining room at beginning of shift, recently awakened due to testing fire alarm noise. Patient is social with another female peer, then retired to bed. Patient appeared to be sleeping until 0330 and again up to dining room. Patient requests "Vicodin" for chronic back pain. When staff inquired about her level of pain, patient states "I would say 12 but you only go up to 10!" Patient received Vicodin one tablet, with heat pack and returned to bed. Patient noted to be resting quietly on her bed at 0445, but does not appear to be asleep. Patient continues with fragmented sleep.
[2016-11-01] MEDS: Pantoprazole 40 mg ER24 Tablet PO SCH (08:17)
[2016-11-01] MEDS: Tiotropium 18mcg/Cap 5 Capsule Inhaler Kit INHALATION SCH (08:28)
[2016-11-01 08:56] LABS: INR 2.76 ratio
[2016-11-01 09:00] VITALS: BP 110/68; PULSE 82; RESP 17
--- NOTE | 2016-11-01 10:45 | PCM.PHAPRO ---
Progress Date of Service: Nov 01, 2016 Warfarin dosing A/ INR is therapeutic at 2.76 P/ Give 2mg of warfarin and follow. Bartolome Brandon Nov 01, 2016 10:45
--- NOTE | 2016-11-01 10:54 | NUR ---
Nursing Note [id number] Behavior S/O: Pt ate 100% of breakfast. Pt insisted on specific breakfast that was not in her diet. B/P 110/68. Pulse 82 & irregular. Pt took all medications without problems except Spiriva. She stated, "My doctor took me off that one. The orange one works better." Pt c/o back pain at 1045. She stated, "I tried to take a shower & get hot water on it to make it feel better, but it didn't work." She rated her back pain at a "10" on a scale of 1-10/10 the worst. [place] 7.5-325 given. Conversation tracking clear & organized with normal rate & rhythm. Pt out in dining room coloring this morning. Cooperative with cares. Ambulates independently with limp. A: Pt able to verbalize needs & do own ADL's, but frequently asks for assistance anyway-dependent on others. P: Provide supportive environment. Have pt do as much as possible. Monitor medications & effects.
--- NOTE | 2016-11-01 15:12 | PCM.PNPSY ---
Subjective Date of Service Nov 01, 2016 Subjective The patient reports that her headache is almost gone and reports that her diarrhea has resolved. She reports that the "radio went off" when she was awoken by a fire alarm. She reports feeling that she needs different medications and she is receiving care and would like us to confirm with [facility]. The patient denies side effects from her current medications. Sleep: 4.5 hours, broken Appetite: has returned and ate this morning. Suicidal and homicidal ideation: Denies Auditory hallucinations: As above Visual hallucinations: Denies Other Psychotic Symptoms: N/A Anxiety: "A little bit." Depression: "Depressed about the little boy." Current Medications Current Medications Loperamide HCl 4 mg ONCE ONCE PO Last administered on 10/31/16 13:44; Admin Dose 4 MG; Start 10/31/16 at 13:15; Stop 10/31/16 at 13:17; Status DC Warfarin Sodium 1 mg DAILY@17 PO Last administered on 10/31/16 17:29; Admin Dose 1 MG; Start 10/31/16 at 17:00; Stop 10/31/16 at 17:01; Status DC Warfarin Sodium 3 mg DAILY@17 ONCE PO Last administered on 10/30/16 17:11; Admin Dose 3 MG; Start 10/30/16 at 17:00; Stop 10/30/16 at 17:01; Status DC Mental Status Exam Appearance: Neat/well groomed Attitude: Pleasant, Cooperative Behavior: Overtly anxious Affect: Well Modulated/Appropriate Mood: Anxious Thought Process/Associations: Logical/Sequential, Goal Directed, Tangential Speech Production: Normal Speech Rate: Normal Speech Articulation: Normal Thought Content: Suspicious Danger to Self/Suicidal Ideati: None Danger to Others: None Delusions: Paranoid (Endorses) Hallucinations: Auditory (Endorses), Visual (Denies) Consciousness: Alert Orientation: Person, Place, Date, Situation Memory: Grossly Intact Estimate Intellectual Function: Average Attention/Concentration & Cogn: Impaired Insight: Limited Judgement: Limited Mental Health Plan The patient is an 81-year-old female with a history of delusional disorder and 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 The patient is currently experiencing auditory hallucinations and paranoia as noted above. The patient appears to be tolerating risperidone with a reduction in her auditory hallucinations and paranoia but reports needing it earlier in the evening. She is not currently willing to start Namenda to potentially address her vascular dementia. We discussed housing options with the patient and that we are still waiting the assessment from home and community services. She was accepted at [facility] but did not wish to go there. If Home and Community Services are unable to locate housing, the only option may be a intermediate. The patient's stool PCR was negative although it is unclear whether she gave a stool or urine sample in the hat. 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 AXIS II Deferred. AXIS III 1. History of hypertension. 2. Chronic obstructive pulmonary disease. 3. Hyperlipidemia. 4. Deep venous thrombosis. AXIS IV psychosocial stressors moderate to severe with homelessness, poor insight, lack of social supports, and poor coping skills. AXIS V Global Assessment of Functioning current 35. Medications [place] 7.5/325 Metoprolol 12.5 mg twice daily Furosemide 20 mg daily Atorvastatin 5mg at bedtime Pantoprazole 40mg po daily Advair 250-50 bid prn Spiriva 18 g daily Aspirin 81 mg daily Singulair 10 mg nightly Cetirizine 5 mg at bedtime Combivent one spray 4 times a day as needed Risperidone 1 mg at bedtime Warfarin as per pharmacy PT/INR. Treatments 1. Increase risperidone to 2 mg nightly at 8 PM. 2. The patient is awaiting the results of her outpatient assessment by Home and Community Services and may have emergency housing early next week. 3. The patient has declined housing at [facility]. 4. The patient is encouraged to participate with groups and individual therapy. 5. The patient will meet with the treatment team on a daily basis to assess symptoms, side effects, and response to treatment. 6. Case closed by Adult Protective Services, but Home and Community Services still working with patient on disposition. 7. Patient continues to slowly stabilize although would be appropriate for discharge should housing be available. Sanjay Camejo MD Nov 01, 2016 15:12
--- NOTE | 2016-11-01 18:00 | NUR ---
Observations [id number] Pt was awake in the dining area upon start of shift. Pt stated that she had been up since 2:30 in the morning unable to sleep. Pt continues to take a motherly role with other patients, reminding them to wash their hands and clean up after themselves. Pt requested things to do around the unit, such as laundry or cleaning to help pass the time. Pt did attend all groups, working on coloring and beading. Pt was friendly with peers and staff. She was unhappy with her diet, so the change was made to go back to a regular diet. Pt ate an average of 75% of meals. Pt was observed every 15 minutes of shift as directed.
[2016-11-01] MEDS: Fluticasone-Salmererol 250-50 Inhaler INHALATION PRN (20:20)
[2016-11-01] MEDS: risperiDONE 2 mg Tablet PO SCH (20:21)
[2016-11-02] MEDS: HYDROcodone-APAP 7.5-325 mg Tablet PO PRN ×4 (02:38→22:07)
--- NOTE | 2016-11-02 04:53 | NUR ---
Observations from [id number] Pt was out on unit this evening and seemed to enjoyed coloring and interacting with peers. Pt was asleep from [id number] and from 0315 to present. Pt has been monitored every 15 minutes as directed.
--- NOTE | 2016-11-02 05:35 | NUR ---
Nursing note 11p-07/sleep, prn pain Patient observed to be sleeping at beginning of shift, then awake at 0240 complaining of body aches and requesting Vicodin. Patient received Vicodin, sat up briefly in dining room and retired back to bed and appears to be sleeping on 314 subsequent safety checks.
[2016-11-02] MEDS: Tiotropium 18mcg/Cap 5 Capsule Inhaler Kit INHALATION SCH (08:30)
[2016-11-02] MEDS: Pantoprazole 40 mg ER24 Tablet PO SCH (08:37)
[2016-11-02 08:45] VITALS: BP 104/60; PULSE 111; RESP 16
[2016-11-02] MEDS: Albuterol-Ipratropium 120 Spray 4 Gm Inhaler INHALATION PRN (08:46)
[2016-11-02 09:20] LABS: INR 2.82 ratio
--- NOTE | 2016-11-02 09:52 | PCM.PHAPRO ---
Progress Date of Service: Nov 02, 2016 Warfarin dosing A/ INR is therapeutic at 2.82 but rising slightly. P/ Give 1mg of warfarin and follow. Bartolome Brandon Nov 02, 2016 09:52
--- NOTE | 2016-11-02 14:10 | NUR ---
Nursing Note: 0700 to 1500 S/O: Zeferino has been out on the open unit as usual, coloring and interacting with peers. Alert. Oriented. Appetite good. No complaints or requests for PRN meds. P: Continue to assess for med effects on next shift. Addendum: 11/02/16 at 1533 by ELISSA RAMOS RN Correction to above: zeferino requested and received vicodin tab 1 at 0845 for general pain. Stated "It helped." At 1420, she again requested vicodin for Headache. Received it at 1445 for head pain: "The worst I have ever had". P: Assess for pain med effectiveness.
--- NOTE | 2016-11-02 16:56 | NUR ---
Observations [id number] Pt was asleep upon start of shift. Pt spent much of her time coloring in the group room and common areas. She talked about her lack of sleep and how she's having difficulty sleeping. Pt was asked about future plans for her discharge, and she became noticeably upset, asking "why do you have to upset me like this?" Pt was very emotional and upset regarding what her future plans are. She had a visitor in the evening. Pt attended all meals, but was upset regarding food as she is on a heart healthy diet, but doesn't like the food. Pt was friendly with peers and staff, and was observed every 15 minutes of shift as directed.
--- NOTE | 2016-11-02 19:55 | PCM.PNPSY ---
Subjective Date of Service Nov 02, 2016 Subjective The patient reports that the "radio" was very loud, perhaps a little worse. She reports her headache is improved. She denies any medical complaints. The patient denies side effects from her current medications. Sleep: 7.5 hours Appetite: "good" Suicidal and homicidal ideation: Denies Auditory hallucinations: Radio, as above Visual hallucinations: Denies Other Psychotic Symptoms: N/A Anxiety: "I don't know, maybe 8/10." Depression: "A little, maybe a lot." Current Medications Current Medications Risperidone 2 mg 20 PO Last administered on 11/01/16 20:21; Admin Dose 2 MG; Start 11/01/16 at 20:00 Warfarin Sodium 1 mg OT ONCE PO Last administered on 11/02/16 17:11; Admin Dose 1 MG; Start 11/02/16 at 17:00; Stop 11/02/16 at 17:01; Status DC Warfarin Sodium 2 mg OT ONCE PO Last administered on 11/01/16 17:04; Admin Dose 2 MG; Start 11/01/16 at 17:00; Stop 11/01/16 at 17:01; Status DC Mental Status Exam Appearance: Neat/well groomed Attitude: Pleasant, Cooperative Behavior: Overtly anxious Affect: Well Modulated/Appropriate Mood: Anxious Thought Process/Associations: Logical/Sequential, Goal Directed, Tangential Speech Production: Normal Speech Rate: Normal Speech Articulation: Normal Thought Content: Suspicious Danger to Self/Suicidal Ideati: None Danger to Others: None Delusions: Paranoid (Endorses) Hallucinations: Auditory (Endorses), Visual (Denies) Consciousness: Alert Orientation: Person, Place, Date, Situation Memory: Grossly Intact Estimate Intellectual Function: Average Attention/Concentration & Cogn: Impaired Insight: Limited Judgement: Limited Mental Health Plan The patient is an 81-year-old female with a history of delusional disorder and 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 The patient is currently experiencing auditory hallucinations and paranoia as noted above. The patient appears to be tolerating risperidone with a reduction in her auditory hallucinations and paranoia but reports needing it earlier in the evening. She is not currently willing to start Namenda to potentially address her vascular dementia. We discussed housing options with the patient and that we are still waiting the assessment from home and community services. She was accepted at [facility] but did not wish to go there. If [facility] are unable to locate housing, the only option may be a fci. Unclear whether increase of risperidone has been helpful. 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 AXIS II Deferred. AXIS III 1. History of hypertension. 2. Chronic obstructive pulmonary disease. 3. Hyperlipidemia. 4. Deep venous thrombosis. AXIS IV psychosocial stressors moderate to severe with homelessness, poor insight, lack of social supports, and poor coping skills. AXIS V Global Assessment of Functioning current 35. Medications [place] 7.5/325 Metoprolol 12.5 mg twice daily Furosemide 20 mg daily Atorvastatin 5mg at bedtime Pantoprazole 40mg po daily Advair 250-50 bid prn Spiriva 18 g daily Aspirin 81 mg daily Singulair 10 mg nightly Cetirizine 5 mg at bedtime Combivent one spray 4 times a day as needed Risperidone 2 mg at bedtime Warfarin as per pharmacy PT/INR. Treatments 1. Continue risperidone 2 mg nightly at 8 PM, titrate as tolerated. 2. The patient is awaiting the results of her outpatient assessment by [facility] and may have emergency housing early next week. 3. The patient has declined housing at [facility]. 4. The patient is encouraged to participate with groups and individual therapy. 5. The patient will meet with the treatment team on a daily basis to assess symptoms, side effects, and response to treatment. 6. Case closed by Adult Protective Services, but [facility] still working with patient on disposition. 7. Patient continues to slowly stabilize although would be appropriate for discharge should housing be available. Sanjay Camejo MD Nov 02, 2016 19:55
[2016-11-02] MEDS: risperiDONE 2 mg Tablet PO SCH (21:35)
--- NOTE | 2016-11-02 22:41 | NUR ---
Nursing Note Carola- Pt up in milieu upon arrival to unit. Pt spent the shift up socializing, coloring and had a visitor in the carola. Pt denied anxiety but when asked about current housing situation and future plans, pt started crying and stated "Its not easy I guess I will go on the street if I have to". Pt eating all meals and was given PRN [place] for left foot pain. Q15 min safety checks per protocol , WCTM sleep, safety, behavior
--- NOTE | 2016-11-03 06:28 | NUR ---
Nursing Noc s/o- has appeared to sleep after 2315 during q 15 minute assessments. a- no apparent distress. p- monitor behavior/emotional state, quality, times and amount of sleep, use and effect of medication.
[2016-11-03] MEDS: Tiotropium 18mcg/Cap 5 Capsule Inhaler Kit INHALATION SCH (07:48)
[2016-11-03] MEDS: Albuterol-Ipratropium 120 Spray 4 Gm Inhaler INHALATION PRN (07:48)
[2016-11-03] MEDS: Pantoprazole 40 mg ER24 Tablet PO SCH (07:59)
[2016-11-03] MEDS: HYDROcodone-APAP 7.5-325 mg Tablet PO PRN ×3 (08:25→20:45)
[2016-11-03 09:15] LABS: INR 2.4 ratio
--- NOTE | 2016-11-03 10:23 | PCM.PHAPRO ---
Progress Date of Service: Nov 03, 2016 Warfarin dosing Warfarin dosing per pharmacy Indication: atrial fibrillation INR goal: 2-3 Date 1-Oct 2-Oct 3-Oct 31-Oct 5-Oct 6-Nov 03-Oct INR 2.64 2.34 2.51 3.06 2.76 2.82 2.4 INR change -0.01 -0.3 0.17 0.55 -0.3 0.06 -0.42 Dose 2 MG 4 MG 3 MG 1MG 2 1MG XXX INR is therapeutic. Give warfarin 3 mg PO today at 1700. Pharmacy to continue to monitor and dose warfarin daily. Thank you, Christiano Moseley Pharmacist Christiano Moseley Nov 03, 2016 10:23
[2016-11-03 10:30] VITALS: BP 134/80; PULSE 120; RESP 17
--- NOTE | 2016-11-03 11:08 | NUR ---
Nursing Note [id number] Behavior S/O: Pt has good appetite. Pt's VS WNL. Pulse is 88 & irregular. Pt has requested wallet to "pay bills. I don't want bad credit." Pt is currently homeless & not using utilities. Pt d/n want to get up out of bed this morning. She states she was in pain all night. Pt given [place] 7.5-325 at 0825 for pain at a "10" on a scale of 1-10/10 the worst. Good effect. Pt reported pain at 1030 as "a little." Pt out in milieu part of the morning coloring. Pt making frequent requests from staff. A: Pt is entitled. Thoughts are distorted about paying bills. P: Provide supportive environment. Monitor medications & effects.
--- NOTE | 2016-11-03 18:57 | NUR ---
Metal Bonding Worker/Counselor: S: "I heard that radio again last night." O: Patient slept 6+ hours last night as per staff. She denies S/I and H/I. She reports "hearing the radio again last night." She denies visual hallucinations. This show card writer spoke with Pauly from [facility] and Pauly stated that she has not found any suitable housing for patient as of late. This show card writer called [facility] and there are no available beds this entire week. This show card writer also called a few other agencies and housing resources, but no one had available beds. Ruba from Risk Management spoke with patient about housing resources as well and stated that [facility] will ensure a safe discharge plan will be in place prior to discharging patient, regardless to if [facility] is paying for patient's stay or not. A: Patient is cooperative, tangential, anxious, paranoid, limited insight, poor judgment. P: Follow care plan, coordinate with out-patient providers, [facility], and [facility].
--- NOTE | 2016-11-03 19:18 | NUR ---
Obs [place] [id number] Pt appears to have no change in the last week. Pt doesn't appear to be responding, engages with peers and staff. Loud, demanding, needy. Pt does little/nothing to prepare for DC, or make plans for DC'ing. Pt is making statements of her needs to peers, I need my own place to live, I have special diet needs, etc. Often complaining about not getting her needs met, not having access to things, food, people that she believes she needs. Poor ADL's, Ok meals
--- NOTE | 2016-11-03 19:37 | PCM.PNPSY ---
Subjective Date of Service Nov 03, 2016 Subjective The patient reports that the "radio" was very loud last night. She reports her headache is improved but still present. She denies any medical complaints. The patient denies side effects from her current medications. Mild cogwheeling is noted on physical examination. Sleep: 6 hours Appetite: "good" Suicidal and homicidal ideation: Denies Auditory hallucinations: Radio, as above Visual hallucinations: Denies Other Psychotic Symptoms: N/A Current Medications Current Medications Risperidone 2 mg 20 PO Last administered on 11/02/16 21:35; Admin Dose 2 MG; Start 11/01/16 at 20:00 Warfarin Sodium 1 mg OT ONCE PO Last administered on 11/02/16 17:11; Admin Dose 1 MG; Start 11/02/16 at 17:00; Stop 11/02/16 at 17:01; Status DC Warfarin Sodium 3 mg ONCE ONCE PO Last administered on 11/03/16 18:18; Admin Dose 3 MG; Start 11/03/16 at 17:00; Stop 11/03/16 at 17:01; Status DC Mental Status Exam Appearance: Neat/well groomed Attitude: Pleasant, Cooperative Behavior: Overtly anxious Affect: Well Modulated/Appropriate Mood: Anxious Thought Process/Associations: Logical/Sequential, Goal Directed, Tangential Speech Production: Normal Speech Rate: Normal Speech Articulation: Normal Thought Content: Suspicious Danger to Self/Suicidal Ideati: None Danger to Others: None Delusions: Paranoid (Endorses) Hallucinations: Auditory (Endorses), Visual (Denies) Consciousness: Alert Orientation: Person, Place, Date, Situation Memory: Grossly Intact Estimate Intellectual Function: Average Attention/Concentration & Cogn: Impaired Insight: Limited Judgement: Limited Mental Health Plan The patient is an 81-year-old female with a history of delusional disorder and 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 The patient is currently experiencing auditory hallucinations and paranoia as noted above. The patient appears to be tolerating risperidone with a reduction in her auditory hallucinations and paranoia but reports needing it earlier in the evening. She is not currently willing to start Namenda to potentially address her vascular dementia. We discussed housing options with the patient and that we are still waiting the assessment from home and community services. She was accepted at [facility] but did not wish to go there. If [facility] are unable to locate housing, the only option may be a fpc although they are currently declining to take her. Unclear whether increase of risperidone has been helpful. Despite the patient's report to the contrary, she appears to be receiving her outpatient inhalation medications. There appears to be a formulary substitution Advair Diskus with Symbicort. 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 AXIS II Deferred. AXIS III 1. History of hypertension. 2. Chronic obstructive pulmonary disease. 3. Hyperlipidemia. 4. Deep venous thrombosis. AXIS IV psychosocial stressors moderate to severe with homelessness, poor insight, lack of social supports, and poor coping skills. AXIS V Global Assessment of Functioning current 35. Medications [place] 7.5/325 Metoprolol 12.5 mg twice daily Furosemide 20 mg daily Atorvastatin 5mg at bedtime Pantoprazole 40mg po daily Advair 250-50 bid prn Spiriva 18 g daily Aspirin 81 mg daily Singulair 10 mg nightly Cetirizine 5 mg at bedtime Combivent one spray 4 times a day as needed Risperidone 2 mg at bedtime Warfarin as per pharmacy PT/INR. Treatments 1. Continue risperidone 2 mg nightly at 8 PM, titrate as tolerated. 2. [facility] reports that they do not have housing for the patient. 3. The patient has declined housing at [facility]. 4. The patient is encouraged to participate with groups and individual therapy. 5. The patient will meet with the treatment team on a daily basis to assess symptoms, side effects, and response to treatment. 6. Case closed by Adult Protective Services. 7. The patient may be able to go to an adult family home, referrals will be made by counselors with assistance from social work. 8. Patient continues to slowly stabilize although would be appropriate for discharge should housing be available. Sanjay Camejo MD Nov 03, 2016 19:37
[2016-11-03] MEDS: risperiDONE 2 mg Tablet PO SCH (20:28)
--- NOTE | 2016-11-04 06:14 | NUR ---
Sleep Adequate sleep through the night with no noted distress or awakening per protocol checks. Total sleep over 7 hours.
[2016-11-04] MEDS: Fluticasone-Salmererol 250-50 Inhaler INHALATION PRN (07:05)
[2016-11-04] MEDS: Albuterol-Ipratropium 120 Spray 4 Gm Inhaler INHALATION PRN (07:07)
[2016-11-04] MEDS: HYDROcodone-APAP 7.5-325 mg Tablet PO PRN ×3 (08:04→23:11)
[2016-11-04] MEDS: Tiotropium 18mcg/Cap 5 Capsule Inhaler Kit INHALATION SCH (08:13)
[2016-11-04] MEDS: Pantoprazole 40 mg ER24 Tablet PO SCH (08:15)
[2016-11-04 08:29] LABS: INR 2.01 ratio
--- NOTE | 2016-11-04 10:06 | PCM.PHAPRO ---
Progress Date of Service: Nov 04, 2016 Warfarin dosing Warfarin dosing per pharmacy Indication: atrial fibrillation INR goal: 2-3 Date 2-Oct 3-Oct 31-Nov 01-Nov 02-Nov 03-Nov 04-Oct INR 2.34 2.51 3.06 2.76 2.82 2.4 2.01 INR change -0.3 0.17 0.55 -0.3 0.06 -0.42 -0.39 dose 4 MG 3 MG 1MG 2 1MG 3 MG xxx INR is therapeutic but trending down - will give larger dose tonight. Give warfarin 5 mg PO today at 1700. Pharmacy to continue to monitor and dose warfarin daily. Thank you, Christiano Moseley Pharmacist Christiano Moseley Nov 04, 2016 10:06
[2016-11-04 15:29] VITALS: BP 97/69; PULSE 104
--- NOTE | 2016-11-04 16:21 | NUR ---
Day 7a - 7p Pt visible on the unit for meals and groups, interacting appropriately with peers and staff, able to make needs known, attending adequately to ADL, adequate food and fluid intake, gait steady. Pt hard of hearing and needs questions often repeated. Received pt in her room, she was going through the phone book calling housing options. Pt stated she had contacted several motels and a few apartments but "the rent was too much or they required a down payment". She went on to say " I would rather live on the streets than live with a bunch of crazy people. I would end up in an insane asylum". Pt minimized the dangers of living on the streets stating " A lot of other people do so I guess i will to if I have no choice". Pt thoughts, linear and organized with poor insight and judgement, mood and affect euthymic. No side effects or medical issues reported or observed pt medicated for pain x2 ( see MAR).
--- NOTE | 2016-11-04 18:30 | PCM.PNPSY ---
Subjective Date of Service Nov 04, 2016 Subjective The patient reports that she is upset as her younger brother reported that her 47-year-old niece last week from cancer and she was not notified. The patient states that her sister with multiple sclerosis is also not doing well. The patient is doubly upset that she had planned on potentially staying with her niece upon discharge. She does not like or get along with her niece's and says that he use to "flirt with her "and so will not stay there. The patient continues to report that the "radio" was very loud last night. She reports her headache is improved. She denies any other medical complaints. The patient denies side effects from her current medications. The patient stated that she may "go somewhere you send me, but I do not have to stay there. " The patient appears fixated on her storage and accumulated sentimental items and inability to give them to family members. Sleep: 7+ hours Appetite: "good" Suicidal and homicidal ideation: Denies Auditory hallucinations: Radio, as above Visual hallucinations: None reported Other Psychotic Symptoms: N/A Current Medications Current Medications Warfarin Sodium 3 mg ONCE ONCE PO Last administered on 11/03/16 18:18; Admin Dose 3 MG; Start 11/03/16 at 17:00; Stop 11/03/16 at 17:01; Status DC Warfarin Sodium 5 mg ONCE ONCE PO Last administered on 11/04/16 17:04; Admin Dose 5 MG; Start 11/04/16 at 17:00; Stop 11/04/16 at 17:01; Status DC Mental Status Exam Vital Signs Vital Signs Date Time Temp Pulse Resp B/P Pulse Ox O2 Delivery O2 Flow Rate FiO2 11/04/16 15:29 104 97/69 Appearance: Neat/well groomed Attitude: Pleasant, Cooperative Behavior: Overtly anxious, Tearful Affect: Labile Mood: Dysthymic, Anxious Thought Process/Associations: Logical/Sequential, Goal Directed, Tangential Speech Production: Normal Speech Rate: Normal Speech Articulation: Normal Thought Content: Suspicious Danger to Self/Suicidal Ideati: None Danger to Others: None Delusions: Paranoid (Endorses) Hallucinations: Auditory (Endorses), Visual (Denies) Consciousness: Alert Orientation: Person, Place, Date, Situation Memory: Grossly Intact Estimate Intellectual Function: Average Attention/Concentration & Cogn: Impaired Insight: Limited Judgement: Limited Mental Health Plan The patient is an 81-year-old female with a history of delusional disorder and 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 The patient is currently experiencing auditory hallucinations and paranoia as noted above. The patient appears to be tolerating risperidone with a reduction in her auditory hallucinations and paranoia but reports needing it earlier in the evening. She is not currently willing to start Namenda to potentially address her vascular dementia. We discussed housing options with the patient and that we are still waiting the assessment from home and community services. She was accepted at [facility] but did not wish to go there. If [facility] are unable to locate housing, the only option may be a fpc although they are currently declining to take her. Unclear whether increase of risperidone has been helpful. Despite the patient's report to the contrary, she appears to be receiving her outpatient inhalation medications. There appears to be a formulary substitution Advair Diskus with Symbicort. It appears that the patient may be eligible for a correction; however, the patient is unwilling to part with her multiple storage units and the income associated with them. She may need a guardian to assist her with decision making as she does not appear to be thinking logically as the only other alternative is homelessness. 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 AXIS II Deferred. AXIS III 1. History of hypertension. 2. Chronic obstructive pulmonary disease. 3. Hyperlipidemia. 4. Deep venous thrombosis. AXIS IV psychosocial stressors moderate to severe with homelessness, poor insight, lack of social supports, and poor coping skills. AXIS V Global Assessment of Functioning current 35. Medications [place] 7.5/325 Metoprolol 12.5 mg twice daily Furosemide 20 mg daily Atorvastatin 5mg at bedtime Pantoprazole 40mg po daily Advair 250-50 bid prn Spiriva 18 g daily Aspirin 81 mg daily Singulair 10 mg nightly Cetirizine 5 mg at bedtime Combivent one spray 4 times a day as needed Risperidone 2 mg at bedtime Warfarin as per pharmacy PT/INR. Treatments 1. Continue risperidone 2 mg nightly at 8 PM, titrate as tolerated. 2. [facility] reports that they do not have housing for the patient. 3. The patient has declined housing at [facility]. 4. The patient is encouraged to participate with groups and individual therapy. 5. The patient will meet with the treatment team on a daily basis to assess symptoms, side effects, and response to treatment. 6. Case closed by Adult Protective Services. 7. The patient may be able to go to an adult family home, awaiting response from 2 referrals. 8. Patient continues to slowly stabilize although would be appropriate for discharge should housing be available. Sanjay Camejo MD Nov 04, 2016 18:30
--- NOTE | 2016-11-04 19:40 | NUR ---
Live In Housekeeper Nanny/Counselor: S: "My niece was only 46 years old and she last week." O: Patient slept 7+ hours last night as per staff. She denies S/I and H/I. She reports "the radio was bad again last night." She denies visual hallucinations. Depression and anxiety are "yes." This sports book writer spoke with Pauly from [facility] and Pauly gave this sports book writer telephone numbers for [facility]. This sports book writer called and spoke with a escrow representative of each home and provided patient's age and gender. Each home has an opening for a female and will hopefully let this sports book writer know tomorrow if patient will be able to move in. Patient had a visit from [facility] Ger[facility] Transitions Specialist. A: Patient is cooperative, tangential, anxious, paranoid, limited insight, poor judgment. P: Follow care plan, coordinate with out-patient providers, Home [facility] Community Services, and [facility].
[2016-11-04] MEDS: risperiDONE 2 mg Tablet PO SCH (22:13)
--- NOTE | 2016-11-05 00:35 | NUR ---
Nursing Note [id number] Pt up in milieu socializing upon arrival to unit. Pt participated in activities and socialized with peers. Pt c/t state "I still didn't know where I am going to live, I guess I am going to live on the street". Pt denied anxiety or depression and was complaint with meds. Pt requested [place] for pain at 2315 and went to bed shortly after. Pt currently resting in bed with Q15 min safety checks per protocol. WCTM sleep, safety, behavior
[2016-11-05] MEDS: Pantoprazole 40 mg ER24 Tablet PO SCH (08:02)
[2016-11-05] MEDS: HYDROcodone-APAP 7.5-325 mg Tablet PO PRN ×2 (08:05→20:56)
[2016-11-05] MEDS: Tiotropium 18mcg/Cap 5 Capsule Inhaler Kit INHALATION SCH ×2 (08:30→21:00)
[2016-11-05 08:35] VITALS: BP 114/83; PULSE 109; RESP 18
[2016-11-05 09:17] LABS: INR 2.72 ratio
--- NOTE | 2016-11-05 10:00 | PCM.PHAPRO ---
Progress Date of Service: Nov 05, 2016 Warfarin dosing Warfarin dosing per pharmacy Indication: atrial fibrillation INR goal: 2-3 Date 3-Oct 31-Nov 01-Nov 02-Nov 03-Nov 04-Nov 05-Oct INR 2.51 3.06 2.76 2.82 2.4 2.01 2.7 INR change 0.17 0.55 -0.3 0.06 -0.42 -0.39 0.69 Dose 3 MG 1MG 2 1MG 3 MG 5 MG xxx Significant INR increase following bolus doses. INR is within therapeutic range. Give warfarin 2 mg PO today at 1700. Pharmacy to continue to monitor and dose warfarin daily. Thank you, Christiano Moseley Pharmacist Christiano Moseley Nov 05, 2016 10:00
[2016-11-05] MEDS: Albuterol-Ipratropium 120 Spray 4 Gm Inhaler INHALATION PRN ×2 (15:09→21:00)
--- NOTE | 2016-11-05 17:26 | NUR ---
Nursing Note Robin Sauer Nursing Notes [id number] S: I am doing good. O: Pt cooperative, pleasant and participating with group. Pt is very active with staff and patients. A: Pt appears well kept today, appears to be happy. P: Monitor for safety and response to treatment. Follow plan of care. for safety/response to treatment. Follow PRNs Combivent X1 with good effect.
--- NOTE | 2016-11-05 19:50 | NUR ---
Observations 0900 to 2130 Pt affect and mood was friendly, social and content. Pt speech and eye contact was good. Pt attended group and unit activities. Pt did some coloring and worked on arts and crafts. Pt was social with staff and peers when approached. Pt attended meals in D.R. and ate about 100% of breakfast, 50% of lunch and 75% of dinner. Pt maintained behavior for the shift. Pt was polite, pleasant and cooperative. Pt had a visitor and it appeared to go well. Pt was observed every 15 minutes throughout the shift as ordered.
--- NOTE | 2016-11-05 20:27 | PCM.PNPSY ---
Subjective Date of Service Nov 05, 2016 Subjective The patient reports that she "found a place, but they won't have a vacancy until December 01." Patient reports that she is frustrated with not having housing. Reports Auditory hallucinations unchanged. Reports having a tension headache today. No other medical complaints or side effects. Sleep: 6-7+ hours, bad due to the raio. Appetite: "good" Suicidal and homicidal ideation: Denies Auditory hallucinations: Radio, as above Visual hallucinations: Denies Other Psychotic Symptoms: N/A Anxiety: 05/06 Depression: 07/06 Current Medications Current Medications Warfarin Sodium 2 mg ONCE ONCE PO Last administered on 11/05/16 17:50; Admin Dose 2 MG; Start 11/05/16 at 17:00; Stop 11/05/16 at 17:01; Status DC Warfarin Sodium 5 mg ONCE ONCE PO Last administered on 11/04/16 17:04; Admin Dose 5 MG; Start 11/04/16 at 17:00; Stop 11/04/16 at 17:01; Status DC Mental Status Exam Appearance: Neat/well groomed Attitude: Pleasant, Cooperative Behavior: Overtly anxious Affect: Restricted Mood: Dysthymic, Anxious Thought Process/Associations: Logical/Sequential, Goal Directed, Tangential Speech Production: Normal Speech Rate: Normal Speech Articulation: Normal Thought Content: Suspicious Danger to Self/Suicidal Ideati: None Danger to Others: None Delusions: Paranoid (Endorses) Hallucinations: Auditory (Endorses), Visual (Denies) Consciousness: Alert Orientation: Person, Place, Date, Situation Memory: Grossly Intact Estimate Intellectual Function: Average Attention/Concentration & Cogn: Impaired Insight: Limited Judgement: Limited Mental Health Plan The patient is an 81-year-old female with a history of delusional disorder and 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 The patient is currently experiencing auditory hallucinations and paranoia as noted above. The patient appears to be tolerating risperidone with a reduction in her auditory hallucinations and paranoia but reports needing it earlier in the evening. She is not currently willing to start Namenda to potentially address her vascular dementia. We discussed housing options with the patient and that we are still waiting the assessment from home and community services. She was accepted at [facility] but did not wish to go there. If [facility] are unable to locate housing, the only option may be a longterm although they are currently declining to take her. Unclear whether increase of risperidone has been helpful. Despite the patient's report to the contrary, she appears to be receiving her outpatient inhalation medications. There appears to be a formulary substitution Advair Diskus with Symbicort. It appears that the patient may be eligible for a nursing home; however, the patient is unwilling to part with her multiple storage units and the income associated with them. Patient is again focused on private housing which she cannot afford. She may need a guardian to assist her with decision making as she does not appear to be thinking logically as the only other alternative is homelessness. Patient's report of level of depression and anxiety appear out of proportion to observed interactions and affect. 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 AXIS II Deferred. AXIS III 1. History of hypertension. 2. Chronic obstructive pulmonary disease. 3. Hyperlipidemia. 4. Deep venous thrombosis. AXIS IV psychosocial stressors moderate to severe with homelessness, poor insight, lack of social supports, and poor coping skills. AXIS V Global Assessment of Functioning current 35. Medications [place] 7.5/325 Metoprolol 12.5 mg twice daily Furosemide 20 mg daily Atorvastatin 5mg at bedtime Pantoprazole 40mg po daily Advair 250-50 bid prn Spiriva 18 g daily Aspirin 81 mg daily Singulair 10 mg nightly Cetirizine 5 mg at bedtime Combivent one spray 4 times a day as needed Risperidone 2 mg at bedtime Warfarin as per pharmacy PT/INR. Treatments 1. Continue risperidone 2 mg nightly at 8 PM, titrate as tolerated. 2. [facility] reports that they do not have housing for the patient. 3. The patient has declined housing at [facility]. 4. The patient is encouraged to participate with groups and individual therapy. 5. The patient will meet with the treatment team on a daily basis to assess symptoms, side effects, and response to treatment. 6. Case closed by Adult Protective Services. 7. The patient may be able to go to an adult family home, awaiting response from referrals. 8. Patient continues to slowly stabilize although would be appropriate for discharge should housing be available. Sanjay Camejo MD Nov 05, 2016 20:27
[2016-11-05] MEDS: risperiDONE 2 mg Tablet PO SCH (20:56)
--- NOTE | 2016-11-06 04:46 | NUR ---
Observations from [id number] Pt had a visitor this evening and spent the rest of her time coloring and watching movies with peers. Pt said she accomplished her goal of doing her best with everything and rated her mood 05/06. Pt appeared asleep at 2300 and has slept through the night. Pt has been monitored every 15 minutes as directed.
[2016-11-06] MEDS: Pantoprazole 40 mg ER24 Tablet PO SCH (08:15)
[2016-11-06] MEDS: HYDROcodone-APAP 7.5-325 mg Tablet PO PRN ×3 (08:15→21:57)
[2016-11-06] MEDS: Tiotropium 18mcg/Cap 5 Capsule Inhaler Kit INHALATION SCH (08:15)
[2016-11-06 08:47] LABS: INR 3.1 ratio
[2016-11-06 09:08] VITALS: BP 95/54; PULSE 66; RESP 16
--- NOTE | 2016-11-06 10:05 | PCM.PHAPRO ---
Progress Date of Service: Nov 06, 2016 Warfarin dosing Warfarin dosing per pharmacy Indication: atrial fibrillation INR goal: 2-3 Date -Nov 01-Oct 6-Oct 7-Oct 8-Nov 05-Nov 06-Oct INR 3.06 2.76 2.82 2.4 2.01 2.7 3.10 INR change 0.55 -0.3 0.06 -0.42 -0.39 0.69 0.4 Dose 1MG 2 1MG 3 MG 5 MG 2 XXX Today's INR is supratherapeutic; however, anticipate that INR will start trending down due to lower dose of 2 mg given yesterday. Give warfarin 0.5 mg PO today at 1700. Pharmacy to continue to monitor and dose warfarin daily. Thank you, Christiano Moseley Pharmacist Christiano Moseley Nov 06, 2016 10:05
--- NOTE | 2016-11-06 13:51 | NUR ---
Nursing notes from [id number] S: I am doing good. O: Pt cooperative, pleasant and participating with group. Pt is very inter active with staff and patients. A: Pt appears well kept today, she applied make up this morning and has two bonilla in her hair. P: Monitor for safety and response to treatment. Follow plan of care. for safety/response to treatment. Follow PRNs
--- NOTE | 2016-11-06 17:38 | NUR ---
[facility] [place] Day Shift Pt affect and behavior unchanged from previous shifts. Pt maintained behavioral control throughout the shift. Pt affect appears mostly euthymic. Pt spends most of the shift sitting quietly/interacting with peers in the dining room, resting in her room, and participating in unit activities. Pt is pleasant and appropriate with staff and peers when active on the unit. Pt attended community meeting in the AM and all group activities throughout the shift. Pt attended all meals and ate approx 100% of all meals.
--- NOTE | 2016-11-06 18:02 | PCM.PNPSY ---
Subjective Date of Service Nov 06, 2016 Subjective The patient reports that the "radio" was much quieter last night and she has heard fewer voices today. She reports that she spoke with her ex- on the phone but it is unclear whether she actually spoke with him with this was a hallucination. The patient was seen by an adult family home, accepted, and will be ready for transfer on Wednesday. No other medical complaints or side effects. Sleep: 6.5 hours Appetite: "So-so" Suicidal and homicidal ideation: Denies Auditory hallucinations: Radio, as above Visual hallucinations: Denies Other Psychotic Symptoms: N/A Anxiety: 0/10 Depression: "A little depressed, I guess" Current Medications Current Medications Warfarin Sodium 0.5 mg ONCE ONCE PO Last administered on 11/06/16 17:11; Admin Dose 0.5 MG; Start 11/06/16 at 17:00; Stop 11/06/16 at 17:01; Status DC Warfarin Sodium 2 mg ONCE ONCE PO Last administered on 11/05/16 17:50; Admin Dose 2 MG; Start 11/05/16 at 17:00; Stop 11/05/16 at 17:01; Status DC Mental Status Exam Appearance: Neat/well groomed Attitude: Pleasant, Cooperative Behavior: Overtly anxious Affect: Restricted Mood: Anxious Thought Process/Associations: Logical/Sequential, Goal Directed, Tangential ( but improved) Speech Production: Normal Speech Rate: Normal Speech Articulation: Normal Thought Content: Suspicious Danger to Self/Suicidal Ideati: None Danger to Others: None Delusions: Paranoid (Endorses) Hallucinations: Auditory (Endorses), Visual (Denies) Consciousness: Alert Orientation: Person, Place, Date, Situation Memory: Grossly Intact Estimate Intellectual Function: Average Attention/Concentration & Cogn: Impaired Insight: Limited Judgement: Limited Mental Health Plan The patient is an 81-year-old female with a history of delusional disorder and 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 The patient is currently experiencing auditory hallucinations and paranoia as noted above. The patient appears to be tolerating risperidone with a reduction in her auditory hallucinations and paranoia but reports needing it earlier in the evening. She is not currently willing to start Namenda to potentially address her vascular dementia. We discussed housing options with the patient and that we are still waiting the assessment from home and community services. She was accepted at [facility] but did not wish to go there. If [facility] are unable to locate housing, the only option may be a half-way although they are currently declining to take her. Unclear whether increase of risperidone has been helpful. Despite the patient's report to the contrary, she appears to be receiving her outpatient inhalation medications. There appears to be a formulary substitution Advair Diskus with Symbicort. The patient was assessed by and accepted for an adult family home and is scheduled for discharge on Wednesday. The patient also reports a decrease in her auditory hallucinations of the "radio". 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 AXIS II Deferred. AXIS III 1. History of hypertension. 2. Chronic obstructive pulmonary disease. 3. Hyperlipidemia. 4. Deep venous thrombosis. AXIS IV psychosocial stressors moderate to severe with homelessness, poor insight, lack of social supports, and poor coping skills. AXIS V Global Assessment of Functioning current 35. Medications [place] 7.5/325 Metoprolol 12.5 mg twice daily Furosemide 20 mg daily Atorvastatin 5mg at bedtime Pantoprazole 40mg po daily Advair 250-50 bid prn Spiriva 18 g daily Aspirin 81 mg daily Singulair 10 mg nightly Cetirizine 5 mg at bedtime Combivent one spray 4 times a day as needed Risperidone 2 mg at bedtime Warfarin as per pharmacy PT/INR. Treatments 1. Continue risperidone 2 mg nightly at 8 PM, titrate as tolerated. 2. The patient has been accepted by an adult family home with discharge on Wednesday. 3. The patient is encouraged to participate with groups and individual therapy. 4. The patient will meet with the treatment team on a daily basis to assess symptoms, side effects, and response to treatment. 5. Case closed by Adult Protective Services. 6. Anticipate discharge on Wednesday. We will need to have warfarin discharge dose calculated. Sanjay Camejo MD Nov 06, 2016 18:02
[2016-11-06] MEDS: risperiDONE 2 mg Tablet PO SCH (21:54)
--- NOTE | 2016-11-07 03:13 | NUR ---
Nursing Noc Pt presents as previous assessments. Pt denies change in condition spent evening participating in [place], watching TV and wrap up. To sleep at 2230 and remains asleep, Continuing to monitor mood, behavior, emotional state, and sleep quantity. CP
--- NOTE | 2016-11-07 04:04 | NUR ---
Observations from [id number] Pt got into an argument with another pt this evening. The other pt came to sit down with a group of people to watch a movie and she said to this pt "You're not allowed to be out here with us. You can't watch the movie with us. Go back to your room." Understandably, this upset the other pt very much when I confronted this pt about what happened she blatantly lied to my face saying "I didn't say anything to him he's making it all up, he's lying" but 3 other patients who witnessed this approached me and said the she was the one instigated this. She then went on to say "I don't know what the fuck is wrong with him" and I tried to explain to this patient that she didn't need to know what was "wrong" with other patients but that kind of behavior isn't acceptable. She continued to say derogatory things about the pt she upset and was trying to get other patients to join in and I told her she needed to take her meds and go to bed. She appeared asleep at 2230 and has remained asleep throughout Q15 minute checks throughout the night.
[2016-11-07] MEDS: HYDROcodone-APAP 7.5-325 mg Tablet PO PRN ×2 (08:17→21:39)
[2016-11-07] MEDS: Pantoprazole 40 mg ER24 Tablet PO SCH (08:17)
[2016-11-07] MEDS: Albuterol-Ipratropium 120 Spray 4 Gm Inhaler INHALATION PRN ×2 (08:18→08:25)
[2016-11-07] MEDS: Tiotropium 18mcg/Cap 5 Capsule Inhaler Kit INHALATION SCH ×2 (08:21→08:24)
[2016-11-07 11:33] LABS: INR 2.72 ratio
--- NOTE | 2016-11-07 12:03 | PCM.PHAPRO ---
Progress Warfarin dosing -Oct 9-Nov 06-Oct 11-Oct 2.01 2.7 3.10 2.20 -0.39 0.69 0.4 -0.9 5 MG 2 0.5 MG 2.5 Obdulio Patel Nov 07, 2016 12:03
--- NOTE | 2016-11-07 14:54 | NUR ---
Staff Development Coordinator/Counselor: S: "My blood pressure is up today." O: Patient slept 7.5 hours last night as per staff. She denies S/I and H/I. She reports "the radio was a little quieter last night, but Gema was screaming so loud last night and I don't know why." She denies visual hallucinations. Depression is 0/10 and anxiety is 0/10. A: Patient is cooperative, tangential, anxious, paranoid, irritable at times, limited insight, poor judgment. P: Follow care plan, coordinate with out-patient providers, [facility], and [facility].
[2016-11-07 16:40] VITALS: BP 139/77; PULSE 128; RESP 20
--- NOTE | 2016-11-07 17:28 | NUR ---
Observations 0700 to 1900 Pt seems mostly unchanged from previous shifts. Pt is euthymic, and spent most of day out on unit coloring. Pt seems slightly manipulative of other pts and attempts to provoke them. "You should leave, go back to your room." Pt has no insight regarding provoking others. Pt attended community activities throughout the day and set goal in morning to straighten up room and behave herself. Pt ate 75-100% of meals and was observed every 15 minutes as ordered.
--- NOTE | 2016-11-07 19:55 | NUR ---
[id number]. nurs. S: "I may have to go and stay away for a few mths but then I want to go back to looking after my adopted children they said they would give me a house for us " O: Pt out in DR kumar on art projects has loud voice and [place] pt intolerant of young male peers out and intrusive presentation and her manner provocative rather than helpful. Pt interactive with peers attending grps and participating pt had family visiting this fl[place].
--- NOTE | 2016-11-07 21:03 | PCM.PNPSY ---
Subjective Date of Service Nov 07, 2016 Subjective Patient reports that the "radio" was quieter last night. Patient reports that she is willing to go to the adult family home. Patient had reportedly taunted male peer last night. Patient denies side effects. Sleep: 7.5+ "good" Appetite: "good" Suicidal and homicidal ideation: denies Auditory hallucinations: endorses, radio, as above. Patient reports hearing "Gema screaming at me all night." Visual hallucinations: denies Other Psychotic Symptoms: N/A Anxiety: denies Depression: denies Current Medications Current Medications Warfarin Sodium 0.5 mg ONCE ONCE PO Last administered on 11/06/16 17:11; Admin Dose 0.5 MG; Start 11/06/16 at 17:00; Stop 11/06/16 at 17:01; Status DC Warfarin Sodium 2 mg ONCE ONCE PO Last administered on 11/05/16 17:50; Admin Dose 2 MG; Start 11/05/16 at 17:00; Stop 11/05/16 at 17:01; Status DC Mental Status Exam Appearance: Neat/well groomed Attitude: Pleasant, Cooperative Behavior: Overtly anxious Affect: Restricted Mood: Anxious Thought Process/Associations: Logical/Sequential, Goal Directed, Tangential ( but improved) Speech Production: Normal Speech Rate: Normal Speech Articulation: Normal Thought Content: Suspicious Danger to Self/Suicidal Ideati: None Danger to Others: None Delusions: Paranoid (Endorses) Hallucinations: Auditory (Endorses), Visual (Denies) Consciousness: Alert Orientation: Person, Place, Date, Situation Memory: Grossly Intact Estimate Intellectual Function: Average Attention/Concentration & Cogn: Impaired Insight: Limited Judgement: Limited Mental Health Plan The patient is an 81-year-old female with a history of delusional disorder and 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 The patient is currently experiencing auditory hallucinations and paranoia as noted above. The patient appears to be tolerating risperidone with a reduction in her auditory hallucinations and paranoia but reports needing it earlier in the evening. She is not currently willing to start Namenda to potentially address her vascular dementia. We discussed housing options with the patient and that we are still waiting the assessment from home and community services. She was accepted at [facility] but did not wish to go there. If [facility] are unable to locate housing, the only option may be a longterm although they are currently declining to take her. Unclear whether increase of risperidone has been helpful. Despite the patient's report to the contrary, she appears to be receiving her outpatient inhalation medications. There appears to be a formulary substitution Advair Diskus with Symbicort. The patient was assessed by and accepted for an adult family home and is scheduled for discharge on Wednesday. The patient also reports a decrease in her auditory hallucinations of the "radio", but now reports hearing "Gema" screaming. 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 AXIS II Deferred. AXIS III 1. History of hypertension. 2. Chronic obstructive pulmonary disease. 3. Hyperlipidemia. 4. Deep venous thrombosis. AXIS IV psychosocial stressors moderate to severe with homelessness, poor insight, lack of social supports, and poor coping skills. AXIS V Global Assessment of Functioning current 40. Medications [place] 7.5/325 Metoprolol 12.5 mg twice daily Furosemide 20 mg daily Atorvastatin 5mg at bedtime Pantoprazole 40mg po daily Advair 250-50 bid prn Spiriva 18 g daily Aspirin 81 mg daily Singulair 10 mg nightly Cetirizine 5 mg at bedtime Combivent one spray 4 times a day as needed Risperidone 2 mg at bedtime Warfarin as per pharmacy PT/INR. Treatments 1. Continue risperidone 2 mg nightly at 8 PM, titrate as tolerated. 2. The patient has been accepted by an adult family home with discharge on Wednesday. 3. The patient is encouraged to participate with groups and individual therapy. 4. The patient will meet with the treatment team on a daily basis to assess symptoms, side effects, and response to treatment. 5. Case closed by Adult Protective Services. 6. Anticipate discharge on Wednesday. We will need to have warfarin discharge dose calculated. Sanjay Camejo MD Nov 07, 2016 11:12
[2016-11-07] MEDS: risperiDONE 2 mg Tablet PO SCH (21:40)
--- NOTE | 2016-11-08 01:23 | NUR ---
Observations 1900 to 0700 Pt was out in the DR coloring for most of the night. Pt visited with other Pt's until she went to bed. Pt first appeared asleep at 22:30 and was observed every 15 minutes through the night as directed.
[2016-11-08] MEDS: Tiotropium 18mcg/Cap 5 Capsule Inhaler Kit INHALATION SCH (08:12)
[2016-11-08] MEDS: Pantoprazole 40 mg ER24 Tablet PO SCH (08:13)
[2016-11-08] MEDS: HYDROcodone-APAP 7.5-325 mg Tablet PO PRN ×3 (08:14→21:40)
[2016-11-08] MEDS: Albuterol-Ipratropium 120 Spray 4 Gm Inhaler INHALATION PRN ×2 (08:19→21:44)
[2016-11-08 09:37] LABS: INR 2.32 ratio
--- NOTE | 2016-11-08 09:55 | PCM.PHAPRO ---
Progress Date of Service: Nov 08, 2016 Warfarin dosing Warfarin dosing per pharmacy Indication: atrial fibrillation INR goal: 2-3 -Nov 06-Nov 07-Nov 08-Oct 2.7 3.10 2.20 2.32 0.69 0.4 -0.9 0.12 2 0.5 MG 2.5 2.5 INR WITHIN RANGE, WILL CONTINUE WITH 2.5 MG DOSING AND WATCH INR TRENDS Pharmacy appreciates consult and will continue to monitor. THANKS! Rose Fabian PharmD Nov 08, 2016 09:55
--- NOTE | 2016-11-08 13:48 | NUR ---
Nursing Day Shift- S/O- Pt. was awake and well groomed for breakfast. She continues to be independent with her ADL's, oriented to her medications, and social with her peers. A- Pt. appears ready and appropriate for discharge. P- Probable discharge tomorrow. Cont. BHTP.
--- NOTE | 2016-11-08 20:51 | NUR ---
NURSING NOTE [id number] Mood: "Okay... I guess I'm worried about my daughter" Affect: mostly calm and pleasant w/one episode of agitation with a peer Behavior: maintains a regular presence in the dining room; coloring or watching TV w/peers. Her friend visited. Got into a verbal altercation w/a male peer, ELVIA, as he provoked her by shouting at her to "stop yelling so much." She responded to him in a verbally hostile manner and staff responded and escorted her peer from the dining room and back to his room. She maintained behavioral control thereafter. Thought processes= logical and linear, no overt delusions noted, denies SI/HI/AH/VH this shift. She endorsed anxiety about potential discharge tomorrow and "not knowing what to expect." Encouragement provided. Also endorsing depression regarding her daughter who lives in [place] and is being treated for cancer. PRNs [place] 7.5/325 for 07/06 bilateral leg and hip pain 07/06 @ 15:41. Pain brought down to a 5 upon reassessment.
--- NOTE | 2016-11-08 20:57 | PCM.PNPSY ---
Subjective Date of Service Nov 08, 2016 Subjective The patient reports that she had a nightmare last night regarding Gema and the radio, "so loud it woke me up at 1:30." The patient reports that the auditory hallucinations/radio stated, "Al said, turn that radio down, Gema." The patient has also been instigating a male peer for unclear reasons. The patient is still willing to go to the adult family home though indicates that she hopes to move to a large enough to accommodate for additional children. Patient denies side effects. Sleep: 7.5+ "good" Appetite: "good" Suicidal and homicidal ideation: denies Auditory hallucinations: endorses, radio, as above. Visual hallucinations: denies Other Psychotic Symptoms: N/A Anxiety: About adult family home Depression: denies Current Medications Current Medications Warfarin Sodium 2.5 mg DAILY@17 ONCE PO Last administered on 11/07/16 17:49; Admin Dose 2.5 MG; Start 11/07/16 at 17:00; Stop 11/07/16 at 17:01; Status DC Warfarin Sodium 2.5 mg DAILY@17 ONCE PO Last administered on 11/08/16 17:06; Admin Dose 2.5 MG; Start 11/08/16 at 17:00; Stop 11/08/16 at 17:01; Status DC Mental Status Exam Appearance: Neat/well groomed Attitude: Pleasant, Cooperative Behavior: Overtly anxious Affect: Restricted Mood: Anxious Thought Process/Associations: Logical/Sequential, Goal Directed, Tangential ( but improved) Speech Production: Normal Speech Rate: Normal Speech Articulation: Normal Thought Content: Suspicious Danger to Self/Suicidal Ideati: None Danger to Others: None Delusions: Paranoid (Endorses) Hallucinations: Auditory (Endorses), Visual (Denies) Consciousness: Alert Orientation: Person, Place, Date, Situation Memory: Grossly Intact Estimate Intellectual Function: Average Attention/Concentration & Cogn: Impaired Insight: Limited Judgement: Limited Mental Health Plan The patient is an 81-year-old female with a history of delusional disorder and 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 The patient is currently experiencing auditory hallucinations and paranoia as noted above. The patient appears to be tolerating risperidone with a minimal reduction in her auditory hallucinations and paranoia. She has not tolerated further titration of risperidone as she has developed a headache. She is not currently willing to start Namenda to potentially address her vascular dementia. Unclear whether increase of risperidone has been helpful. Despite the patient's report to the contrary, she appears to be receiving her outpatient inhalation medications. There appears to be a formulary substitution Advair Diskus with Symbicort. The patient was assessed by and accepted for an adult family home and is scheduled for discharge on Wednesday. The patient had been reporting a decrease in the "radio" over the preceding days but as discharge is closer, the patient is reporting an increase in symptoms. These should not interfere with discharge and are likely related to discharge anxiety. [place] AXIS I 1. Moderate vascular neurocognitive disorder. 2. Psychotic disorder, not otherwise specified. AXIS II Deferred. AXIS III 1. History of hypertension. 2. Chronic obstructive pulmonary disease. 3. Hyperlipidemia. 4. Deep venous thrombosis. AXIS IV psychosocial stressors moderate to severe with homelessness, poor insight, lack of social supports, and poor coping skills. AXIS V Global Assessment of Functioning current 40. Medications [place] 7.5/325 Metoprolol 12.5 mg twice daily Furosemide 20 mg daily Atorvastatin 5mg at bedtime Pantoprazole 40mg po daily Advair 250-50 bid prn Spiriva 18 g daily Aspirin 81 mg daily Singulair 10 mg nightly Cetirizine 5 mg at bedtime Combivent one spray 4 times a day as needed Risperidone 2 mg at bedtime Warfarin as per pharmacy PT/INR. Treatments 1. Continue risperidone 2 mg nightly at 8 PM, titrate as tolerated. 2. The patient has been accepted by an adult family home with discharge on Wednesday. 3. The patient is encouraged to participate with groups and individual therapy. 4. The patient will meet with the treatment team on a daily basis to assess symptoms, side effects, and response to treatment. 5. Case closed by Adult Protective Services. 6. Anticipate discharge on Wednesday. We will need to have warfarin discharge dose calculated by pharmacy. Sanjay Camejo MD Nov 08, 2016 20:57
[2016-11-08] MEDS: risperiDONE 2 mg Tablet PO SCH (21:36)
[2016-11-08] MEDS: Fluticasone-Salmererol 250-50 Inhaler INHALATION PRN (21:44)
--- NOTE | 2016-11-09 06:02 | NUR ---
Nursing note: fast food shift lead 0-07 Patient appears to be sleeping on safety checks during the night with no complaints offered.
[2016-11-09] MEDS: HYDROcodone-APAP 7.5-325 mg Tablet PO PRN ×2 (08:01→14:07)
[2016-11-09] MEDS: Pantoprazole 40 mg ER24 Tablet PO SCH (08:05)
[2016-11-09] MEDS: Albuterol-Ipratropium 120 Spray 4 Gm Inhaler INHALATION PRN (08:10)
[2016-11-09] MEDS: Tiotropium 18mcg/Cap 5 Capsule Inhaler Kit INHALATION SCH (08:10)
[2016-11-09 09:07] LABS: INR 2.1 ratio
[2016-11-09 10:14] VITALS: BP 113/76; PULSE 80; RESP 16
[2016-11-09] MEDS ORDERED: WARF1TAB PO (12:23)
[2016-11-09] MEDS ORDERED: ADV250INH INHALATION (12:24)
[2016-11-09] MEDS ORDERED: Hydrocodone/Acetaminophen PO (12:24)
[2016-11-09] MEDS ORDERED: Cetirizine Hcl PO (12:24)
[2016-11-09] MEDS ORDERED: TIZA4TAB4 PO (12:24)
[2016-11-09] MEDS ORDERED: METO25TA6 PO (12:24)
[2016-11-09] MEDS ORDERED: MONT10TA23 PO (12:24)
[2016-11-09] MEDS ORDERED: TIOT18CA3 INHALATION (12:24)
[2016-11-09] MEDS ORDERED: PANT40TA3 PO (12:24)
[2016-11-09] MEDS ORDERED: ASPI81TA3 PO (12:24)
[2016-11-09] MEDS ORDERED: IPRA4AER INHALATION (12:24)
[2016-11-09] MEDS ORDERED: RISP2TAB21 PO (12:24)
[2016-11-09] MEDS ORDERED: Acetaminophen PO (12:24)
[2016-11-09] MEDS ORDERED: ATOR10TA66 PO (12:24)
--- NOTE | 2016-11-09 12:44 | PCM.DIMED ---
Discharge Instructions Date of Service Nov 09, 2016 Dates of Hospitalization Oct 06, 2016 at 23:39 Discharge Diagnosis Discharge Diagnosis AXIS I 1. Moderate vascular neurocognitive disorder. 2. Psychotic disorder, not otherwise specified. AXIS II Deferred. AXIS III 1. History of hypertension. 2. Chronic obstructive pulmonary disease. 3. Hyperlipidemia. 4. Deep venous thrombosis. AXIS IV psychosocial stressors moderate to severe with homelessness, poor insight, lack of social supports, and poor coping skills. AXIS V Global Assessment of Functioning current 40. Medication Instructions Recommended patient takes medication as prescribed and not alter this unless under the direct care of a provider. Test Results 11/09/16 INR 2.10 PT 22.8 Diet No restrictions Activity No restrictions Call your provider Fever or Chills Patient Instructions Medications [place] 7.5/325 every 6 hours when necessary pain Metoprolol 12.5 mg twice daily Furosemide 20 mg daily Atorvastatin 5mg at bedtime Pantoprazole 40mg po daily Advair 250-50 bid prn Spiriva 18 g daily Aspirin 81 mg daily Singulair 10 mg nightly Cetirizine 5 mg at bedtime Combivent one spray 4 times a day as needed Risperidone 2 mg at bedtime Warfarin 2 mg daily, will need INR checked within 14 days Follow-up plan Follow-up with Dr. Elise Ramirezagit [facility] to 1517 1:25 PM Follow-up therapist Jenny Barclay [employer]th grade social studies teacher [phone] Daryrl is her Adult Protective Services machining and assembly supervisor Patient be transferred to an adult family home. Follow-up with PCP in: 2 weeks Adria Colvin MD Nov 09, 2016 12:44
--- NOTE | 2016-11-09 12:56 | NUR ---
Nursing Note [id number] Behavior S/O: Pt has good appetite. VS stable. Heart rate 80 & irregular. Attending groups. Pt demanding, telling others what to do & irritating them. Conversation tracking clear & organized with normal rate & rhythm. She is looking forward to her discharge today. Pt had [place] 7.5-325 for back pain at 0800 for pain at a "7" on a scale of 1-10/10 the worst. She stated, "It helped....The pain is a 5 now." A: No psychotic sx noted during this shift. P: Plans to D/C this afternoon.
--- NOTE | 2016-11-09 16:26 | NUR ---
Discharge Note Pt ready for discharge to [facility]. Pt will be picked up by there staff at 1700. Discharge instructions reviewed including crisis support resources. Pt verbalized understanding. Pt belongings inventoried with pt who signed receipt of them, including home medications which were retrieved from pharmacy. Pt denies pain at this time, no psychotic sx reported or observed. Pt denies SI, HI plan or intent. Pt gait steady and she is able to ambulate independently. Addendum: 11/09/16 at 1739 by AARON MCMANUS RN Pt discharged from unit at 1740
--- NOTE | 2016-11-10 01:14 | DIS ---
[address] [address] DISCHARGE SUMMARY PATIENT: ROXNAA ESPOSITO : 1935 MR#: [id number] ADMIT: 10/06/2016 JOB ID: [id number] DIS: 11/09/2016 IDENTIFICATION: The patient is an 81-year-old female with a history of vascular type dementia. She had been staying in an adult family care center prior to admission. She is on social security disability and Medicare through [employer] REASON FOR ADMISSION: The client was having increased symptoms of paranoia and was getting into increased conflicts with her roommates. SUMMARY OF PRESENT ILLNESS: The client is an 81-year-old female who had been having increasing symptoms of paranoia and delusional thought while in her current apartment complex. She was evicted due to the ongoing conflicts. She was believing that people were pumping poisonous gas into her apartment and videotaping her while in the shower. She does carry a diagnosis of vascular type dementia as well as requiring anticoagulation therapy with warfarin. She has a history of conflictual relationships with family members and has essentially estranged herself from family except for a daughter that is living in [place]. At the time of admission, she was somewhat confused and disoriented. HOSPITAL COURSE: The client was admitted to our unit and was provided with a high degree of safety through the structure and active adult engagement she received here. We engaged her in one-to-one unit and group therapies focused on improving coping skills and decrease in psychotic symptoms. The client was hard of hearing and it was difficult for her to initially engage in the program. For the first several weeks, she refused any type of medications. She was able to engage quite easily with other patients. Fairly rapidly, she was active and was participating well in unit therapy. She stabilized rather quickly, and her main difficulty was placement. She kept refusing to go to different placement options. Finally we found an adult group family home. She met the caregivers and felt safe going to this dispo. She did finally agree to take low-dose Risperdal 2 mg daily. It is unclear how affective the Risperdal has been for her symptoms. I believe she responded better to the structure of the unit and to the active adult engagement. Nonetheless, she does have a marked decrease in paranoia, and whether this was the medication or the structure, we will discharge her on this current dose of Risperdal. MENTAL STATUS EXAM: The client is neatly dressed, calm and pleasant. She spoke in a clear and articulate manner. Her mood was good. Her affect was bright. Behavior within normal limits. Thought process logical and goal oriented. Thought content, client has significant trouble with memory. She shows no evidence of flight of ideas, loosening of associations or thought disorganization. She denied suicidal ideation, plan, or intent. She was alert. She was oriented to person and place, not time. Her attention and concentration were mildly impaired. Memory, immediate, short and long-term are moderately impaired. Insight and judgment is poor. Impulse control good. Reality testing intact. Competence to handle current stressors appeared to have returned to baseline. DISCHARGE DIAGNOSES: AXIS I: 1. Moderate vascular neurocognitive disorder. 2. Psychotic disorder, unspecified. AXIS II: Deferred. AXIS III: History of hypertension, chronic obstructive pulmonary disease, and deep venous thromboses. AXIS IV: Moderate. AXIS V: Current Global Assessment of Functioning equal to 40. DISCHARGE MEDICATIONS: 1. Risperdal 2 mg h.s. 2. Warfarin 2 mg daily. 3. Metoprolol 12.5 b.i.d. 4. Lasix 20 daily. 5. Atorvastatin 5 mg daily. 6. Pantoprazole 40 daily. 7. Advair 250 mg b.i.d. 8. Spiriva 18 daily. 9. Aspirin 81 mg daily. 10. Singulair 10 mg q.h.s. ACTIVITIES AND DIET: No restrictions. FOLLOW UP WITH APPOINTMENTS: The client to follow up with Dr. Obdulio Leos on November 11, 2016, at 1:25 p.m. The client to follow up with therapist, Jenny , social media community manager [phone]. The client will be discharged to an adult family home. PROGNOSIS: Fair.
== END 2016-11-09 17:40 | disposition home or self-care (01) | DRG 884 ==
LOC: SED 15:19 → MHC 23:39
PROVIDERS: ADMIT Psychiatry & Neurology Psychiatry; ATTEND Psychiatry & Neurology Psychiatry
DX: F01.50 Vascular dementia, unspecified severity, without behavioral disturbance, psychotic disturbance, mood disturbance, and anxiety (principal); F22 Delusional disorders; J44.9 Chronic obstructive pulmonary disease, unspecified; I10 Essential (primary) hypertension; I48.91 Unspecified atrial fibrillation; K21.9 Gastro-esophageal reflux disease without esophagitis; E78.5 Hyperlipidemia, unspecified; F29 Unspecified psychosis not due to a substance or known physiological condition; Z79.01 Long term (current) use of anticoagulants; Z59.0 Homelessness; Z86.718 Personal history of other venous thrombosis and embolism

== ENCOUNTER 2017-01-26 18:34 | Emergency (ER) | payer MEDICARE, MEDICAID ==
[~2017-01-26 18:34] MED LIST changes: +ADV250INH INHALATION; -ALBU8.5H2 INHALATION; +ATOR10TA66 PO; +Acetaminophen PO; +Cetirizine Hcl PO; -HYDR-3825 PO; +Hydrocodone/Acetaminophen PO; -IPRA4AER IH; +IPRA4AER INHALATION; -LEVO5TAB13 PO; -LOVA20TA PO; +PANT40TA3 PO; -QUET50TA55 PO; +RISP2TAB21 PO; -SYMINH IH; -TIOT18CA3 IH; +TIOT18CA3 INHALATION
[2017-01-26 18:50] VITALS: BP 133/100; PULSE 148; RESP 17; O2SAT 98
--- NOTE | 2017-01-26 19:06 | ED.REPORT ---
HPI-General Illness Date of Service January 26, 2017 ED Provider: Raymond Baker MD 81 y/o female with a hx dementia, depression, anxiety, HTN, COPD, AFIB (on Warfrin) and asthma presents to the ED via EMS complaining of auditory hallucinations, onset yesterday. The pt states that "they are playing tapes. At night, they are playing tapes and they just keep playing." She reports they are calling her name. She reports having chest pain earlier today which has resolved now and experiencing occasional SOB. Pt denies suicidal or homicidal ideations. The pt was recently evicted from her apartment and had been living at a hotel initially before moving [facility] [place]. She reports that at the [facility], "a couple of new guys came in and they were worried those men might hurt me" so she returned to a motel in [facility].The pt initially stated she doesn't know why she was brought in to the hospital today but later stated that "she doesn't feel good and wants to be helped". She reports the hotel staff and her outsole caser told her to go to the ED. The pt is oriented to time and place. Nursing Notes Stated Complaint: HEARING VOICES Chief Complaint: General Complaint Nursing Notes Reviewed: Yes Allergies: Coded Allergies: Penicillins (Verified Allergy, Severe, 01/26/17) cefuroxime (Verified Allergy, Intermediate, unk, 01/26/17) naproxen (Verified Allergy, Intermediate, unk, 01/26/17) tetanus and diphtheria toxoids (Verified Allergy, Mild, SWELLING AND HIVES , 01/26/17) Sulfa (Sulfonamide Antibiotics) (Verified Allergy, Unknown, photosensitive , 01/26/17) Scheduled ([Cetirizine Hcl]) 10 MG TABLET 5 MG PO HS Aspirin Chew (Aspirin Chew) 81 Mg Chew 81 MG PO DAILY Atorvastatin Calcium (Atorvastatin Calcium) 10 Mg Tablet 5 MG PO HS Furosemide (Lasix) 20 Mg Tablet 20 MG PO DAILY Metoprolol Tartrate (Metoprolol Tartrate) 25 Mg Tablet 12.5 MG PO BID Montelukast (Montelukast) 10 Mg Tablet 10 MG PO HS Pantoprazole DR (Pantoprazole DR) 40 Mg Tablet.dr 40 MG PO DAILY Risperidone (Risperdal) 2 Mg Tablet 2 MG PO 20 Tiotropium [place] (Spiriva) 18 Mcg Cap.w.dev 18 MCG INHALATION DAILY Warfarin Sodium (Coumadin) 1 Mg Tablet 2 MG PO DAILY INFO FROM 07/24/16 VISIT Scheduled PRN ([Acetaminophen]) 325 MG TABLET 650 MG PO Q4H PRN PRN Mod pain(4-6 pain score) or RODRIGUEZ ([Hydrocodone/Acetaminophen]) 1 TABLET TABLET 1 TABLET PO Q6H PRN PRN For Moderate Pain Albuterol/Ipratropium (Combivent Respimat Inhal [place]) 120 Spr/4 Gm Inhaler 1 SPR INHALATION QID PRN PRN For Shortness of Breath Fluticasone/Salmeterol (Advair 250-50 Diskus) 60 Puff/Inh Disk 1 PUFF INHALATION BID PRN PRN For Shortness of Breath Tizanidine (Tizanidine) 4 Mg Tablet 4 MG PO Q8H PRN PRN For Spasm General Time Seen by MD: 18:42 Chief Complaint Other (Auditory Hallucinations) Hx Obtained From: Spouse Arrived By: Ambulance Sudden in Onset?: Yes Onset Occurred: Yesterday Symptom Duration: Intermittent Severity: Current: No pain currently Severity: Maximum: No pain Recent Healthcare: No recent doctor visit Similar Sx Previous: No Past Medical History Past Medical History A-Fib/flutter on Warfarin Dementia Vascular type of dementia with paranoid features/depression, Unspecified Psychotic Disorder(recent onset); Paranoid delusions that her neighbor is trying to kill her Reports: COPD, Diabetes mellitus, GERD, Hyperlipidemia, Hypertension Past Surgical History D&C Reports: Tubal ligation Smoking History Former Smoker Social History Previous meth use Alcohol Use: Denies alcohol use Drug Use: Denies drug use Other Social History: Good social support, , Local resident Ambulatory Status Independent Review of Systems Full Review of Systems Respiratory: Reports: Shortness of breath (Intermittent) Cardiovascular: Reports: Chest pain (Resolved) Psychiatric: Reports: Hallucinations, auditory, Denies: Homicidal ideation, Suicidal ideation Complete sys rev & neg: except as marked. Physical Exam Tachycardia noted on triage VS. Had a-fib/flutter, given 12.5 mg metoprolol. (usual home med) here tachycardia resolved. Medically cleared Vital Signs Vital Signs Date Time Temp Pulse Resp B/P Pulse Ox O2 Delivery O2 Flow Rate FiO2 01/27/17 01:11 36.7 98 17 128/84 98 Room Air 01/26/17 18:50 36.4 148 17 133/100 98 Room Air Initial VS: Reviewed Head / Eyes: Atraumatic, Normocephalic, PERRL Neck: Supple, Full range of motion Back: No CVA tenderness Extremities: Vascular intact, Neuro intact, No swelling, No tenderness Skin: Warm, Dry, No cyanosis General/Constitutional: Awake, Alert, Well appearing Hard of hearing. Cardiovascular: Heart rate NL, Heart sounds NL, No gallop, No murmurs Heart Rate / Rhythm: Positive: Irreg irregular rhythm Abdomen: Atraumatic, Soft, Non-tender, No guarding, No rebound Neurologic: Oriented X3, Speech NL, No motor deficits, No sensory deficits Psychiatric: Not suicidal, Not homicidal Abnormal Mood/Affect: Positive: Anxious Interpretation & Diagnostics Lab Results Interpretation Result Diagram: 01/26/17190901/26/171909 Test 01/26/17 19:10 01/26/17 20:30 White Blood Count 8.1th/mm3 (3.8-10.1) Red Blood Count 4.72mil/mm3 (3.90-5.20) Hemoglobin 13.1g/dL (12.0-15.6) Hematocrit 41.5% (35.0-46.0) Mean Corpuscular Volume 87.9fL (81-100) Mean Corpuscular Hemoglobin 27.8pg (27.0-35.0) Mean Corpuscular Hemoglobin Concent 31.6% (32.0-37.0) Red Cell Distribution Width 15.5% (12.3-15.4) Platelet Count 235bil/L (150-400) Neutrophils (%) (Auto) 76.1% (40-74) Lymphocytes (%) (Auto) 14.1% (14-46) Monocytes (%) (Auto) 8.9% (4-12) Eosinophils (%) (Auto) 0.6% (0-5) Basophils (%) (Auto) 0.2% (0-3) Prothrombin Time 24.7sec (8.1-12.5) Prothromb Time International Ratio 2.27ratio Sodium Level 139mEq/L (134-144) Potassium Level 3.8mEq/L (3.5-5.2) Chloride Level 101mEq/L (97-108) Carbon Dioxide Level 21mmol/L (18-29) Blood Urea Nitrogen 22mg/dL (8-27) Creatinine 0.69mg/dL (0.57-1.00) Estimat Glomerular Filtration Rate 117mL/min (>59) Glucose Level 108mg/dL (60-99) Calcium Level 9.6mg/dL (8.5-10.1) Total Bilirubin 0.4mg/dL (0.0-1.2) Aspartate Amino Transf (AST/SGOT) 15U/L (0-50) Alanine Aminotransferase (ALT/SGPT) 12U/L (0-32) Alkaline Phosphatase 74U/L (25-165) Troponin T < 0.010ug/L (0.0-0.011) Total Protein 7.3g/dL (6.4-8.4) Albumin 4.2g/dL (3.4-5.0) Thyroid Stimulating Hormone (TSH) 0.849uIU/mL (0.450-4.500) Urine Color Yellow (YELLOW) Urine Appearance Hazy (CLEAR,HAZY) Urine pH 5.0 (5.0-8.0) Urine Specific [place] 1.039 (1.003-1.035) Urine Protein Tracemg/dL (NEG,TRACE) Urine Glucose (UA) Negativemg/dL (NEGATIVE) Urine Ketones Negativemg/dL (NEGATIVE) Urine Occult Blood Negative (NEGATIVE) Urine Nitrite Negative (NEGATIVE) Urine Bilirubin Negative (NEGATIVE) Urine Urobilinogen Normalmg/dL (NORMAL) Urine Leukocyte Esterase Negative (NEGATIVE) Urine RBC 0-2/hpf (0-2) Urine WBC 0-5/hpf (0-5) Urine Epithelial Cells Moderate/hpf (NONE-MOD) Urine Crystals Oxalic acid crystals (NONE Urine Bacteria None/hpf (NONE-FEW) Urine Hyaline Casts None/lpf (NONE) Urine Granular Casts None seen (NONE SEEN) Urine Waxy Casts None seen (NONE SEEN) Urine Red Blood Cell Casts None seen (NONE SEEN) Urine White Blood Cell Casts None seen (NONE SEEN) Urine Mucus None seen (None Seen) Urine Trichomonas None seen (NONE SEEN) Urine Yeast None (NONE SEEN) Urinalysis Comment None Urine Culture Reflexed Not indicated ECG Interpretation ECG Interpretation: Atrial fibrillation. Rate 117 IVCD, atypical RBBB Nonspecific T abnmormalities, lateral leads. No change from previous ECG, dated 10/06/16 Time: 18:58 Interpreted by: ED physician Re-Eval/Medical Decision Source of Hx: Old records Counseled Regarding: Diagnosis, Lab results, Need for follow-up, When/why to return to ED Discharge & Departure Shift Change Sign-Out Patient Care Transferred: Yes Discussed Complaint(s): Yes Input from Consult: Awaiting social servide eval To Dr Perez at 0300 Primary Impression: Paranoid behavior Additional Impression: Rapid atrial fibrillation Discharge Condition All VS Reviewed: Yes Referrals: Obdulio Leos MD (PCP) Scribe Attestation Portions of this note were transcribed by Galen Wolf. I, , personally performed the history, physical exam and medical decision-making;I reviewed and confirmed the accuracy of the information in the transcribed note. Signed by Mery Duenas. 01/26/17 TIME copies to: Obdulio Leos MD, Donald L MD January 26, 2017 19:06 Galen Wolf January 26, 2017 19:37 Galen Wolf January 26, 2017 19:37
[2017-01-26 19:19] LABS: BASOPHILS % (AUTO) 0.2 % (0-3); EOSINOPHILS % (AUTO) 0.6 % (0-5); MONOCYTES % (AUTO) 8.9 % (4-12); Mean Corpuscular Hemoglobin 27.8 pg (27.0-35.0); Mean Corpuscular Volume 87.9 fL (81-100); NEUTROPHILS % (AUTO) 76.1 % (40-74); Platelet Count 235 bil/L (150-400)
[2017-01-26 19:32] LABS: INR 2.27 ratio
[2017-01-26 19:43] LABS: TROPONIN T < 0.010 ug/L (0.0-0.011)
[2017-01-26 20:59] LABS: APPEARANCE,URINE HAZY (CLEAR,HAZY); COLOR,URINE YELLOW (YELLOW); OCCULT BLOOD,URINE NEGATIVE (NEGATIVE); UROBILINOGEN,URINE NORMAL (NORMAL)
[2017-01-27 01:11] VITALS: BP 128/84; PULSE 98; RESP 17; O2SAT 98
[2017-01-27 06:38] VITALS: BP 122/68; PULSE 114; RESP 20; O2SAT 94
[2017-01-27] MEDS ORDERED: FURO10SO2 PO (09:46)
[2017-01-27] MEDS ORDERED: TIOT18CA3 IH (09:46)
[2017-01-27] MEDS ORDERED: WARF4TAB6 PO (09:46)
[2017-01-27] MEDS ORDERED: FESO4TAB PO (09:46)
[2017-01-27] MEDS ORDERED: WARF2TAB7 PO (09:46)
[2017-01-27] MEDS ORDERED: FUR20 PO (09:48)
[2017-01-27 11:24] VITALS: BP 110/70; PULSE 78; RESP 18; O2SAT 97
[2017-01-27] MEDS ORDERED: HYDROcodone-APAP 10-325 mg PO ONE (11:25)
== END 2017-01-27 13:33 | disposition home or self-care (01) ==
LOC: SED 18:34 → EDBD 18:34 → SED 01-27 13:33
DX: R44.0 Auditory hallucinations (principal); F23 Brief psychotic disorder; I48.91 Unspecified atrial fibrillation; F32.9 Major depressive disorder, single episode, unspecified; J44.9 Chronic obstructive pulmonary disease, unspecified; E11.9 Type 2 diabetes mellitus without complications; K21.9 Gastro-esophageal reflux disease without esophagitis; E78.5 Hyperlipidemia, unspecified; I10 Essential (primary) hypertension; J45.909 Unspecified asthma, uncomplicated; R06.02 Shortness of breath; R07.9 Chest pain, unspecified; Z87.891 Personal history of nicotine dependence; Z79.01 Long term (current) use of anticoagulants; Z88.0 Allergy status to penicillin; Z88.8 Allergy status to other drugs, medicaments and biological substances; Z88.2 Allergy status to sulfonamides; Z88.7 Allergy status to serum and vaccine; Z79.82 Long term (current) use of aspirin